=== PATIENT | female | born 1940 | race Caucasian/White ===

== ENCOUNTER 2017-03-23 09:40 | Emergency (ER) | payer MEDICARE ==
[~2017-03-23] VITALS: Ht 149.9 cm; Wt 41.4 kg
[~2017-03-23 09:40] MED LIST: APIX5TAB PO; ASPI81TA81 PO; ATOR20TA15 PO; BACL10TA PO; CALC500T35 PO; OMEP40CA2 PO; PERC10TA27 PO; TRAZ50TA12 PO
[2017-03-23 09:41] VITALS: BP 125/62; PULSE 77; RESP 16; TEMP 98.1; O2SAT 96
[2017-03-23] MEDS ORDERED: IBAN150T3 PO (09:59)
[2017-03-23] MEDS ORDERED: SENN8.8L PO (09:59)
[2017-03-23] MEDS ORDERED: MIRT1TAB PO (09:59)
[2017-03-23] MEDS ORDERED: BACL10TA PO (09:59)
[2017-03-23] MEDS ORDERED: AMLO10TA2 PO (09:59)
[2017-03-23] MEDS ORDERED: PANT40TA3 PO (09:59)
[2017-03-23] MEDS ORDERED: TETANUS/DIPHTHERIA TOXOID ADULT 0.5 ML VIAL IM ONE (10:00)
[2017-03-23] MEDS ORDERED: VANCOMYCIN INJ 600 MG in SODIUM CHLOR 0.9% 250 ML INJ 250 ML IV ONE (10:00)
[2017-03-23] MEDS ORDERED: SODIUM CHLOR 0.9% 1000 ML INJ 1,000 ML IV ONE (10:00)
--- NOTE | 2017-03-23 10:06 | PD ---
HPI Chief Complaint: Skin Problem Time Seen by Provider: 09:50 Travel History International Travel<30 days: No Contact w/Intl Traveler<30days: No Traveled to known affect area: No History of Present Illness HPI Patient is a 76-year-old female who presents to emergency room for evaluation of infection behind the ears. Patient reports that 3 days ago, she noticed increased redness behind her right ear, patient reports that the redness has been progressing and going down her neck. Patient reports that yesterday, she noticed that she had increased redness behind her left ear. Patient reports that symptoms are pruritic as well as painful in nature. Patient reports she has noticed drainage from the sites. Patient denies fever/chills. Denies using any new creams, lotions, detergents, facial products or hair products. Patient reports that her tetanus is not up-to-date. PFSH Past Medical History Hx Anticoagulant Therapy: Yes Arthritis: No Atrial Fibrillation: Yes Heart Rhythm Problems: Yes (afib) Cancer: No Cardiac Catheterization: Yes Cardiovascular Problems: Yes (afib) High Cholesterol: Yes COPD: Yes Cerebrovascular Accident: No Coronary Artery Disease: Yes Diabetes: No Diminished Hearing: Yes ([place]) Endocrine: No Genitourinary: No Hepatitis: No Hiatal Hernia: No Hypertension: Yes Immune Disorder: No Musculoskeletal: Yes (chronic back pain) Neurologic: Yes Psychiatric: No Reproductive: No Respiratory: Yes (copd) Immunizations Current: Yes Migraines: Yes Thyroid Disease: No Tetanus Vaccination: < 5 Years Influenza Vaccination: Yes Menopausal: Yes : 1 Para: 1 Past Surgical History Abdominal Surgery: No Body Medical Devices: screws in spine Cardiac Surgery: No Coronary Stent: Yes Ear Surgery: No Endocrine Surgery: No Eye Surgery: Yes (cateract) Genitourinary Surgery: No Gynecologic Surgery: Yes (hysterectomy prolapse) Hysterectomy: Yes Joint Replacement: No Neurologic Surgery: Yes (Spine) Oral Surgery: No Pacemaker: No Thoracic Surgery: No Other Surgery: Yes (varicose vein) Social History Alcohol Use: No (DENIES) Tobacco Use: Yes (1/2 PPD) Substance Use: No Allergies-Medications (Allergen,Severity, Reaction): Coded Allergies: Adhesives (Verified Allergy, Severe, RASH, 03/23/17) Reported Meds & Prescriptions Reported Meds & Active Scripts Active Probiotic (Lactobacillus Acidophilus) 1 Cap Cap 1 Cap PO TIDAC 10 Days Clindamycin (Clindamycin HCl) 300 Mg Cap 300 Mg PO Q6H 10 Days Reported Ibandronate (Ibandronate Sodium) 150 Mg Tab 150 Mg PO Q28D Baclofen 10 Mg Tab 10 Mg PO TID Amlodipine (Amlodipine Besylate) 10 Mg Tab 10 Mg PO DAILY Senexon Liq (Sennosides) 8.8 Mg/5 Ml Liq 8.8 Mg PO BID Mirtazapine 7.5 Mg Tab 7.5 Mg PO HS Pantoprazole (Pantoprazole Sodium) 40 Mg Tab 40 Mg PO DAILY Aspir-81 (Aspirin) 81 Mg Tabdr 1 Tab PO DAILY Atorvastatin (Atorvastatin Calcium) 20 Mg Tab 20 Mg PO DAILY Baclofen 10 Mg Tab 10 Mg PO TID Eliquis (Apixaban) 5 Mg Tab 5 Mg PO BID Percocet (Oxycodone-Acetaminophen) 10-325 mg Tab 1 Tab PO Q4H PRN Review of Systems General / Constitutional: No: Fever, Chills Skin: Positive Rash, Positive Itching, Positive Dryness Physical Exam Narrative GENERAL: No acute distress, nontoxic SKIN: Focused skin assessment warm/dry. Patient with bilateral ears red, swollen, there is drainage from the back of her right ear, there is redness from her right ear down to her neck, patient does have increased redness and swelling to her left ear, posterior auricle swelling and drainage with pain on palpation b/l HEAD: Atraumatic. Normocephalic. EYES: Pupils equal and round. No scleral icterus. No injection or drainage. ENT: No nasal bleeding or discharge. Mucous membranes pink and moist. NECK: Trachea midline. No JVD. CARDIOVASCULAR: Regular rate and rhythm. No murmur appreciated. RESPIRATORY: No accessory muscle use. Clear to auscultation. Breath sounds equal bilaterally. GASTROINTESTINAL: Abdomen soft, non-tender, nondistended. Hepatic and splenic margins not palpable. MUSCULOSKELETAL: No obvious deformities. No clubbing. No cyanosis. No edema. NEUROLOGICAL: Awake and alert. No obvious cranial nerve deficits. Motor grossly within normal limits. Normal speech. PSYCHIATRIC: Appropriate mood and affect; insight and judgment normal. Data Data Last Documented VS Vital Signs Date Time Temp Pulse Resp B/P Pulse Ox O2 Delivery O2 Flow Rate FiO2 03/23/17 12:19 78 14 122/60 100 Room Air 03/23/17 09:41 98.1 Orders Complete Blood Count With Diff (03/23/17 09:54) Comprehensive Metabolic Panel (03/23/17 09:54) Prothrombin Time / Inr (Pt) (03/23/17 09:54) Act Partial Throm Time (Ptt) (03/23/17 09:54) Vancomycin Inj (Vancomycin Inj) (03/23/17 10:00) Ct Facial Bones W Iv Contrast (03/23/17 ) Sodium Chlor 0.9% 1000 Ml Inj (Ns 1000 M (03/23/17 10:00) Blood Culture (03/23/17 10:07) Diphenhydramine Inj (Benadryl Inj) (03/23/17 10:15) Iohexol 350 Inj (Omnipaque 350 Inj) (03/23/17 11:02) Dexamethasone Inj (Decadron Inj) (03/23/17 11:30) Labs Laboratory Tests Test 03/23/17 10:05 White Blood Count 5.1 TH/MM3 Red Blood Count 4.02 MIL/MM3 Hemoglobin 12.7 GM/DL Hematocrit 38.2 % Mean Corpuscular Volume 95.0 FL Mean Corpuscular Hemoglobin 31.6 PG Mean Corpuscular Hemoglobin 33.3 % Concent Red Cell Distribution Width 13.8 % Platelet Count 174 TH/MM3 Mean Platelet Volume 8.2 FL Neutrophils (%) (Auto) 60.6 % Lymphocytes (%) (Auto) 26.1 % Monocytes (%) (Auto) 7.3 % Eosinophils (%) (Auto) 4.5 % Basophils (%) (Auto) 1.5 % Neutrophils # (Auto) 3.1 TH/MM3 Lymphocytes # (Auto) 1.3 TH/MM3 Monocytes # (Auto) 0.4 TH/MM3 Eosinophils # (Auto) 0.2 TH/MM3 Basophils # (Auto) 0.1 TH/MM3 CBC Comment DIFF FINAL Differential Comment Prothrombin Time 11.4 SEC Prothromb Time International 1.0 RATIO Ratio Activated Partial 29.4 SEC Thromboplast Time Sodium Level 146 MEQ/L Potassium Level 3.6 MEQ/L Chloride Level 109 MEQ/L Carbon Dioxide Level 29.8 MEQ/L Anion Gap 7 MEQ/L Blood Urea Nitrogen 21 MG/DL Creatinine 0.81 MG/DL Estimat Glomerular Filtration 68 ML/MIN Rate Random Glucose 138 MG/DL Calcium Level 9.2 MG/DL Total Bilirubin 0.4 MG/DL Aspartate Amino Transf 19 U/L (AST/SGOT) Alanine Aminotransferase 21 U/L (ALT/SGPT) Alkaline Phosphatase 88 U/L Total Protein 6.6 GM/DL Albumin 3.5 GM/DL [facility] Medical Decision Making Medical Screen Exam Complete: Yes Emergency Medical Condition: Yes Interpretation(s) Vital Signs Date Time Temp Pulse Resp B/P Pulse Ox O2 Delivery O2 Flow Rate FiO2 03/23/17 09:41 98.1 77 16 125/62 96 Differential Diagnosis Bilateral ear redness and drainage could be secondary to cellulitis, mastoiditis , allergic reaction, contact dermatitis Narrative Course Patient is a 76-year-old female who presents to emergency room with complaints of bilateral ear redness and drainage. Patient reports that she noticed drainage behind her right ear and noticed that the redness is going down her neck. Patient with no fevers or chills, reports that her tetanus is not up-to- date. Vital Signs Date Time Temp Pulse Resp B/P Pulse Ox O2 Delivery O2 Flow Rate FiO2 03/23/17 09:41 98.1 77 16 125/62 96 Labs as well as CT of the facial bones with IV contrast ordered to evaluate for mastoiditis. IV antibiotics as well as tetanus ordered. Patient now reports that her tetanus is up to date, tetanus canceled. CBC & BMP Diagram 03/23/17 10:05 All labs reviewed, blood cultures pending. CT of the facial bone with IV contrast shows a normal examination. There is no evidence of mastoiditis. Patient with most likely cellulitis of the face. I reviewed all labs and all studies with patient in detail. Plan to start patient on antibiotics. Patient will follow-up with her primary care doctor. Understands need to follow-up with primary care doctor or return to the emergency room in 48 hours for reevaluation. Patient understands that she must return to the emergency room if symptoms worsen or progress or she develops fevers or chills. Patient will take probiotics or eat plenty of the overdose with the clindamycin. Signs and symptoms of when to return to the emergency room reviewed with patient in detail. Diagnosis Primary Impression: Facial cellulitis Patient Instructions: General Instructions, Narcotic given in the ED Additional Instructions: Please provide patient with a copy of her lab work and studies at discharge Return to emergency room or your primary care doctor in 48 hours for reevaluation of your symptoms, return to emergency room earlier if symptoms progress or worsen or if you develop fevers or chills Please take all antibiotics as prescribed Please take a probiotic or eat plenty yogurt with your antibiotics. Please follow-up with cultures from today Please call your primary care doctor first thing when you leave this emergency room for earliest follow-up within 3 days Med/Other Pt SpecificInfo: Prescription(s) given Scripts Lactobacillus Acidophilus (Probiotic)1 Cap Cap1 Cap PO TIDAC 10 Days Ref 0 Prov:Negrita Norton DO 03/23/17 Clindamycin 300 Mg Evv375 Mg PO Q6H 10 Days Ref 0 Prov:Negrita Norton DO 03/23/17 Disposition: 01 DISCHARGE HOME Condition: Stable Negrita Norton DO March 23, 2017 10:06
[2017-03-23] MEDS ORDERED: diphenhydrAMINE HCL 50 MG/ML VIAL IV PUSH ONE (10:15)
[2017-03-23 10:20] LABS: CHLORIDE 109 MEQ/L (98-107); POTASSIUM 3.6 MEQ/L (3.5-5.1); SODIUM (NA) 146 MEQ/L (136-145)
[2017-03-23 10:23] LABS: AUTOMATED NEUTROPHIL # 3.1 TH/MM3 (1.8-7.7); BASOPHIL # 0.1 TH/MM3 (0-0.2); BASOPHIL % 1.5 % (0.0-2.0); EOSINOPHIL # 0.2 TH/MM3 (0-0.4); EOSINOPHIL % 4.5 % (0.0-4.0); HEMATOCRIT 38.2 % (35.0-46.0); HEMO FLAGS DIFF FINAL; LYMPH % 26.1 % (9.0-44.0); LYMPHOCYTE # 1.3 TH/MM3 (1.0-4.8); MEAN CORPUSCULAR HEMOGLOBIN 31.6 PG (27.0-34.0); MEAN CORPUSCULAR HGB CONC 33.3 % (32.0-36.0); MONO % 7.3 % (0.0-8.0); NEUT % 60.6 % (16.0-70.0); PLATELET COUNT 174 TH/MM3 (150-450); RED BLOOD COUNT 4.02 MIL/MM3 (4.00-5.30); RED CELL DISTRIBUTION WIDTH 13.8 % (11.6-17.2); WHITE BLOOD COUNT 5.1 TH/MM3 (4.0-11.0)
[2017-03-23 10:24] LABS: ANION GAP 7 MEQ/L (5-15); APTT (PATIENT) 29.4 SEC (24.3-30.1); BICARBONATE 29.8 MEQ/L (21.0-32.0); BLOOD UREA NITROGEN 21 MG/DL (7-18); PROTHROMBIN TIME - PATIENT 11.4 SEC (9.8-11.6)
[2017-03-23 10:27] LABS: ALT (GPT) 21 U/L (10-53); AST (GOT) 19 U/L (15-37); GLOMERULAR FILTRATION RATE 68 ML/MIN (>89)
[2017-03-23 10:29] LABS: TOTAL BILIRUBIN ADULT 0.4 MG/DL (0.2-1.0)
[2017-03-23 10:30] LABS: ALKALINE PHOSPHATASE 88 U/L (45-117)
[2017-03-23] MEDS ORDERED: IOHEXOL 350 MG/ML 10 ML VIAL (for RAD DIAG) IV ONE (11:02)
--- NOTE | 2017-03-23 11:17 | RADHPO ---
EXAM DATE/TIME: 03/23/2017 10:47 [facility] COMPARISON: No previous studies available for comparison. INDICATIONS : Right facial pain, swelling and redness. Evaluate for tumor. IV CONTRAST: 60 cc Omnipaque 350 (iohexol) IV RADIATION DOSE: 29.88 CTDIvol (mGy) MEDICAL HISTORY : Chronic obstructive pulmonary disease. Hypertension. Cardiovascular disease SURGICAL HISTORY : Hysterectomy. ENCOUNTER: Initial ACUITY: 4 - 6 days PAIN SCALE: 7/10 LOCATION: Right facial TECHNIQUE: Volumetric scanning of the facial bones was performed. Using automated exposure control and adjustme nt of the mA and/or kV according to patient size, radiation dose was kept as low as reasonably achiev able to obtain optimal diagnostic quality images. FINDINGS: ORBITS: The orbital and infraorbital osseous structures are intact. The retroconal structures have a normal configuration. No radiopaque foreign bodies are seen. NASAL BONE: The nasal bone and maxillary spine are intact ZYGOMATIC ARCHES: Symmetric without evidence of fracture. SINUSES: The maxillary, ethmoid and frontal sinuses are intact. No air-fluid levels seen. NASAL CAVITY: The nasal septum is intact and midline. The lacrimal ducts are intact. SOFT TISSUES: No radiopaque foreign bodies seen. No soft-tissue swelling is seen. INTRACRANIAL: No intracranial air seen. CRIBIFORM PLATE: Grossly intact. CONCLUSION: Normal examination. Virgil Mendoza MD on March 23, 2017 at 11:08 Board Certified Radiologist. This report was verified electronically.
[2017-03-23] MEDS ORDERED: CLIN1CAP6 PO (11:22)
[2017-03-23] MEDS ORDERED: LACTCAP8 PO (11:22)
[2017-03-23] MEDS ORDERED: DEXAMETHASONE SOD PHOS 20 MG/5 ML VIAL IV PUSH ONE (11:30)
[2017-03-23 12:19] VITALS: BP 122/60; PULSE 78; RESP 14; O2SAT 100
== END 2017-03-23 12:53 | disposition home or self-care (01) ==
LOC: PHED 09:40
DX: L03.211 Cellulitis of face (principal); F17.210 Nicotine dependence, cigarettes, uncomplicated; I48.91 Unspecified atrial fibrillation; E78.00 Pure hypercholesterolemia, unspecified; J44.9 Chronic obstructive pulmonary disease, unspecified; I25.10 Atherosclerotic heart disease of native coronary artery without angina pectoris; I10 Essential (primary) hypertension; Z79.01 Long term (current) use of anticoagulants; Z95.5 Presence of coronary angioplasty implant and graft
CPT/HCPCS: 70487; 80053; 85025; 85610; 85730; 87040; 96365; 96366; 96375; 99284; J1100; J1200; J3370; J7030; J7050; Q9967

== ENCOUNTER 2018-08-27 11:53 | Inpatient (IN) ==
--- NOTE | 2018-08-27 12:58 | XR ---
EXAM DATE: 08/27/2018 12:25 PM EDT AGE/SEX: 77 years / Female INDICATIONS: Shortness of breath and swelling in lower legs. CLINICAL DATA: This is the patient's initial encounter. Patient reports that signs and symptoms have been present for 3 days and indicates a pain score of 0/10. MEDICAL/SURGICAL HISTORY: Cardiovascular disease. . Spinal cord stimulator COMPARISON: [facility] [place], CHEST SINGLE AP, 02/18/2016. . FINDINGS: A single AP view of the chest demonstrates some atelectasis involving the medial left lower lung. Oth erwise, the lung de la torre are grossly clear.. The heart size is diffusely enlarged. The bony structure s are grossly intact. No significant changes compared to the prior exam. Spinal leads overlying the m id thoracic spine. CONCLUSION: 1. There is atelectasis involving the medial left lower lung. Otherwise, the rest the lungs are rikki sly clear.. 2. Moderate diffuse cardiomegaly. Electronically signed by: Dino Arora MD 08/27/2018 12:57 PM EDT
[2018-08-27 13:15] LABS: Baso % (Auto) 0.5 % (0.0-2.0); Eos % (Auto) 0.6 % (0.0-4.0); Hematocrit 42.3 % (35.0-46.0); Hemoglobin 13.9 gm/dL (11.6-15.3); Lymph # (Auto) 0.8 th/mm3 (1.0-4.8); Lymph % (Auto) 16.3 % (9.0-44.0); Mean Corpuscular HGB Conc 32.7 % (32.0-36.0); Mean Corpuscular Hemoglobin 31.6 pg (27.0-34.0); Mean Corpuscular Volume 96.5 fL (80.0-100.0); Mean Platelet Volume 8.1 fL (7.0-11.0); Mono # (Auto) 0.4 th/mm3 (0.0-0.9); Mono % (Auto) 7.6 % (0.0-8.0); Neut # (Auto) 3.8 th/mm3 (1.8-7.7); Platelet Count 185 th/mm3 (150-450); Red Blood Count 4.39 mil/mm3 (4.00-5.30); Red Cell Distribution Width 14.9 % (11.6-17.2); White Blood Count 5.1 th/mm3 (4.0-11.0)
[2018-08-27 13:30] LABS: Alanine Aminotransferase 38 U/L (10-53)
[2018-08-27 13:34] LABS: Alkaline Phosphatase 109 U/L (45-117); Total Protein 7.2 g/dL (6.4-8.2); Troponin I 0.05 ng/mL (0.02-0.05)
[2018-08-27 13:37] LABS: Anion Gap 8 meq/L (5-15); Aspartate Aminotransferase 59 U/L (15-37); Blood Urea Nitrogen 23 mg/dL (7-18); Calcium 9.3 mg/dL (8.5-10.1); Carbon Dioxide 25.5 meq/L (21.0-32.0); Chloride 106 meq/L (98-107); Glomerular Filtration Rate 65 mL/min (>89); Glucose,Random 71 mg/dL (74-106); Magnesium 2.1 mg/dL (1.5-2.5); Sodium 139 meq/L (136-145)
[2018-08-27 13:38] LABS: Potassium 5.6 meq/L (3.5-5.1)
--- NOTE | 2018-08-27 14:01 | ED ---
HPI General Chief complaint: Respiratory Symptoms Stated complaint: SOB/Leg,Foot Swelling Time Seen by Provider: 08/27/18 12:21 Source: patient Mode of arrival: ambulatory Limitations: no limitations History of Present Illness HPI narrative: 77-year-old woman who presents to the emergency department complaining of increased shortness of breath and leg swelling ongoing for the past week or so. She is a history of A. fib. She has no stated history of CHF. States her legs have been more swollen, and she is been having worsening trouble breathing and some discomfort worsening through today. No real cough cold symptoms. No indira chest pain. No nausea or vomiting. Symptoms been constant, persistent, worsening, unrelieved with current treatment. Related Data Home Medications Medication Instructions Recorded Confirmed amlodipine 10 mg PO DAILY 08/27/18 08/27/18 apixaban [Eliquis] 5 mg PO BID 08/27/18 08/27/18 atorvastatin 20 mg PO HS 08/27/18 08/27/18 baclofen 10 mg PO TID 08/27/18 08/27/18 ibandronate 150 mg PO QMONTH 08/27/18 08/27/18 mirtazapine 15 mg PO HS 08/27/18 08/27/18 oxycodone-acetaminophen 1 tab PO Q4-6H PRN 08/27/18 08/27/18 pantoprazole 40 mg PO DAILY 08/27/18 08/27/18 polyethylene glycol 3350 17 g PO DAILY 08/27/18 08/27/18 sennosides-docusate sodium 1 tab PO BID PRN 08/27/18 08/27/18 [Senexon-S] trazodone 100 mg PO HS 08/27/18 08/27/18 Allergies Allergy/AdvReac Type Severity Reaction Status Date / Time adhesive Allergy Severe RASH Verified 08/22/18 17:44 Review of Systems ROS: all other systems reviewed are negative [facility] Medical History Medical History Afib (Acute) Tachycardia (Acute) Social History Social History Substance History: No History of Abuse Second Hand Smoke Exposure: Yes Smoking Status: Current every day smoker Tobacco Type: Cigarettes How Often Do You Have a Drink Containing Alcohol: Never Recent Travel in [facility] within the Last 8 Weeks: No Recent Out of Country Travel within the Last 8 Weeks: No Immunization History Tetanus Immunization: <5 Years Exam Narrative Exam Narrative: GENERAL: Well-appearing 77-year-old woman, no acute distress. SKIN: Focused skin assessment warm/dry. HEAD: Atraumatic. Normocephalic. EYES: Pupils equal and round. No scleral icterus. No injection or drainage. ENT: No nasal bleeding or discharge. Mucous membranes pink and moist. NECK: Trachea midline. No JVD. CARDIOVASCULAR: Heart rates irregular, good perfusion. RESPIRATORY: No accessory muscle use. Clear to auscultation. Breath sounds equal bilaterally. GASTROINTESTINAL: Abdomen soft, non-tender, nondistended. Hepatic and splenic margins not palpable. MUSCULOSKELETAL: No obvious deformities. Pitting edema bilateral lower extremities. NEUROLOGICAL: Awake and alert. No obvious cranial nerve deficits. Motor grossly within normal limits. Normal speech. PSYCHIATRIC: Appropriate mood and affect; insight and judgment normal. Course Initial Documented Vital Signs Temperature 96.9 F L 08/27/18 11:56 Pulse Rate 110 H 08/27/18 11:56 Respiratory Rate 22 08/27/18 11:56 Blood Pressure 118/64 08/27/18 11:56 Pulse Oximetry 94 L 08/27/18 11:56 Last Documented Vital Signs Temperature 96.9 F L 08/27/18 11:56 Pulse Rate 110 H 08/27/18 11:56 Respiratory Rate 22 08/27/18 11:56 Blood Pressure 118/64 08/27/18 11:56 Pulse Oximetry 94 L 08/27/18 11:56 Medical Decision Making MDM Narrative Medical decision making narrative: 77-year-old woman, history of A. fib, worsening lower extremity edema, shortness of breath, suggestive of volume overload or CHF. She also looks a little bit pale. Patient is on blood thinners. Denies dark stools or GI bleed. Will check labs, chest x-ray, reassess. Medical Screen Exam Complete: Yes Emergency Medical Condition: Yes Lab Data Result diagrams: 08/27/18 12:40 08/27/18 12:40 Lab Results 08/27/18 08/27/18 08/27/18 Range/Units 12:40 12:40 12:40 WBC 5.1 (4.0-11.0) th/mm3 RBC 4.39 (4.00-5.30) mil/mm3 Hgb 13.9 (11.6-15.3) gm/dL Hct 42.3 (35.0-46.0) % MCV 96.5 (80.0-100.0) fL MCH 31.6 (27.0-34.0) pg MCHC 32.7 (32.0-36.0) % RDW 14.9 (11.6-17.2) % Plt Count 185 (150-450) th/mm3 MPV 8.1 (7.0-11.0) fL Neut % (Auto) 75.0 H (16.0-70.0) % Lymph % (Auto) 16.3 (9.0-44.0) % Mchenry % (Auto) 7.6 (0.0-8.0) % Eos % (Auto) 0.6 (0.0-4.0) % Baso % (Auto) 0.5 (0.0-2.0) % Neut # (Auto) 3.8 (1.8-7.7) th/mm3 Lymph # (Auto) 0.8 L (1.0-4.8) th/mm3 [place] # (Auto) 0.4 (0.0-0.9) th/mm3 Eos # (Auto) 0.0 (0.0-0.4) th/mm3 Baso # (Auto) 0.0 (0.0-0.2) th/mm3 WBC Differential . Differential Comment Auto diff final PT (9.8-11.6) sec INR Ratio APTT (24.3-30.1) sec Sodium 139 (136-145) meq/L Potassium 5.6 H (3.5-5.1) meq/L Chloride 106 (98-107) meq/L Carbon Dioxide 25.5 (21.0-32.0) meq/L Anion Gap 8 (5-15) meq/L BUN 23 H (7-18) mg/dL Creatinine 0.84 (0.50-1.00) mg/dL Estimated GFR 65 L (>89) mL/min Random Glucose 71 L (74-106) mg/dL Calcium 9.3 (8.5-10.1) mg/dL Magnesium 2.1 (1.5-2.5) mg/dL Total Bilirubin 1.0 (0.2-1.0) mg/dL AST 59 H (15-37) U/L ALT 38 (10-53) U/L Alkaline Phosphatase 109 (45-117) U/L Troponin I 0.05 (0.02-0.05) ng/mL B-Natriuretic Peptide 444 H (0-100) pg/mL Total Protein 7.2 (6.4-8.2) g/dL Albumin 3.0 L (3.4-5.0) g/dL 08/27/18 Range/Units 14:13 WBC (4.0-11.0) th/mm3 RBC (4.00-5.30) mil/mm3 Hgb (11.6-15.3) gm/dL Hct (35.0-46.0) % MCV (80.0-100.0) fL MCH (27.0-34.0) pg MCHC (32.0-36.0) % RDW (11.6-17.2) % Plt Count (150-450) th/mm3 MPV (7.0-11.0) fL Neut % (Auto) (16.0-70.0) % Lymph % (Auto) (9.0-44.0) % Mchenry % (Auto) (0.0-8.0) % Eos % (Auto) (0.0-4.0) % Baso % (Auto) (0.0-2.0) % Neut # (Auto) (1.8-7.7) th/mm3 Lymph # (Auto) (1.0-4.8) th/mm3 [place]henry # (Auto) (0.0-0.9) th/mm3 Eos # (Auto) (0.0-0.4) th/mm3 Baso # (Auto) (0.0-0.2) th/mm3 WBC Differential Differential Comment PT 12.4 H (9.8-11.6) sec INR 1.2 Ratio APTT 29.0 (24.3-30.1) sec Sodium (136-145) meq/L Potassium (3.5-5.1) meq/L Chloride (98-107) meq/L Carbon Dioxide (21.0-32.0) meq/L Anion Gap (5-15) meq/L BUN (7-18) mg/dL Creatinine (0.50-1.00) mg/dL Estimated GFR (>89) mL/min Random Glucose (74-106) mg/dL Calcium (8.5-10.1) mg/dL Magnesium (1.5-2.5) mg/dL Total Bilirubin (0.2-1.0) mg/dL AST (15-37) U/L ALT (10-53) U/L Alkaline Phosphatase (45-117) U/L Troponin I (0.02-0.05) ng/mL B-Natriuretic Peptide (0-100) pg/mL Total Protein (6.4-8.2) g/dL Albumin (3.4-5.0) g/dL Imaging Data Radiologist's impression: Chest X-Ray 08/27/18 12:25 CONCLUSION: 1. There is atelectasis involving the medial left lower lung. Otherwise, the rest the lungs are grossly clear.. 2. Moderate diffuse cardiomegaly. ECG Data Attestation: I personally reviewed and interpreted this ECG as follows: Interpretation: My review of EKG: A. fib, rate of 92, some nonspecific lateral ST depression, no definite acute ischemia. Discharge Plan Discharge Disposition Patient Disposition: 30 Still Patient Physicians Team ED Provider: Praful Chapman Primary Care Provider: Javi Morales Rxs /Orders / Referrals /Forms Prescriptions: No Action atorvastatin 20 mg Tablet 20 mg PO HS RF: 0 polyethylene glycol 3350 17 gram Powder In Packet 17 g PO DAILY RF: 0 sennosides-docusate sodium [Senexon-S] 8.6-50 mg Tablet 1 tab PO BID PRN (Reason: Constipation) RF: 0 trazodone 100 mg Tablet 100 mg PO HS RF: 0 baclofen 10 mg Tablet 10 mg PO TID RF: 0 amlodipine 10 mg Tablet 10 mg PO DAILY RF: 0 pantoprazole 40 mg Tablet,Delayed Release (Dr/Ec) 40 mg PO DAILY RF: 0 mirtazapine 15 mg Tablet 15 mg PO HS RF: 0 oxycodone-acetaminophen 7.5-325 mg Tablet 1 tab PO Q4-6H PRN (Reason: Pain) RF: 0 ibandronate 150 mg Tablet 150 mg PO QMONTH RF: 0 apixaban [Eliquis] 5 mg Tablet 5 mg PO BID RF: 0 Discharge Interventions Interventions: Vital Signs Last Done: 08/27/18 11:56 Status ED Status: Ready for Discharge
[2018-08-27 14:33] LABS: INR 1.2 Ratio; Prothrombin Time 12.4 sec (9.8-11.6)
[2018-08-27] MEDS ORDERED: Senna/Docusate Sodium 8.6/50 MG Tablet PO PRN (14:50)
[2018-08-27] MEDS ORDERED: Baclofen 10 MG Tablet PO PRN (14:51)
[2018-08-27] MEDS ORDERED: Acetaminophen 325 MG Tablet PO PRN (14:54)
[2018-08-27] MEDS: Metoprolol Tartrate 25 MG Tablet PO SCH ×2 (15:20→20:03)
--- NOTE | 2018-08-27 16:19 | P.HPIM ---
History of Present Illness Primary Care Physician: Javi Morales MD Chief Complaint: Shortness of breath History of Present Illness: The patient is a 77-year-old female with past medical history of atrial fibrillation who is presenting to the hospital with shortness of breath and leg swelling. The patient states that over the past 2 days she has noticed leg swelling. She says her left leg is more swollen than her right leg. She says she experiences pain in both of her lower extremities, a little more pain in her left leg than her right. She states that she has noticed more shortness of breath over the past 2 days. She says she never is short of breath. She does endorse left-sided chest wall tenderness. She rates the pain as an 8 out of 10 in severity. She says the pain is worse when walking and when coughing. The patient had a fall last where she has a fracture in her left wrist. She is currently in a splint and was supposed to have surgical repair this morning but was referred to the hospital in the orthopedic office because of her respiratory status and leg swelling. The patient states that she follows with a integration architect regularly. She says she is able to lie flat on her back without getting short of breath. She does not wake up in the middle of the night gasping for air. The patient is a chronic everyday smoker. Review of Systems All other systems reviewed negative except as stated in HPI PMFSH - History History Provided By: Patient, Family Member - Medical History Medical History: Medical History (Last Updated 08/27/18 @ 16:17 by Kaveh Rollins DO) Chronic pain History of hysterectomy Hypertension Afib Tachycardia - Surgical History Surgical History: Surgical History (Last Updated 08/27/18 @ 16:17 by Kaveh Rollins DO) Previous back surgery - Family History Family History: Family History (Last Updated 08/27/18 @ 16:18 by Kaveh Rollins DO) Other Alcohol abuse Tuberculosis - Social History I have reviewed the patient's Social History: Yes - Tobacco History Second Hand Smoke Exposure: Yes Tobacco Use In Past 30 Days: Yes Smoking Status: Current every day smoker Tobacco Type: Cigarettes - Alcohol History How Often Do You Have a Drink Containing Alcohol: Never - Substance Use History Substance History: No History of Abuse - Travel History Recent Travel in the [facility] Within the Last 8 Weeks: No Recent Travel Out of the Country Within the Last 8 Weeks: No - Immunization History Tetanus Immunization: <5 Years Medications and Allergies Active Medications: Active Medications Acetaminophen (Tylenol) 650 mg PO Q4H PRN PRN Reason: Temp > 100.4, pain 1-2 Amlodipine Besylate (Norvasc) 10 mg PO DAILY [facility] Apixaban (Eliquis) 5 mg PO BID [facility] Atorvastatin Calcium (Lipitor) 20 mg PO HS [facility] Baclofen (Lioresal) 10 mg PO TID PRN PRN Reason: MUSCLE SPASM Furosemide (Lasix Inj) 20 mg IV.PUSH BID@0900,1800 [facility] Metoprolol Tartrate (Lopressor) 25 mg PO BID [facility] Last Admin: 08/27/18 15:20 Dose: 25 mg Metoprolol Tartrate (Lopressor Inj) 5 mg IV.PUSH ONCE ONE Stop: 08/27/18 16:10 Mirtazapine (Remeron) 15 mg PO HS [facility] Oxycodone/Acetaminophen (Percocet 7.5/325 Mg) 1 tab PO Q4H PRN PRN Reason: pain 3-10 Pantoprazole Sodium (Protonix) 40 mg PO DAILY [facility] Polyethylene Glycol (Miralax) 17 gm PO DAILY [facility] Senna/Docusate Sodium (Tammy-Colace) 1 tab PO BID PRN PRN Reason: Constipation Trazodone HCl (Desyrel) 100 mg PO HS [facility] Allergies Allergy/AdvReac Type Severity Reaction Status Date / Time adhesive Allergy Severe RASH Verified 08/22/18 17:44 Home Medications Medication Instructions Recorded Confirmed Type amlodipine 10 mg PO DAILY 08/27/18 08/27/18 History apixaban [Eliquis] 5 mg PO BID 08/27/18 08/27/18 History atorvastatin 20 mg PO HS 08/27/18 08/27/18 History baclofen 10 mg PO TID 08/27/18 08/27/18 History ibandronate 150 mg PO QMONTH 08/27/18 08/27/18 History mirtazapine 15 mg PO HS 08/27/18 08/27/18 History oxycodone-acetaminophen 1 tab PO Q4-6H PRN 08/27/18 08/27/18 History pantoprazole 40 mg PO DAILY 08/27/18 08/27/18 History polyethylene glycol 3350 17 g PO DAILY 08/27/18 08/27/18 History sennosides-docusate sodium 1 tab PO BID PRN 08/27/18 08/27/18 History [Senexon-S] trazodone 100 mg PO HS 08/27/18 08/27/18 History Exam Vital signs: Vital Signs 08/27/18 11:56 08/27/18 12:25 08/27/18 15:19 Temperature 96.9 F L Pulse Rate 110 H 121 H Respiratory Rate 22 28 H Blood Pressure 118/64 155/106 H Pulse Oximetry 94 L 95 98 Intake & Output 08/26/18 08/27/18 08/27/18 18:59 06:59 18:59 Weight 45.813 kg Narrative: GENERAL: No acute distress. SKIN: Focused skin assessment warm/dry. HEAD: Atraumatic. Normocephalic. EYES: Pupils equal and round. No scleral icterus. No injection or drainage. ENT: No nasal bleeding or discharge. Mucous membranes pink and moist. NECK: Trachea midline. No JVD. CARDIOVASCULAR: Tachycardic, irregularly irregular. RESPIRATORY: Mild expiratory wheezing, mild crackles at the bases. GASTROINTESTINAL: Abdomen soft, non-tender, nondistended. Hepatic and splenic margins not palpable. MUSCULOSKELETAL: No obvious deformities. 1-2+ pitting edema in the lower extremities. NEUROLOGICAL: Awake and alert. Antalgic gait noted. No obvious cranial nerve deficits. Motor grossly within normal limits. Normal speech. PSYCHIATRIC: Appropriate mood and affect; insight and judgment normal. Results - Labs CBC & Chem 7: 08/27/18 12:40 08/27/18 12:40 Labs: Short CBC 08/27/18 Range/Units 12:40 WBC 5.1 (4.0-11.0) th/mm3 Hgb 13.9 (11.6-15.3) gm/dL Hct 42.3 (35.0-46.0) % Plt Count 185 (150-450) th/mm3 BMP 08/27/18 12:40 Sodium 139 Potassium 5.6 H Chloride 106 Carbon Dioxide 25.5 BUN 23 H Creatinine 0.84 Calcium 9.3 Cardiac Enzymes 08/27/18 Range/Units 12:40 Troponin I 0.05 (0.02-0.05) ng/mL Liver Function 08/27/18 Range/Units 12:40 Total Bilirubin 1.0 (0.2-1.0) mg/dL AST 59 H (15-37) U/L ALT 38 (10-53) U/L Alkaline Phosphatase 109 (45-117) U/L Albumin 3.0 L (3.4-5.0) g/dL - Imaging Impressions Chest X-Ray 08/27/18 12:25 CONCLUSION: 1. There is atelectasis involving the medial left lower lung. Otherwise, the rest the lungs are grossly clear.. 2. Moderate diffuse cardiomegaly. Caprini VTE Risk Assessment Caprini VTE Risk Assessment: Moderate/High Risk (score >= 2) Caprini Risk Assessment Model: Point Value = 1 Point Value = 2 Point Value = 3 Point Value = 5 Age 41-60 Minor surgery BMI > 25 kg/m2 Swollen legs Varicose veins or History of unexplained or recurrent spontaneous Oral contraceptives or hormone replacement Sepsis (< 1 month) Serious lung disease, including pneumonia (< 1 month) Abnormal pulmonary function Acute myocardial infarction Congestive heart failure (< 1 month) History of inflammatory bowel disease Medical patient at bed rest Age 61-74 Arthroscopic surgery Major open surgery (> 45 min) Laparoscopic surgery (> 45 min) Malignancy Confined to bed (> 72 hours) Immobilizing plaster cast Central venous access Age >= 75 History of VTE Family history of VTE Factor V Leiden Prothrombin [id number] Lupus anticoagulant Anticardiolipin antibodies Elevated serum homocysteine Heparin-induced thrombocytopenia Other congenital or acquired thrombophilia Stroke (< 1 month) Elective arthroplasty Hip, pelvis, or leg fracture Acute spinal cord injury (< 1 month) Prophylaxis Regimen: Total Risk Factor Score Risk Level Prophylaxis Regimen 0-1 Low Early ambulation 2 Moderate Order ONE of the following: *Sequential Compression Device (SCD) *Heparin 5000 units SQ BID 3-4 Higher Order ONE of the following medications: *Heparin 5000 units SQ TID *Enoxaparin/Lovenox 40 mg SQ daily (WT < 150 kg, CrCl > 30 mL/min) *Enoxaparin/Lovenox 30 mg SQ daily (WT < 150 kg, CrCl > 10-29 mL/min) *Enoxaparin/Lovenox 30 mg SQ BID (WT < 150 kg, CrCl > 30 mL/min) AND/OR *Sequential Compression Device (SCD) 5 or more Highest Order ONE of the following medications: *Heparin 5000 units SQ TID (Preferred with Epidurals) *Enoxaparin/Lovenox 40 mg SQ daily (WT < 150 kg, CrCl > 30 mL/min) *Enoxaparin/Lovenox 30 mg SQ daily (WT < 150 kg, CrCl > 10-29 mL/min) *Enoxaparin/Lovenox 30 mg SQ BID (WT < 150 kg, CrCl > 30 mL/min) AND *Sequential Compression Device (SCD) Assessment and Plan - Plan Shortness of breath/ Leg swelling/ Chest pain CXR with cardiomegaly. BNP elevated over 400. Lower extremity edema new in onset. Concern for acute CHF exacerbation in the setting of uncontrolled A fib. The pt says she has recently had a stress test. -continue Lasix 20 mg IV BID. -follow Is and Os, daily weights. -consult pt's integration architect. -echo ordered. -continue cardiac regimen. Add Lopressor. -telemetry. -trend trops. -smoking cessation instruction. -oxygen and nebs as needed. -pain control. A fib wit RVR Pt is not on rate control meds. She is on Eliquis. -continue Eliquis. -telemetry. -Lopressor 25 mg PO BID started. Lopressor 5 mg IV x 1. Cardizem gtt if no improvement. -cardiology consult. HTN Likely exacerbated by pain. -pain control with a bowel regimen. -continue amlodipine. Lopressor added. -Vasotec as needed. Left wrist fracture The pt was supposed to have operative repair today. -pain control. -PT/ OT. -outpt follow-up with ortho. Chronic pain The pt has had multiple spinal surgeries. -continue Percocet. -PT. Hyperkalemia Hemolysis noted on lab draw, likely false value. -follow BMP. PPx: Eliquis Code Status: Full
[2018-08-27] MEDS ORDERED: Metoprolol Inj 5 MG/5 ML Vial IV.PUSH ONE (17:15)
[2018-08-27] MEDS: traZODone 100 MG Tablet PO SCH (20:02)
[2018-08-27] MEDS: Mirtazapine 15 MG Tablet PO SCH (20:03)
[2018-08-28 05:54] LABS: Baso % (Auto) 0.3 % (0.0-2.0); Eos # (Auto) 0.1 th/mm3 (0.0-0.4); Eos % (Auto) 1.4 % (0.0-4.0); Hematocrit 37.2 % (35.0-46.0); Hemoglobin 12.4 gm/dL (11.6-15.3); Lymph # (Auto) 1.1 th/mm3 (1.0-4.8); Lymph % (Auto) 25.4 % (9.0-44.0); Mean Corpuscular HGB Conc 33.3 % (32.0-36.0); Mean Corpuscular Hemoglobin 31.5 pg (27.0-34.0); Mean Corpuscular Volume 94.5 fL (80.0-100.0); Mean Platelet Volume 8.2 fL (7.0-11.0); Mono # (Auto) 0.3 th/mm3 (0.0-0.9); Neut # (Auto) 2.7 th/mm3 (1.8-7.7); Neut % (Auto) 64.9 % (16.0-70.0); Platelet Count 177 th/mm3 (150-450); Red Blood Count 3.93 mil/mm3 (4.00-5.30); Red Cell Distribution Width 15.2 % (11.6-17.2); White Blood Count 4.2 th/mm3 (4.0-11.0)
[2018-08-28 06:25] LABS: Alanine Aminotransferase 28 U/L (10-53); Albumin 2.5 g/dL (3.4-5.0); Alkaline Phosphatase 95 U/L (45-117); Anion Gap 9 meq/L (5-15); Aspartate Aminotransferase 24 U/L (15-37); Blood Urea Nitrogen 19 mg/dL (7-18); Calcium 8.1 mg/dL (8.5-10.1); Carbon Dioxide 30.7 meq/L (21.0-32.0); Chloride 105 meq/L (98-107); Glomerular Filtration Rate 73 mL/min (>89); Glucose,Random 76 mg/dL (74-106); Potassium 3.2 meq/L (3.5-5.1); Sodium 145 meq/L (136-145); Total Protein 5.8 g/dL (6.4-8.2)
[2018-08-28] MEDS: Metoprolol Tartrate 25 MG Tablet PO SCH ×2 (09:23→20:04)
[2018-08-28] MEDS: Polyethylene Glycol 3350 17 GM Packet PO SCH (09:24)
[2018-08-28] MEDS: dilTIAZem 30 MG Tablet PO SCH ×4 (09:26→20:05)
--- NOTE | 2018-08-28 09:34 | MB ---
cc: Gilberto Stafford MD DATE: 08/28/2018 REASON FOR CONSULTATION: CHF exacerbation, atrial fibrillation with rapid ventricular response. HISTORY OF PRESENT ILLNESS: This is a 77-year-old female who is well known to me. She has a past medical history of chronic atrial fibrillation and coronary artery disease, status post stenting, history of moderate to severe mitral regurgitation, severe tricuspid regurgitation. The patient presented to [facility] emergency room after she tried to get up and fell and sustained injury to her left arm. Subsequently, the patient started having pain in her chest. She reported lower extremity edema and increasing shortness of breath with exertion over the past couple of days prior to her presentation to the emergency room. The initial workup included a 12-lead EKG which showed atrial fibrillation with rapid ventricular response. BNP was elevated at 444. Cardiac enzymes were within normal limits. The patient is currently chest pain free. She denies presyncope and syncope. She also denies unprovoked or exertional chest pains. She admits to increasing shortness of breath and lower extremity edema as mentioned above. SOCIAL HISTORY: The patient smoked for a long time and she continues to do so. FAMILY HISTORY: Noncontributory. REVIEW OF SYSTEMS: HEENT: No headaches, lightheadedness, or dizziness. CARDIOVASCULAR: History of coronary artery disease, status post stenting, mitral regurgitation and atrial fibrillation. PULMONARY: No history of asthma or COPD, shortness of GERD. GENITOURINARY: No history of renal failure. The remainder of her review of system is within normal limits. PHYSICAL EXAMINATION: VITAL SIGNS: Showed blood pressure of 130/70 with a heart rate of 120, respiratory rate of 12. The patient is afebrile. NECK: Supple with no jugular vein distention. CHEST: No crackles. HEART: S1 normal intensity, S2 single. Irregularly irregular. No S3 appreciated. ABDOMEN: Benign. EXTREMITIES: +1 edema. IMPRESSION: 1. Chronic atrial fibrillation with rapid ventricular response. Would continue Eliquis and start the patient on oral Cardizem for rate control. 2. Acute on chronic congestive heart failure exacerbation secondary to diastolic dysfunction. The patient is placed on gentle diuresis. A 2-D echocardiogram has been ordered. 3. Hypertension. 4. Chronic tobacco abuse. 5. History of coronary artery disease, status post stenting. RECOMMENDATIONS: As mentioned above, we will continue on loading treatment and obtain 2-dimensional echocardiogram for review. The patient has been started on Cardizem orally for rate control. Eliquis will be continued. I will continue to follow and provide further recommendations accordingly. MD NATHANIEL Marquez/jen , 08:25 AM , 08:35 AM
[2018-08-28] MEDS: amLODIPine 10 MG Tablet PO SCH (10:04)
--- NOTE | 2018-08-28 15:04 | P.PNIM ---
Subjective Interval history: Patient reports her shortness of breath is improved today. No chest pain. Continues to have lower extremity edema. Physical Exam Vital signs: Vital Signs 08/27/18 15:19 08/27/18 18:00 08/27/18 19:00 Temperature 97.2 F L 97.6 F 97.9 F Pulse Rate 121 H 60 90 Respiratory Rate 28 H 17 16 Blood Pressure 155/106 H 124/88 114/75 Pulse Oximetry 98 97 97 08/27/18 20:00 08/27/18 21:00 08/27/18 22:00 Temperature Pulse Rate 91 H 85 74 Respiratory Rate Blood Pressure Pulse Oximetry 97 08/27/18 23:00 08/28/18 00:00 08/28/18 01:00 Temperature 97.9 F Pulse Rate 59 L 77 68 Respiratory Rate 16 Blood Pressure 96/64 L Pulse Oximetry 94 L 08/28/18 02:00 08/28/18 03:00 08/28/18 04:00 Temperature 97.8 F Pulse Rate 86 77 77 Respiratory Rate 20 Blood Pressure 113/85 Pulse Oximetry 95 08/28/18 05:00 08/28/18 06:00 08/28/18 07:00 Temperature 97.6 F Pulse Rate 82 88 94 H Respiratory Rate 18 Blood Pressure 118/81 Pulse Oximetry 97 08/28/18 08:00 08/28/18 09:00 08/28/18 10:00 Temperature Pulse Rate 130 H 103 H 98 H Respiratory Rate Blood Pressure Pulse Oximetry 97 08/28/18 11:00 08/28/18 12:00 08/28/18 13:00 Temperature 98.1 F Pulse Rate 84 98 H 102 H Respiratory Rate 24 Blood Pressure 118/80 Pulse Oximetry 95 08/28/18 14:00 Temperature Pulse Rate 96 H Respiratory Rate Blood Pressure Pulse Oximetry Intake & Output 08/27/18 08/28/18 08/28/18 18:59 06:59 18:59 Intake Total 580 / 580 Balance 580 / 580 Weight 45.813 kg 47.8 kg Intake: Oral 580 / 580 Other: # Incontinent Voids 1 Date of Last Bowel Movement 08/27/18 Narrative: GENERAL: This is a well-nourished, well-developed patient, in no apparent distress. CARDIOVASCULAR: Normal rate but irregular rhythm without murmurs, gallops, or rubs. RESPIRATORY: Good respiratory efforts. Breath sounds equal and clear to auscultation bilaterally. GASTROINTESTINAL: Abdomen soft, non-tender, non-distended. Normal active bowel sounds MUSCULOSKELETAL: Extremities without cyanosis, or edema. NEURO: Alert & Oriented x4 to person, place, time, situation. Moves all ext x4 PSYCH: Appropriate mood and affect. Results - Labs CBC & Chem 7: 08/28/18 04:47 08/28/18 04:47 Laboratory Results - last 24 hr 08/27/18 08/27/18 08/28/18 16:10 21:15 04:47 WBC 4.2 RBC 3.93 L Hgb 12.4 Hct 37.2 MCV 94.5 MCH 31.5 MCHC 33.3 RDW 15.2 Plt Count 177 MPV 8.2 Neut % (Auto) 64.9 Lymph % (Auto) 25.4 Bailey % (Auto) 8.0 Eos % (Auto) 1.4 Baso % (Auto) 0.3 Neut # (Auto) 2.7 Lymph # (Auto) 1.1 Bailey # (Auto) 0.3 Eos # (Auto) 0.1 Baso # (Auto) 0.0 WBC Differential . Differential Comment Auto diff final Sodium Potassium Chloride Carbon Dioxide Anion Gap BUN Creatinine Estimated GFR Random Glucose Calcium Total Bilirubin AST ALT Alkaline Phosphatase Troponin I 0.05 0.06 H Total Protein Albumin 08/28/18 04:47 WBC RBC Hgb Hct MCV MCH MCHC RDW Plt Count MPV Neut % (Auto) Lymph % (Auto) Bailey % (Auto) Eos % (Auto) Baso % (Auto) Neut # (Auto) Lymph # (Auto) Bailey # (Auto) Eos # (Auto) Baso # (Auto) WBC Differential Differential Comment Sodium 145 Potassium 3.2 L D Chloride 105 Carbon Dioxide 30.7 Anion Gap 9 BUN 19 H Creatinine 0.76 Estimated GFR 73 L Random Glucose 76 Calcium 8.1 L D Total Bilirubin 0.6 AST 24 ALT 28 Alkaline Phosphatase 95 Troponin I Total Protein 5.8 L D Albumin 2.5 L Assessment and Plan - Plan 77-year-old female admitted with acute respiratory failure secondary to A. fib with RVR and diastolic dysfunction Acute respiratory failure secondary to A. fib with RVR and diastolic dysfunction : - Appreciate cardiology following. - Patient started on Cardizem in addition to Lopressor - A 2D echo has been ordered. - Continue Lasix 20 mg IV twice daily - Follow I's/O - Smoking cessation instructions given. A fib wit RVR -continue Eliquis. -telemetry. -Lopressor 25 mg PO BID started. Oral Cardizem. -Appreciate project development engineer input HTN Likely exacerbated by pain. -pain control with a bowel regimen. -continue amlodipine. Lopressor added. -Vasotec as needed. Left wrist fracture The pt was supposed to have operative repair on the day of admission -pain control. -PT/ OT. -outpt follow-up with ortho. Chronic pain The pt has had multiple spinal surgeries. -continue Percocet. -PT. Hypokalemia: - Secondary to Lasix. Replace and monitor. PPx: Eliquis Discharge Planning: Anticipate 1-2 more days in the hospital. Physical therapy to evaluate. May need home health.
--- NOTE | 2018-08-28 18:45 | ECG ---
Date Performed: 08/27/2018 Time Performed: 12:35:18 PTAGE: 77 years EKG: ELECTRONIC ATRIAL PACEMAKER POSSIBLE RIGHT VENTRICULAR CONDUCTION DELAY NONSPECIFIC ST & T- WAVE ABNORMALITY ABNORMAL ECG INTERPRETATION BASED ON A DEFAULT AGE OF 40 YEARS PREVIOUS TRACING : 11/18/2016 11.35 DOCTOR: Praful Brown Interpretating Date/Time 08/28/2018 18:44:14
--- NOTE | 2018-08-28 18:56 | ECHRPT ---
Indication: HEART FAILURE CONCLUSIONS The left ventricular systolic function is normal with an estimated ejection fraction in the range of 55-60%. There is a round mass within the right atrium at the connection with the intra-atrial septum, clinic al correlation necessary. [place]u-di-hogy mitral valve regurgitation. There is moderate tricuspid regurgitation. There is estimated moderate pulmonary hypertension present (50 mmHg). There is a moderate pericardial effusion present. No associated right atrial or right ventricular chamber collapse was noted. There was normal respirophasic change in transvalvular flow velocities observed. BP: / HR: Rhythm: MEASUREMENTS (Male / Female) Normal Values Technical Quality: 2D ECHO LV Diastolic Diameter PLAX 4.2 cm 4.2 - 5.9 / 3.9 - 5.3 cm IVS Diastolic Thickness 1.0 cm 0.6 - 1.0 / 0.6 - 0.9 cm LVPW Diastolic Thickness 0.8 cm 0.6 - 1.0 / 0.6 - 0.9 cm LV Relative Wall Thickness 0.4 RV Internal Dim ED PLAX 2.9 cm DOPPLER Mitral E Point Velocity 169.0 cm/s Mitral A Point Velocity 95.2 cm/s Mitral E to A Ratio 1.8 TR Peak Velocity 313.0 cm/s TR Peak Gradient 39.2 mmHg Right Atrial Pressure 10.0 mmHg Pulmonary Artery Systolic Pressu 49.2 mmHg Right Ventricular Systolic Press 49.2 mmHg FINDINGS LEFT VENTRICLE Normal left ventricular size. Wall thickness is normal. The left ventricular systolic function is normal with an estimated ejection fraction in the range of 55-60%. No regional wall motion abnormalities are present. RIGHT VENTRICLE Normal right ventricular size and systolic function. LEFT ATRIUM The left atrial size is normal. RIGHT ATRIUM The right atrial size is normal. ATRIAL SEPTUM Normal atrial septal thickness. There is a round mass within the right atrium at the connection with the intra-atrial septum, clinic al correlation necessary. AORTA The aortic root and proximal ascending aorta are normal in size on limited imaging. MITRAL VALVE Mitral annular calcification is present. [id number] mitral valve regurgitation. No mitral valve stenosis. AORTIC VALVE Trileaflet aortic valve. No aortic valve stenosis or regurgitation. TRICUSPID VALVE Structurally normal tricuspid valve. There is moderate tricuspid regurgitation. There is estimated moderate pulmonary hypertension present (50 mmHg). PULMONARY VALVE Trivial pulmonary valve regurgitation. VESSELS The inferior vena cava is normal in size. PERICARDIUM There is a moderate pericardial effusion present. No associated right atrial or right ventricular chamber collapse was noted. There was normal respirophasic change in transvalvular flow velocities observed. Param Muse DO (Electronically Signed) Final Date:28 August 2018 18:55
[2018-08-28] MEDS: Mirtazapine 15 MG Tablet PO SCH (20:05)
[2018-08-28] MEDS: traZODone 100 MG Tablet PO SCH (21:30)
[2018-08-29 05:54] LABS: Hematocrit 38.2 % (35.0-46.0); Hemoglobin 12.6 gm/dL (11.6-15.3); Mean Corpuscular Hemoglobin 31.6 pg (27.0-34.0); Mean Corpuscular Volume 95.7 fL (80.0-100.0); Mean Platelet Volume 7.8 fL (7.0-11.0); Platelet Count 159 th/mm3 (150-450); Red Cell Distribution Width 15.2 % (11.6-17.2); White Blood Count 4.1 th/mm3 (4.0-11.0)
[2018-08-29 06:18] LABS: Calcium 8.2 mg/dL (8.5-10.1); Carbon Dioxide 31.3 meq/L (21.0-32.0); Potassium 3.8 meq/L (3.5-5.1)
[2018-08-29] MEDS: Polyethylene Glycol 3350 17 GM Packet PO SCH (08:52)
[2018-08-29] MEDS: dilTIAZem 30 MG Tablet PO SCH ×4 (08:53→21:38)
[2018-08-29] MEDS: Metoprolol Tartrate 25 MG Tablet PO SCH ×2 (08:53→21:38)
--- NOTE | 2018-08-29 09:48 | P.PNCA ---
Subjective Interval history: pt denies chest pain Medications and Allergies Active Medications: Active Medications Acetaminophen (Tylenol) 650 mg PO Q4H PRN PRN Reason: Temp > 100.4, pain 1-2 Amlodipine Besylate (Norvasc) 10 mg PO DAILY [facility] Last Admin: 08/28/18 10:04 Dose: Not Given Apixaban (Eliquis) 5 mg PO BID [facility] Last Admin: 08/29/18 08:53 Dose: 5 mg Atorvastatin Calcium (Lipitor) 20 mg PO HS [facility] Last Admin: 08/28/18 20:04 Dose: 20 mg Baclofen (Lioresal) 10 mg PO TID PRN PRN Reason: MUSCLE SPASM Last Admin: 08/28/18 21:30 Dose: 10 mg Clonidine HCl (Catapres) 0.1 mg PO Q6H PRN PRN Reason: SBP> OR = 180, DBP> OR = 100 Diltiazem HCl (Cardizem) 30 mg PO QID [facility] Last Admin: 08/29/18 08:53 Dose: 30 mg Furosemide (Lasix Inj) 20 mg IV.PUSH BID@0900,1800 [facility] Last Admin: 08/29/18 08:55 Dose: 20 mg Metoprolol Tartrate (Lopressor) 25 mg PO BID [facility] Last Admin: 08/29/18 08:53 Dose: 25 mg Mirtazapine (Remeron) 15 mg PO HS [facility] Last Admin: 08/28/18 20:05 Dose: 15 mg Oxycodone/Acetaminophen (Percocet 7.5/325 Mg) 1 tab PO Q4H PRN PRN Reason: pain 3-10 Last Admin: 08/29/18 01:58 Dose: 1 tab Pantoprazole Sodium (Protonix) 40 mg PO DAILY [facility] Last Admin: 08/29/18 08:53 Dose: 40 mg Polyethylene Glycol (Miralax) 17 gm PO DAILY [facility] Last Admin: 08/29/18 08:52 Dose: 17 gm Senna/Docusate Sodium (Tammy-Colace) 1 tab PO BID PRN PRN Reason: Constipation Trazodone HCl (Desyrel) 100 mg PO HS [facility] Last Admin: 08/28/18 21:30 Dose: 100 mg Allergies Allergy/AdvReac Type Severity Reaction Status Date / Time adhesive Allergy Severe RASH Verified 08/22/18 17:44 Home Medications Medication Instructions Recorded Confirmed Type amlodipine 10 mg PO DAILY 08/27/18 08/27/18 History apixaban [Eliquis] 5 mg PO BID 08/27/18 08/27/18 History atorvastatin 20 mg PO HS 08/27/18 08/27/18 History baclofen 10 mg PO TID 08/27/18 08/27/18 History ibandronate 150 mg PO QMONTH 08/27/18 08/27/18 History mirtazapine 15 mg PO HS 08/27/18 08/27/18 History oxycodone-acetaminophen 1 tab PO Q4-6H PRN 08/27/18 08/27/18 History pantoprazole 40 mg PO DAILY 08/27/18 08/27/18 History polyethylene glycol 3350 17 g PO DAILY 08/27/18 08/27/18 History sennosides-docusate sodium 1 tab PO BID PRN 08/27/18 08/27/18 History [Senexon-S] trazodone 100 mg PO HS 08/27/18 08/27/18 History Physical Exam Vital signs: Vital Signs 08/28/18 10:00 08/28/18 11:00 08/28/18 12:00 Temperature 98.1 F Pulse Rate 98 H 84 98 H Respiratory Rate 24 Blood Pressure 118/80 Pulse Oximetry 95 08/28/18 13:00 08/28/18 14:00 08/28/18 15:00 Temperature 97.8 F Pulse Rate 102 H 96 H 75 Respiratory Rate 22 Blood Pressure 117/81 Pulse Oximetry 95 08/28/18 15:42 08/28/18 16:00 08/28/18 17:00 Temperature Pulse Rate 109 H 144 H Respiratory Rate Blood Pressure Pulse Oximetry 97 08/28/18 18:00 08/28/18 19:00 08/28/18 20:00 Temperature 98.1 F Pulse Rate 123 H 123 H 90 Respiratory Rate 20 Blood Pressure 115/82 Pulse Oximetry 93 L 93 L 08/28/18 21:00 08/28/18 22:00 08/28/18 23:00 Temperature 98.5 F Pulse Rate 112 H 138 H 71 Respiratory Rate 20 Blood Pressure 104/60 Pulse Oximetry 94 L 08/29/18 00:00 08/29/18 01:00 08/29/18 02:00 Temperature Pulse Rate 68 84 108 H Respiratory Rate Blood Pressure Pulse Oximetry 08/29/18 03:00 08/29/18 04:00 08/29/18 05:00 Temperature 98.2 F Pulse Rate 82 68 94 H Respiratory Rate 20 Blood Pressure 122/76 Pulse Oximetry 95 08/29/18 06:00 08/29/18 07:00 08/29/18 08:37 Temperature 97.7 F Pulse Rate 92 H 61 Respiratory Rate 18 Blood Pressure 138/84 Pulse Oximetry 94 L 93 L Intake & Output 08/28/18 08/29/18 08/29/18 18:59 06:59 18:59 Intake Total 1460 / 1460 1180 / 1180 Output Total 2300 / 2300 1999 Balance -840 / -840 -820 / -820 Weight 47.5 kg Intake: Oral 1460 / 1460 1180 / 1180 Output: Urine 2300 / 2300 1999 Other: Date of Last Bowel Movement 08/27/18 08/29/18 08/28/18 # Bowel Movements 1 - Constitutional no acute distress - Routine HEENT Exam Head: Present: normocephalic, atraumatic Eye: Present: PERRL - Routine Neck Exam Present: supple. Absent: JVD, carotid bruit - Routine Respiratory Exam Present: CTA bilaterally - Routine Cardiovascular Exam Present: S1, S2, irregularly irregular. Absent: RRR, S3 - Routine Abdominal Exam Present: soft, normoactive bowel sounds. Absent: firm, rigid - Routine Extremities Exam Absent: cyanosis, clubbing, edema Results 08/29/18 05:30 08/29/18 05:30 Cardiac Enzymes 08/27/18 08/27/18 08/27/18 Range/Units 12:40 12:40 16:10 AST 59 H (15-37) U/L Troponin I 0.05 0.05 (0.02-0.05) ng/mL B-Natriuretic Peptide 444 H (0-100) pg/mL 08/27/18 08/28/18 Range/Units 21:15 04:47 AST 24 (15-37) U/L Troponin I 0.06 H (0.02-0.05) ng/mL B-Natriuretic Peptide (0-100) pg/mL Coagulation 08/27/18 08/27/18 Range/Units 12:40 14:13 PT 12.4 H (9.8-11.6) sec APTT 29.0 (24.3-30.1) sec B-Natriuretic Peptide 444 H (0-100) pg/mL CBC 08/27/18 08/28/18 08/29/18 Range/Units 12:40 04:47 05:30 WBC 5.1 4.2 4.1 (4.0-11.0) th/mm3 RBC 4.39 3.93 L 4.00 (4.00-5.30) mil/mm3 Hgb 13.9 12.4 12.6 (11.6-15.3) gm/dL Hct 42.3 37.2 38.2 (35.0-46.0) % Plt Count 185 177 159 (150-450) th/mm3 Neut # (Auto) 3.8 2.7 (1.8-7.7) th/mm3 Lymph # (Auto) 0.8 L 1.1 (1.0-4.8) th/mm3 [place] # (Auto) 0.4 0.3 (0.0-0.9) th/mm3 Eos # (Auto) 0.0 0.1 (0.0-0.4) th/mm3 Baso # (Auto) 0.0 0.0 (0.0-0.2) th/mm3 Comprehensive Metabolic Panel 08/27/18 08/28/18 08/29/18 Range/Units 12:40 04:47 05:30 Sodium 139 145 144 (136-145) meq/L Potassium 5.6 H 3.2 L D 3.8 (3.5-5.1) meq/L Chloride 106 105 103 (98-107) meq/L Carbon Dioxide 25.5 30.7 31.3 (21.0-32.0) meq/L BUN 23 H 19 H 19 H (7-18) mg/dL Creatinine 0.84 0.76 0.81 (0.50-1.00) mg/dL Calcium 9.3 8.1 L D 8.2 L (8.5-10.1) mg/dL AST 59 H 24 (15-37) U/L ALT 38 28 (10-53) U/L Alkaline Phosphatase 109 95 (45-117) U/L Total Protein 7.2 5.8 L D (6.4-8.2) g/dL Albumin 3.0 L 2.5 L (3.4-5.0) g/dL Intake and Output 08/28/18 08/29/18 08/29/18 22:59 06:59 14:59 Intake Total 1460 / 1460 1180 / 1180 Output Total 2300 / 2300 1999 Balance -840 / -840 -820 / -820 Intake: Oral 1460 / 1460 1180 / 1180 Output: Urine 2300 / 2300 1999 Other: Date of Last Bowel Movement 08/27/18 08/29/18 08/28/18 # Bowel Movements 1 Weight 47.5 kg - Imaging and Cardiology Imaging: Impressions Chest X-Ray 08/27/18 12:25 CONCLUSION: 1. There is atelectasis involving the medial left lower lung. Otherwise, the rest the lungs are grossly clear.. 2. Moderate diffuse cardiomegaly. Assessment and Plan - Plan pt is stable cardiacwise. HR is improving. continue Eliquis, Echo is normal except for Moderate PHTN. Conservative management. I will follow
[2018-08-29] MEDS: amLODIPine 10 MG Tablet PO SCH (11:58)
--- NOTE | 2018-08-29 14:30 | P.PNIM ---
Subjective Interval history: Patient reports she is feeling slightly better. Heart rate goes up with minimal activities. Physical Exam Vital signs: Vital Signs 08/28/18 15:00 08/28/18 15:42 08/28/18 16:00 Temperature 97.8 F Pulse Rate 75 109 H Respiratory Rate 22 Blood Pressure 117/81 Pulse Oximetry 95 97 08/28/18 17:00 08/28/18 18:00 08/28/18 19:00 Temperature 98.1 F Pulse Rate 144 H 123 H 123 H Respiratory Rate 20 Blood Pressure 115/82 Pulse Oximetry 93 L 08/28/18 20:00 08/28/18 21:00 08/28/18 22:00 Temperature Pulse Rate 90 112 H 138 H Respiratory Rate Blood Pressure Pulse Oximetry 93 L 08/28/18 23:00 08/29/18 00:00 08/29/18 01:00 Temperature 98.5 F Pulse Rate 71 68 84 Respiratory Rate 20 Blood Pressure 104/60 Pulse Oximetry 94 L 08/29/18 02:00 08/29/18 03:00 08/29/18 04:00 Temperature 98.2 F Pulse Rate 108 H 82 68 Respiratory Rate 20 Blood Pressure 122/76 Pulse Oximetry 95 08/29/18 05:00 08/29/18 06:00 08/29/18 07:00 Temperature 97.7 F Pulse Rate 94 H 92 H 71 Respiratory Rate 18 Blood Pressure 138/84 Pulse Oximetry 94 L 08/29/18 08:00 08/29/18 08:37 08/29/18 09:00 Temperature Pulse Rate 80 110 H Respiratory Rate Blood Pressure Pulse Oximetry 93 L 08/29/18 10:00 08/29/18 11:00 08/29/18 12:00 Temperature 97.9 F Pulse Rate 148 H 103 H 130 H Respiratory Rate 22 Blood Pressure 103/75 Pulse Oximetry 97 08/29/18 13:00 Temperature Pulse Rate 106 H Respiratory Rate Blood Pressure Pulse Oximetry Intake & Output 08/28/18 08/29/18 08/29/18 18:59 06:59 18:59 Intake Total 1460 / 1460 1180 / 1180 Output Total 2300 / 2300 1999 Balance -840 / -840 -820 / -820 Weight 47.5 kg Intake: Oral 1460 / 1460 1180 / 1180 Output: Urine 2300 / 2300 1999 Other: Date of Last Bowel Movement 08/27/18 08/29/18 08/28/18 # Bowel Movements 1 Narrative: GENERAL: This is a well-nourished, well-developed patient, in no apparent distress. CARDIOVASCULAR: Normal rate but irregular rhythm without murmurs, gallops, or rubs. RESPIRATORY: Good respiratory efforts. Breath sounds equal and clear to auscultation bilaterally. GASTROINTESTINAL: Abdomen soft, non-tender, non-distended. Normal active bowel sounds MUSCULOSKELETAL: Extremities without cyanosis, or edema. NEURO: Alert & Oriented x4 to person, place, time, situation. Generalized weakness. PSYCH: Appropriate mood and affect. Results - Labs CBC & Chem 7: 08/29/18 05:30 08/29/18 05:30 Laboratory Results - last 24 hr 08/29/18 08/29/18 05:30 05:30 WBC 4.1 RBC 4.00 Hgb 12.6 Hct 38.2 MCV 95.7 MCH 31.6 MCHC 33.0 RDW 15.2 Plt Count 159 MPV 7.8 Sodium 144 Potassium 3.8 Chloride 103 Carbon Dioxide 31.3 Anion Gap 10 BUN 19 H Creatinine 0.81 Estimated GFR 68 L Random Glucose 85 Calcium 8.2 L Assessment and Plan - Plan 77-year-old female admitted with acute respiratory failure secondary to A. fib with RVR and diastolic dysfunction Acute respiratory failure secondary to A. fib with RVR and diastolic dysfunction : - Appreciate cardiology following. - Patient started on Cardizem in addition to Lopressor - A 2D echo has been done and reports some tricuspid and mitral valve regurgitation, moderate pulmonary hypertension. There is also mention of a mass within the right atrium. Will discuss with cardiology. - Continue Lasix 20 mg IV twice daily for 1 more day with plan to transition to oral Lasix - Follow I's/O - Smoking cessation instructions given. The left ventricular systolic function is normal with an estimated ejection fraction in the range of 55-60%. A fib wit RVR -continue Eliquis. -telemetry. -Lopressor 25 mg PO BID started. Oral Cardizem. 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 -continue amlodipine. Lopressor added. -Vasotec as needed. Left wrist fracture The pt was supposed to have operative repair on the day of admission -pain control. -PT/ OT. -outpt follow-up with ortho. Chronic pain The pt has had multiple spinal surgeries. -continue Percocet. -PT. Hypokalemia: - Secondary to Lasix. Replace and monitor. PPx: Josh Discharge Planning: Anticipate discharge to SNF tomorrow.
[2018-08-29] MEDS: traZODone 100 MG Tablet PO SCH (21:38)
[2018-08-29] MEDS: Mirtazapine 15 MG Tablet PO SCH (21:41)
[2018-08-30 05:59] LABS: Calcium 8.5 mg/dL (8.5-10.1); Carbon Dioxide 34.9 meq/L (21.0-32.0); Potassium 4.1 meq/L (3.5-5.1)
[2018-08-30] MEDS: amLODIPine 10 MG Tablet PO SCH (08:41)
[2018-08-30] MEDS: Metoprolol Tartrate 25 MG Tablet PO SCH ×2 (08:42→20:25)
[2018-08-30] MEDS: dilTIAZem 30 MG Tablet PO SCH ×2 (08:42→13:05)
[2018-08-30] MEDS: Polyethylene Glycol 3350 17 GM Packet PO SCH (08:43)
--- NOTE | 2018-08-30 11:20 | P.PNCA ---
Subjective Interval history: pt denies chest pain and SOB Medications and Allergies Active Medications: Active Medications Acetaminophen (Tylenol) 650 mg PO Q4H PRN PRN Reason: Temp > 100.4, pain 1-2 Amlodipine Besylate (Norvasc) 10 mg PO DAILY [facility] Last Admin: 08/30/18 08:41 Dose: 10 mg Apixaban (Eliquis) 5 mg PO BID [facility] Last Admin: 08/30/18 08:42 Dose: 5 mg Atorvastatin Calcium (Lipitor) 20 mg PO HS [facility] Last Admin: 08/29/18 21:38 Dose: 20 mg Clonidine HCl (Catapres) 0.1 mg PO Q6H PRN PRN Reason: SBP> OR = 180, DBP> OR = 100 Diltiazem HCl (Cardizem) 30 mg PO QID [facility] Last Admin: 08/30/18 08:42 Dose: 30 mg Furosemide (Lasix Inj) 20 mg IV.PUSH BID@0900,1800 [facility] Last Admin: 08/30/18 08:45 Dose: 20 mg Metoprolol Tartrate (Lopressor) 25 mg PO BID [facility] Last Admin: 08/30/18 08:42 Dose: 25 mg Mirtazapine (Remeron) 15 mg PO HS [facility] Last Admin: 08/29/18 21:41 Dose: 15 mg Oxycodone/Acetaminophen (Percocet 7.5/325 Mg) 1 tab PO Q4H PRN PRN Reason: pain 3-10 Last Admin: 08/30/18 08:42 Dose: 1 tab Pantoprazole Sodium (Protonix) 40 mg PO DAILY [facility] Last Admin: 08/30/18 08:42 Dose: 40 mg Polyethylene Glycol (Miralax) 17 gm PO DAILY [facility] Last Admin: 08/30/18 08:43 Dose: Not Given Senna/Docusate Sodium (Tammy-Colace) 1 tab PO BID PRN PRN Reason: Constipation Trazodone HCl (Desyrel) 100 mg PO HS [facility] Last Admin: 08/29/18 21:38 Dose: 100 mg Allergies Allergy/AdvReac Type Severity Reaction Status Date / Time adhesive Allergy Severe RASH Verified 08/22/18 17:44 Home Medications Medication Instructions Recorded Confirmed Type amlodipine 10 mg PO DAILY 08/27/18 08/27/18 History apixaban [Eliquis] 5 mg PO BID 08/27/18 08/27/18 History atorvastatin 20 mg PO HS 08/27/18 08/27/18 History baclofen 10 mg PO TID 08/27/18 08/27/18 History ibandronate 150 mg PO QMONTH 08/27/18 08/27/18 History mirtazapine 15 mg PO HS 08/27/18 08/27/18 History oxycodone-acetaminophen 1 tab PO Q4-6H PRN 08/27/18 08/27/18 History pantoprazole 40 mg PO DAILY 08/27/18 08/27/18 History polyethylene glycol 3350 17 g PO DAILY 08/27/18 08/27/18 History sennosides-docusate sodium 1 tab PO BID PRN 08/27/18 08/27/18 History [Senexon-S] trazodone 100 mg PO HS 08/27/18 08/27/18 History Physical Exam Vital signs: Vital Signs 08/29/18 12:00 08/29/18 13:00 08/29/18 14:00 Temperature Pulse Rate 130 H 106 H 108 H Respiratory Rate Blood Pressure Pulse Oximetry 08/29/18 15:00 08/29/18 16:00 08/29/18 17:00 Temperature 98.1 F Pulse Rate 90 82 102 H Respiratory Rate 22 Blood Pressure 105/66 Pulse Oximetry 94 L 08/29/18 18:00 08/29/18 19:00 08/29/18 20:00 Temperature 98 F Pulse Rate 86 63 63 Respiratory Rate 22 Blood Pressure 102/65 Pulse Oximetry 97 08/29/18 20:21 08/29/18 21:00 08/29/18 22:00 Temperature Pulse Rate 99 H 72 Respiratory Rate Blood Pressure Pulse Oximetry 96 08/29/18 23:00 08/30/18 00:00 08/30/18 01:00 Temperature 97.4 F L Pulse Rate 73 91 H 91 H Respiratory Rate 20 Blood Pressure 106/72 Pulse Oximetry 96 08/30/18 02:00 08/30/18 03:00 08/30/18 04:00 Temperature 98 F Pulse Rate 91 H 81 80 Respiratory Rate 20 Blood Pressure 136/83 Pulse Oximetry 96 08/30/18 05:00 08/30/18 05:28 08/30/18 07:00 Temperature 98.2 F Pulse Rate 77 88 101 H Respiratory Rate 20 Blood Pressure 120/91 H Pulse Oximetry 97 08/30/18 08:00 Temperature Pulse Rate Respiratory Rate Blood Pressure Pulse Oximetry 97 Intake & Output 08/29/18 08/30/18 08/30/18 18:59 06:59 18:59 Intake Total 1200 / 1200 400 / 400 Output Total 1300 / 1300 1900 / 1900 Balance -100 / -100 -1500 / -1500 Weight 46.4 kg Intake: Oral 1200 / 1200 400 / 400 Output: Urine 1300 / 1300 1900 / 1900 Other: # Urine Diapers 1 Date of Last Bowel Movement 08/28/18 08/28/18 08/28/18 - Constitutional no acute distress - Routine HEENT Exam Head: Present: normocephalic, atraumatic - Routine Neck Exam Present: supple. Absent: JVD, carotid bruit - Routine Respiratory Exam Present: CTA bilaterally - Routine Cardiovascular Exam Present: RRR, S1, S2. Absent: murmur, S3 - Routine Abdominal Exam Present: soft. Absent: tenderness, distended, firm, rigid - Routine Extremities Exam Absent: cyanosis, clubbing, edema - Routine Skin Exam Present: warm - Routine Neurological Exam Present: alert, oriented X3 Results 08/29/18 05:30 08/30/18 05:13 CBC 08/29/18 Range/Units 05:30 WBC 4.1 (4.0-11.0) th/mm3 RBC 4.00 (4.00-5.30) mil/mm3 Hgb 12.6 (11.6-15.3) gm/dL Hct 38.2 (35.0-46.0) % Plt Count 159 (150-450) th/mm3 Comprehensive Metabolic Panel 08/29/18 08/30/18 Range/Units 05:30 05:13 Sodium 144 141 (136-145) meq/L Potassium 3.8 4.1 (3.5-5.1) meq/L Chloride 103 101 (98-107) meq/L Carbon Dioxide 31.3 34.9 H (21.0-32.0) meq/L BUN 19 H 25 H (7-18) mg/dL Creatinine 0.81 0.88 (0.50-1.00) mg/dL Calcium 8.2 L 8.5 (8.5-10.1) mg/dL Intake and Output 08/29/18 08/30/18 08/30/18 22:59 06:59 14:59 Intake Total 1200 / 1200 400 / 400 Output Total 1300 / 1300 1900 / 1900 Balance -100 / -100 -1500 / -1500 Intake: Oral 1200 / 1200 400 / 400 Output: Urine 1300 / 1300 1900 / 1900 Other: # Urine Diapers 1 Date of Last Bowel Movement 08/28/18 08/28/18 08/28/18 Weight 46.4 kg Assessment and Plan - Plan pt is stable cardiacwise. Geovani in SR. continue Eliquis, Echo reviewed, NO mass in the right atrium seen, pt has small PCE without hemodynamic compromise. I will follow as outpt. Thank you
--- NOTE | 2018-08-30 13:56 | P.DS ---
Date of admission: 08/27/18 16:29 Primary care physician: Javi Morales MD Brief History from admission: The patient is a 77-year-old female with past medical history of atrial fibrillation who is presenting to the hospital with shortness of breath and leg swelling. The patient states that over the past 2 days she has noticed leg swelling. She says her left leg is more swollen than her right leg. She says she experiences pain in both of her lower extremities, a little more pain in her left leg than her right. She states that she has noticed more shortness of breath over the past 2 days. She says she never is short of breath. She does endorse left-sided chest wall tenderness. She rates the pain as an 8 out of 10 in severity. She says the pain is worse when walking and when coughing. The patient had a fall last where she has a fracture in her left wrist. She is currently in a splint and was supposed to have surgical repair this morning but was referred to the hospital in the orthopedic office because of her respiratory status and leg swelling. 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 She says she is able to lie flat on her back without getting short of breath. She does not wake up in the middle of the night gasping for air. The patient is a chronic everyday smoker. DS: Medications - Discharge Medications Prescriptions: diltiazem HCl [Cardizem CD] 120 mg PO DAILY #30 cap furosemide [Lasix] 20 mg PO DAILY #30 tab metoprolol tartrate 25 mg PO BID #60 tab oxycodone-acetaminophen 1 tab PO Q4-6H PRN #12 tab PRN Reason: Pain DS: Summary - Time Spent with Patient Total time spent providing and/or coordinating discharge services: Exam Vital signs: Vital Signs 08/29/18 14:00 08/29/18 15:00 08/29/18 16:00 Temperature 98.1 F Pulse Rate 108 H 90 82 Respiratory Rate 22 Blood Pressure 105/66 Pulse Oximetry 94 L 08/29/18 17:00 08/29/18 18:00 08/29/18 19:00 Temperature 98 F Pulse Rate 102 H 86 63 Respiratory Rate 22 Blood Pressure 102/65 Pulse Oximetry 97 08/29/18 20:00 08/29/18 20:21 08/29/18 21:00 Temperature Pulse Rate 63 99 H Respiratory Rate Blood Pressure Pulse Oximetry 96 08/29/18 22:00 08/29/18 23:00 08/30/18 00:00 Temperature 97.4 F L Pulse Rate 72 73 91 H Respiratory Rate 20 Blood Pressure 106/72 Pulse Oximetry 96 08/30/18 01:00 08/30/18 02:00 08/30/18 03:00 Temperature 98 F Pulse Rate 91 H 91 H 81 Respiratory Rate 20 Blood Pressure 136/83 Pulse Oximetry 96 08/30/18 04:00 08/30/18 05:00 08/30/18 05:28 Temperature Pulse Rate 80 77 88 Respiratory Rate Blood Pressure Pulse Oximetry 08/30/18 07:00 08/30/18 08:00 08/30/18 09:15 Temperature 98.2 F Pulse Rate 101 H Respiratory Rate 20 18 Blood Pressure 120/91 H Pulse Oximetry 97 97 08/30/18 11:00 Temperature 98.1 F Pulse Rate 92 H Respiratory Rate 18 Blood Pressure 100/69 Pulse Oximetry 94 L Intake & Output 08/29/18 08/30/18 08/30/18 18:59 06:59 18:59 Intake Total 1200 / 1200 400 / 400 Output Total 1300 / 1300 1900 / 1900 Balance -100 / -100 -1500 / -1500 Weight 46.4 kg Intake: Oral 1200 / 1200 400 / 400 Output: Urine 1300 / 1300 1900 / 1900 Other: # Urine Diapers 1 Date of Last Bowel Movement 08/28/18 08/28/18 08/28/18 Results Labs on day of discharge: Labs from last 24 hours 08/30/18 05:13 Sodium 141 Potassium 4.1 Chloride 101 Carbon Dioxide 34.9 H Anion Gap 5 BUN 25 H Creatinine 0.88 Estimated GFR 62 L Random Glucose 84 Calcium 8.5 - Impressions ITS Impressions Chest X-Ray 08/27/18 12:25 CONCLUSION: 1. There is atelectasis involving the medial left lower lung. Otherwise, the rest the lungs are grossly clear.. 2. Moderate diffuse cardiomegaly. Discharge Plan - Discharge Disposition Patient Disposition: 03 Discharge to SNF - Discharge Condition Condition: Good - Discharge Order Discharge Orders: Discharge Order (Routine); Ordered 08/30/18 Ordered By: Mike Yost - Discharge Details Discharge Comment: FOllow up outpatient with Orthopedics and Cardiology Dr. Stafford. - Physicians Team Primary Care Provider: Javi Morales Attending Provider: Mike Yost Other Providers: [employer]Insurance ; Gilberto Stafford MD ; [facility],[place]
--- NOTE | 2018-08-30 16:15 | P.PNIM ---
Subjective Interval history: Patient was set for discharge to SNF today after she was seen earlier today without any problems. However her heart rate increased and sustained in the 120s. Physical Exam Vital signs: Vital Signs 08/29/18 17:00 08/29/18 18:00 08/29/18 19:00 Temperature 98 F Pulse Rate 102 H 86 63 Respiratory Rate 22 Blood Pressure 102/65 Pulse Oximetry 97 08/29/18 20:00 08/29/18 20:21 08/29/18 21:00 Temperature Pulse Rate 63 99 H Respiratory Rate Blood Pressure Pulse Oximetry 96 08/29/18 22:00 08/29/18 23:00 08/30/18 00:00 Temperature 97.4 F L Pulse Rate 72 73 91 H Respiratory Rate 20 Blood Pressure 106/72 Pulse Oximetry 96 08/30/18 01:00 08/30/18 02:00 08/30/18 03:00 Temperature 98 F Pulse Rate 91 H 91 H 81 Respiratory Rate 20 Blood Pressure 136/83 Pulse Oximetry 96 08/30/18 04:00 08/30/18 05:00 08/30/18 05:28 Temperature Pulse Rate 80 77 88 Respiratory Rate Blood Pressure Pulse Oximetry 08/30/18 07:00 08/30/18 08:00 08/30/18 09:00 Temperature 98.2 F Pulse Rate 124 H 84 110 H Respiratory Rate 20 Blood Pressure 120/91 H Pulse Oximetry 97 97 08/30/18 09:15 08/30/18 10:00 08/30/18 11:00 Temperature 98.1 F Pulse Rate 108 H 73 Respiratory Rate 18 18 Blood Pressure 100/69 Pulse Oximetry 94 L 08/30/18 12:00 08/30/18 13:00 08/30/18 13:40 Temperature Pulse Rate 92 H 94 H Respiratory Rate 18 Blood Pressure Pulse Oximetry 08/30/18 14:00 08/30/18 15:00 Temperature Pulse Rate 99 H Respiratory Rate 18 Blood Pressure Pulse Oximetry Intake & Output 08/29/18 08/30/18 08/30/18 18:59 06:59 18:59 Intake Total 1200 / 1200 400 / 400 Output Total 1300 / 1300 1900 / 1900 Balance -100 / -100 -1500 / -1500 Weight 46.4 kg Intake: Oral 1200 / 1200 400 / 400 Output: Urine 1300 / 1300 1900 / 1900 Other: # Urine Diapers 1 Date of Last Bowel Movement 08/28/18 08/28/18 08/28/18 Narrative: GENERAL: This is a well-nourished, well-developed patient, in no apparent distress. CARDIOVASCULAR: Per earlier exam, normal rate but irregular rhythm without murmurs, gallops, or rubs. RESPIRATORY: Good respiratory efforts. Breath sounds equal and clear to auscultation bilaterally. GASTROINTESTINAL: Abdomen soft, non-tender, non-distended. Normal active bowel sounds MUSCULOSKELETAL: Extremities without cyanosis, or edema. NEURO: Alert & Oriented x4 to person, place, time, situation. Generalized weakness. PSYCH: Appropriate mood and affect. Results - Labs CBC & Chem 7: 08/29/18 05:30 08/30/18 05:13 Laboratory Results - last 24 hr 08/30/18 05:13 Sodium 141 Potassium 4.1 Chloride 101 Carbon Dioxide 34.9 H Anion Gap 5 BUN 25 H Creatinine 0.88 Estimated GFR 62 L Random Glucose 84 Calcium 8.5 Assessment and Plan - Plan 77-year-old female admitted with acute respiratory failure secondary to A. fib with RVR and diastolic dysfunction Acute respiratory failure secondary to A. fib with RVR and diastolic dysfunction : - Appreciate cardiology following. - Patient started on Cardizem in addition to Lopressor - A 2D echo has been done and reports some tricuspid and mitral valve regurgitation, moderate pulmonary hypertension. There is also mention of a mass within the right atrium. I discussed this with daycare manager Dr. Stafford who reviewed the echocardiogram. He did not identify a mass and recommend outpatient follow-up with him for repeat echocardiogram. -Transition to oral Lasix. - Follow I's/O - Smoking cessation instructions given. The left ventricular systolic function is normal with an estimated ejection fraction in the range of 55-60%. A fib wit RVR -continue Eliquis. -telemetry. -Lopressor 25 mg PO BID started. Oral Cardizem. -Appreciate daycare manager input HTN -pain control with a bowel regimen. -continue amlodipine. Lopressor added. -Vasotec as needed. Left wrist fracture The pt was supposed to have operative repair on the day of admission -pain control. -PT/ OT. -outpt follow-up with ortho. Chronic pain The pt has had multiple spinal surgeries. -continue Percocet. -PT. Hypokalemia: - Secondary to Lasix. Replace and monitor. PPx: Eliquis
[2018-08-30] MEDS: dilTIAZem 60 MG Tablet PO SCH ×2 (17:16→20:25)
[2018-08-30] MEDS: traZODone 100 MG Tablet PO SCH (20:25)
[2018-08-30] MEDS: Mirtazapine 15 MG Tablet PO SCH (20:26)
[2018-08-31] MEDS: Polyethylene Glycol 3350 17 GM Packet PO SCH (08:23)
[2018-08-31] MEDS: dilTIAZem 60 MG Tablet PO SCH (08:24)
[2018-08-31] MEDS: amLODIPine 10 MG Tablet PO SCH (08:24)
[2018-08-31] MEDS: Metoprolol Tartrate 25 MG Tablet PO SCH (08:24)
--- NOTE | 2018-08-31 09:36 | P.DS ---
Date of admission: 08/27/18 16:29 Primary care physician: Javi Morales MD Brief History from admission: HPI from the admitting physician: The patient is a 77-year-old female with past medical history of atrial fibrillation who is presenting to the hospital with shortness of breath and leg swelling. The patient states that over the past 2 days she has noticed leg swelling. She says her left leg is more swollen than her right leg. She says she experiences pain in both of her lower extremities, a little more pain in her left leg than her right. She states that she has noticed more shortness of breath over the past 2 days. She says she never is short of breath. She does endorse left-sided chest wall tenderness. She rates the pain as an 8 out of 10 in severity. She says the pain is worse when walking and when coughing. The patient had a fall last where she has a fracture in her left wrist. She is currently in a splint and was supposed to have surgical repair this morning but was referred to the hospital in the orthopedic office because of her respiratory status and leg swelling. The patient states that she follows with a parts finisher regularly. She says she is able to lie flat on her back without getting short of breath. She does not wake up in the middle of the night gasping for air. The patient is a chronic everyday smoker. Patient update on day of discharge: Patient reports she is feeling better today. Heart rate better controlled today. She is eager to transition to rehab. DS: Medications - Discharge Medications Prescriptions: diltiazem HCl [Cardizem CD] 240 mg PO DAILY #30 cap furosemide [Lasix] 20 mg PO DAILY #30 tab metoprolol tartrate 25 mg PO BID #60 tab oxycodone-acetaminophen 1 tab PO Q4-6H PRN #12 tab PRN Reason: Pain DS: Summary Hospital Course: 77-year-old female admitted with acute respiratory failure secondary to A. fib with RVR and diastolic dysfunction. Evaluation and treatment course detailed below: Acute respiratory failure secondary to A. fib with RVR and diastolic dysfunction : - Appreciate cardiology following. - Patient started on Cardizem in addition to Lopressor - A 2D echo has been done and reports some tricuspid and mitral valve regurgitation, moderate pulmonary hypertension. There is also mention of a mass within the right atrium. I discussed this with parts finisher Dr. Stafford who reviewed the echocardiogram. He did not identify a mass and recommend outpatient follow-up with him for repeat echocardiogram. -Patient was transitioned to oral Lasix - Smoking cessation instructions given. The left ventricular systolic function is normal with an estimated ejection fraction in the range of 55-60%. A fib wit RVR -continue Eliquis. -Lopressor 25 mg PO BID started. Oral Cardizem dose titrated up. HTN -continue amlodipine. Lopressor added. Left wrist nondisplaced fracture -pain control. -PT/ OT. -outpt follow-up with orthopedics. Chronic pain The pt has had multiple spinal surgeries. -continue Percocet. -PT. Hypokalemia: - Secondary to Lasix. Resolved - Time Spent with Patient Total time spent providing and/or coordinating discharge services: Greater than 30 minutes Exam Vital signs: Vital Signs 08/30/18 10:00 08/30/18 11:00 08/30/18 12:00 Temperature 98.1 F Pulse Rate 108 H 73 92 H Respiratory Rate 18 Blood Pressure 100/69 Pulse Oximetry 94 L 08/30/18 13:00 08/30/18 13:40 08/30/18 14:00 Temperature Pulse Rate 94 H 99 H Respiratory Rate 18 Blood Pressure Pulse Oximetry 08/30/18 15:00 08/30/18 16:00 08/30/18 17:00 Temperature 98.0 F Pulse Rate 87 130 H 114 H Respiratory Rate 18 Blood Pressure 111/65 Pulse Oximetry 93 L 08/30/18 18:00 08/30/18 19:00 08/30/18 20:00 Temperature 98.0 F Pulse Rate 116 H 93 H 102 H Respiratory Rate 18 Blood Pressure 105/65 Pulse Oximetry 97 97 08/30/18 21:00 08/30/18 22:00 08/30/18 23:00 Temperature 97.5 F L Pulse Rate 82 73 72 Respiratory Rate 18 Blood Pressure 105/80 Pulse Oximetry 91 L 08/31/18 00:00 08/31/18 01:00 08/31/18 02:00 Temperature Pulse Rate 67 87 64 Respiratory Rate Blood Pressure Pulse Oximetry 08/31/18 03:00 08/31/18 04:00 08/31/18 05:00 Temperature 97.5 F L Pulse Rate 97 H 64 96 H Respiratory Rate 18 Blood Pressure 116/18 L Pulse Oximetry 97 08/31/18 06:00 08/31/18 06:11 Temperature Pulse Rate 69 Respiratory Rate 20 Blood Pressure Pulse Oximetry Intake & Output 08/30/18 08/31/18 08/31/18 18:59 06:59 18:59 Intake Total 1200 / 1200 480 / 480 Output Total 1200 / 1200 700 / 700 Balance 0 / 0 -220 / -220 Weight 46.4 kg Intake: Oral 1200 / 1200 480 / 480 Output: Urine 1200 / 1200 700 / 700 Other: Date of Last Bowel Movement 08/30/18 # Bowel Movements 1 Narrative: GENERAL: This is a well-nourished, well-developed patient, in no apparent distress. CARDIOVASCULAR: normal rate but irregular rhythm without murmurs, gallops, or rubs. RESPIRATORY: Good respiratory efforts. Breath sounds equal and clear to auscultation bilaterally. GASTROINTESTINAL: Abdomen soft, non-tender, non-distended. Normal active bowel sounds MUSCULOSKELETAL: Extremities without cyanosis, or edema. NEURO: Alert & Oriented x4 to person, place, time, situation. Generalized weakness. PSYCH: Appropriate mood and affect. Results Procedures completed during hospitalization: None - Impressions ITS Impressions Chest X-Ray 08/27/18 12:25 CONCLUSION: 1. There is atelectasis involving the medial left lower lung. Otherwise, the rest the lungs are grossly clear.. 2. Moderate diffuse cardiomegaly. Discharge Plan - Discharge Disposition Patient Disposition: Discharge to SNF - Discharge Condition Condition: Good - Discharge Order Discharge Orders: Discharge Order (Routine); Ordered 08/31/18 Ordered By: Mike Yost - Discharge Details Discharge Comment: FOllow up outpatient with Orthopedics and Cardiology Dr. Stafford. - Physicians Team Primary Care Provider: Javi Morales Attending Provider: Mike Yost Other Providers: [employer],Insurance ; Gilberto Stafford MD ; [facility] ; [facility],[place]
[2018-08-31] MEDS ORDERED: dilTIAZem CD 240 MG Capsule PO ONE (11:30)
[2018-08-31 11:59] VITALS: RESP 18
[2018-08-31 12:02] VITALS: BP 94/58; TEMP 98; O2SAT 93
[2018-08-31 12:10] VITALS: PULSE 69
== END 2018-08-31 11:42 ==
LOC: NEPE 11:53 → NEDA 11:53 → HCIS 17:24
PROVIDERS: ADMIT Family Medicine; ATTEND Family Medicine

== ENCOUNTER 2018-10-25 10:34 | Inpatient (IN) ==
--- NOTE | 2018-10-25 12:19 | ED ---
HPI General Chief complaint: Altered Mental Status Stated complaint: Medical Time Seen by Provider: 10/25/18 12:08 Source: patient, RN notes reviewed and old records reviewed Mode of arrival: EMS Limitations: no limitations History of Present Illness HPI narrative: 78-year-old female presents to the emergency department via EMS for evaluation of altered mental status, fall today. History is done through nursing and EMS. The patient is a poor historian. Apparently, she has been more confused over the past 4 months, but for the past 4 days she has been much more confused than normal. She has been having a productive cough. Apparently , she fell today. This was an unwitnessed fall. The patient is complaining of bilateral ankle pain according to nursing staff. Patient has past medical history of atrial fibrillation, on Eliquis, hypertension, chronic back pain with spinal stimulator. Apparently, the patient not take any of her medications in 4 days, but did take them today. Unsure if there was any head injury for this fall. Patient is alert to person and place, but not time. Moderate severity. Onset (ago): day(s) (4) Radiation: non-radiation Severity: moderate Pain Consistency: constant Relieving factors: none Exacerbating factors: none Related Data Home Medications Medication Instructions Recorded Confirmed apixaban [Eliquis] 5 mg PO BID 08/27/18 10/25/18 atorvastatin 20 mg PO HS 08/27/18 10/25/18 ibandronate 150 mg PO QMONTH 08/27/18 10/25/18 pantoprazole 40 mg PO DAILY 08/27/18 10/25/18 polyethylene glycol 3350 17 g PO DAILY 08/27/18 10/25/18 sennosides-docusate sodium 1 tab PO BID PRN 08/27/18 10/25/18 [Senexon-S] aspirin [Aspir-Low] 81 mg PO DAILY 09/19/18 10/25/18 baclofen 10 mg PO TID PRN 09/19/18 10/25/18 furosemide [Lasix] 80 mg PO DAILY 09/19/18 10/25/18 metoprolol tartrate 25 mg PO BID 10/25/18 10/25/18 Previous Rx's Medication Instructions Recorded diltiazem HCl [Cardizem CD] 240 mg PO DAILY #30 cap 08/31/18 oxycodone-acetaminophen 1 tab PO Q6H PRN #12 tab 09/01/18 Allergies Allergy/AdvReac Type Severity Reaction Status Date / Time adhesive Allergy Severe RASH Verified 09/19/18 12:28 Review of Systems ROS: all other systems reviewed are negative PMFSH Social History Social History Substance History: No History of Abuse Second Hand Smoke Exposure: No Smoking Status: Former smoker Tobacco Type: Cigarettes How Often Do You Have a Drink Containing Alcohol: Unable to Obtain Recent Travel in [facility] within the Last 8 Weeks: No Recent Out of Country Travel within the Last 8 Weeks: No Immunization History Tetanus Immunization: Unsure Exam Narrative Exam Narrative: GENERAL: Well-nourished, well-developed elderly female patient, afebrile SKIN: Focused skin assessment warm/dry. HEAD: Normocephalic. Atraumatic ENT: Mucosa pink and moist. No erythema or exudates. No uvular edema. No uvular , palatal, or tonsillar deviation. Airway patent. Nasal turbinates appear normal without nasal blood, purulent drainage or septal hematoma. Bilateral tympanic membranes clear without erythema or perforation. EYES: No scleral icterus. No injection or drainage. NECK: Supple, trachea midline. No JVD or lymphadenopathy. CARDIOVASCULAR: Regular rate and rhythm without murmurs, gallops, or rubs. Bilateral radial and pedal pulses are 2+ RESPIRATORY: Breath sounds equal bilaterally. No accessory muscle use. Lung sounds slightly diminished in the bases GASTROINTESTINAL: Abdomen soft, non-tender, nondistended. MUSCULOSKELETAL: No cyanosis, or edema. She has mild edema to bilateral ankles , ecchymosis to left medial ankle BACK: No obvious deformity. No CVA tenderness. Course Initial Documented Vital Signs Temperature 98.4 F 10/25/18 10:55 Pulse Rate 63 10/25/18 10:55 Respiratory Rate 18 10/25/18 10:55 Blood Pressure 143/85 H 10/25/18 10:55 Pulse Oximetry 94 L 10/25/18 10:55 Last Documented Vital Signs Temperature 98 F 10/26/18 12:00 Pulse Rate 102 H 10/26/18 12:00 Respiratory Rate 16 10/26/18 12:00 Blood Pressure 109/63 10/26/18 12:00 Pulse Oximetry 95 10/26/18 12:00 Medical Decision Making MIKY Attestation MIKY supervised visit: Yes Attestation: I, Dr. Rios, have reviewed the advance practice practitioner's documentation and am in agreement, met with the patient face to face, made the diagnosis, and the medical decision making was done by me. *My assessment and Findings: Altered mental status. Bilateral ankle fracture. Electrolyte abnormality. Elevated troponin. MDM Narrative Medical decision making narrative: 78-year-old female presents to the emergency department via EMS for altered mental status. Daughter did arrive. She states over the past 4 days she has been hallucinating, acting strangely. She has been refusing to eat and refusing to take her medications. The following day was unwitnessed. She was unable to stand after the fall. EKG, CBC, CMP, ammonia, CK, troponin, magnesium, lactic acid, PTT, PT/INR, UA, chest x-ray, x- ray of the pelvis, x-ray of the right ankle, x-ray left ankle, CT the brain, CT of the cervical spine ordered and pending. CBC shows no acute abnormality. CMP shows hyperkalemia of 5.2, BUN 25, creatinine 1.13. BNP is 434. Ammonia is 59. CK is 198. Troponin is 0.08. Magnesium is 2.2. Lactic acid is 2.2. PTT is 29.8. PT/INR is 13.9/1.4. UA is negative for acute infection. Chest x-ray shows cardiomegaly with mild interstitial edema, left upper rib fractures as described above without pneumothorax. X-ray of the pelvis shows no acute abnormality. X-ray of the right ankle shows nondisplaced fracture through the medial malleolus and posterior tibial fracture which extends into the tibiotalar joint, oblique minimally displaced fracture of the distal fibular metaphysis. X-ray of the left ankle shows nondisplaced fracture lateral malleolus. CT of the brain is negative. CT of the cervical spine [-]. Patient is given 500 mL Ns. Posterior short leg/sugar tong splints applied to bilateral ankles. Patient will be admitted for altered mental status, bilateral ankle fractures, rib fractures, elevated lactic acid, elevated troponin. Medical Screen Exam Complete: Yes Emergency Medical Condition: Yes Lab Data Result diagrams: 10/26/18 06:42 10/26/18 06:42 Lab Results 10/25/18 10/25/18 10/25/18 Range/Units 11:07 12:00 12:00 WBC 5.0 (4.0-11.0) th/mm3 RBC 4.45 (4.00-5.30) mil/mm3 Hgb 13.1 (11.6-15.3) gm/dL Hct 41.2 (35.0-46.0) % MCV 92.6 (80.0-100.0) fL MCH 29.4 (27.0-34.0) pg MCHC 31.7 L (32.0-36.0) % RDW 16.4 (11.6-17.2) % Plt Count 217 (150-450) th/mm3 MPV 9.0 (7.0-11.0) fL Neut % (Auto) 76.8 H (16.0-70.0) % Lymph % (Auto) 13.7 (9.0-44.0) % [place] % (Auto) 8.4 H (0.0-8.0) % Eos % (Auto) 0.6 (0.0-4.0) % Baso % (Auto) 0.5 (0.0-2.0) % Neut # (Auto) 3.8 (1.8-7.7) th/mm3 Lymph # (Auto) 0.7 L (1.0-4.8) th/mm3 [place] # (Auto) 0.4 (0.0-0.9) th/mm3 Eos # (Auto) 0.0 (0.0-0.4) th/mm3 Baso # (Auto) 0.0 (0.0-0.2) th/mm3 WBC Differential . Differential Comment Auto diff final PT 13.9 H (9.8-11.6) sec INR 1.4 Ratio APTT 29.8 (23.4-31.7) sec Sodium (136-145) meq/L Potassium (3.5-5.1) meq/L Chloride (98-107) meq/L Carbon Dioxide (21.0-32.0) meq/L Anion Gap (5-15) meq/L BUN (7-18) mg/dL Creatinine (0.50-1.00) mg/dL Estimated GFR (>89) mL/min POC Glucose 128 H (68-110) mg/dl Random Glucose (74-106) mg/dL Lactic Acid (0.4-2.0) mmol/L Calcium (8.5-10.1) mg/dL Magnesium (1.5-2.5) mg/dL Total Bilirubin (0.2-1.0) mg/dL AST (15-37) U/L ALT (10-53) U/L Alkaline Phosphatase (45-117) U/L Ammonia (11-32) mcmol/L Total Creatine Kinase (26-192) U/L CK-MB (CK-2) (0.5-3.6) ng/mL CK-MB (CK-2) % (0.0-4.0) % Troponin I (0.02-0.05) ng/mL B-Natriuretic Peptide (0-100) pg/mL Total Protein (6.4-8.2) g/dL Albumin (3.4-5.0) g/dL Vitamin D 25-Hydroxy (30-100) ng/mL Urine Color (Yellw/Straw) Urine Clarity (Clear) Urine pH (5.0-8.5) Ur Specific [place] (1.002-1.035) Urine Protein (Neg-Trace) mg/dL Urine Glucose (UA) (Negative) mg/dL Urine Ketones (Negative) mg/dL Urine Occult Blood (Negative) Urine Nitrate (Negative) Urine Bilirubin (Negative) Urine Urobilinogen (Less than 2) mg/dL Ur Leukocyte Esterase (Negative) Urine RBC (0-3) /hpf Urine WBC (0-5) /hpf Ur Squamous Epith Cells (0-5) /hpf Urine Bacteria (None) /hpf Hyaline Casts (0-3) /lpf Urine Mucus (Occasional) /lpf Micro UA Comment Ur Microscopic Review Urine Culture Comments Urine Opiates Screen (Neg) Acetaminophen (10.0-30.0) mcg/mL Ur Barbiturates Screen (Neg) Ur Amphetamines Screen (Neg) U Benzodiazepines Scrn (Neg) Urine Cocaine Screen (Neg) U Cannabinoids Screen (Neg) Serum Alcohol (0-5) mg/dL 10/25/18 10/25/18 10/25/18 Range/Units 12:00 12:00 12:00 WBC (4.0-11.0) th/mm3 RBC (4.00-5.30) mil/mm3 Hgb (11.6-15.3) gm/dL Hct (35.0-46.0) % MCV (80.0-100.0) fL MCH (27.0-34.0) pg MCHC (32.0-36.0) % RDW (11.6-17.2) % Plt Count (150-450) th/mm3 MPV (7.0-11.0) fL Neut % (Auto) (16.0-70.0) % Lymph % (Auto) (9.0-44.0) % [place] % (Auto) (0.0-8.0) % Eos % (Auto) (0.0-4.0) % Baso % (Auto) (0.0-2.0) % Neut # (Auto) (1.8-7.7) th/mm3 Lymph # (Auto) (1.0-4.8) th/mm3 [place] # (Auto) (0.0-0.9) th/mm3 Eos # (Auto) (0.0-0.4) th/mm3 Baso # (Auto) (0.0-0.2) th/mm3 WBC Differential Differential Comment PT (9.8-11.6) sec INR Ratio APTT (23.4-31.7) sec Sodium 138 (136-145) meq/L Potassium 5.2 H (3.5-5.1) meq/L Chloride 103 (98-107) meq/L Carbon Dioxide 29.6 (21.0-32.0) meq/L Anion Gap 5 (5-15) meq/L BUN 25 H (7-18) mg/dL Creatinine 1.13 H (0.50-1.00) mg/dL Estimated GFR 46 L (>89) mL/min POC Glucose (68-110) mg/dl Random Glucose 121 H (74-106) mg/dL Lactic Acid 2.2 H (0.4-2.0) mmol/L Calcium 8.4 L (8.5-10.1) mg/dL Magnesium 2.2 (1.5-2.5) mg/dL Total Bilirubin 0.8 (0.2-1.0) mg/dL AST 65 H (15-37) U/L ALT 23 (10-53) U/L Alkaline Phosphatase 119 H (45-117) U/L Ammonia (11-32) mcmol/L Total Creatine Kinase 198 H (26-192) U/L CK-MB (CK-2) Less than 1.0 (0.5-3.6) ng/mL CK-MB (CK-2) % 0.5 (0.0-4.0) % Troponin I 0.08 H (0.02-0.05) ng/mL B-Natriuretic Peptide (0-100) pg/mL Total Protein 6.5 (6.4-8.2) g/dL Albumin 2.8 L (3.4-5.0) g/dL Vitamin D 25-Hydroxy (30-100) ng/mL Urine Color (Yellw/Straw) Urine Clarity (Clear) Urine pH (5.0-8.5) Ur Specific [place] (1.002-1.035) Urine Protein (Neg-Trace) mg/dL Urine Glucose (UA) (Negative) mg/dL Urine Ketones (Negative) mg/dL Urine Occult Blood (Negative) Urine Nitrate (Negative) Urine Bilirubin (Negative) Urine Urobilinogen (Less than 2) mg/dL Ur Leukocyte Esterase (Negative) Urine RBC (0-3) /hpf Urine WBC (0-5) /hpf Ur Squamous Epith Cells (0-5) /hpf Urine Bacteria (None) /hpf Hyaline Casts (0-3) /lpf Urine Mucus (Occasional) /lpf Micro UA Comment Ur Microscopic Review Urine Culture Comments Urine Opiates Screen (Neg) Acetaminophen (10.0-30.0) mcg/mL Ur Barbiturates Screen (Neg) Ur Amphetamines Screen (Neg) U Benzodiazepines Scrn (Neg) Urine Cocaine Screen (Neg) U Cannabinoids Screen (Neg) Serum Alcohol (0-5) mg/dL 10/25/18 10/25/18 10/25/18 Range/Units 12:00 12:30 12:30 WBC (4.0-11.0) th/mm3 RBC (4.00-5.30) mil/mm3 Hgb (11.6-15.3) gm/dL Hct (35.0-46.0) % MCV (80.0-100.0) fL MCH (27.0-34.0) pg MCHC (32.0-36.0) % RDW (11.6-17.2) % Plt Count (150-450) th/mm3 MPV (7.0-11.0) fL Neut % (Auto) (16.0-70.0) % Lymph % (Auto) (9.0-44.0) % [place] % (Auto) (0.0-8.0) % Eos % (Auto) (0.0-4.0) % Baso % (Auto) (0.0-2.0) % Neut # (Auto) (1.8-7.7) th/mm3 Lymph # (Auto) (1.0-4.8) th/mm3 [place] # (Auto) (0.0-0.9) th/mm3 Eos # (Auto) (0.0-0.4) th/mm3 Baso # (Auto) (0.0-0.2) th/mm3 WBC Differential Differential Comment PT (9.8-11.6) sec INR Ratio APTT (23.4-31.7) sec Sodium (136-145) meq/L Potassium (3.5-5.1) meq/L Chloride (98-107) meq/L Carbon Dioxide (21.0-32.0) meq/L Anion Gap (5-15) meq/L BUN (7-18) mg/dL Creatinine (0.50-1.00) mg/dL Estimated GFR (>89) mL/min POC Glucose (68-110) mg/dl Random Glucose (74-106) mg/dL Lactic Acid (0.4-2.0) mmol/L Calcium (8.5-10.1) mg/dL Magnesium (1.5-2.5) mg/dL Total Bilirubin (0.2-1.0) mg/dL AST (15-37) U/L ALT (10-53) U/L Alkaline Phosphatase (45-117) U/L Ammonia (11-32) mcmol/L Total Creatine Kinase (26-192) U/L CK-MB (CK-2) (0.5-3.6) ng/mL CK-MB (CK-2) % (0.0-4.0) % Troponin I (0.02-0.05) ng/mL B-Natriuretic Peptide 434 H (0-100) pg/mL Total Protein (6.4-8.2) g/dL Albumin (3.4-5.0) g/dL Vitamin D 25-Hydroxy (30-100) ng/mL Urine Color Yellow (Yellw/Straw) Urine Clarity Clear (Clear) Urine pH 7.0 (5.0-8.5) Ur Specific [place] 1.009 (1.002-1.035) Urine Protein Negative (Neg-Trace) mg/dL Urine Glucose (UA) Negative (Negative) mg/dL Urine Ketones Negative (Negative) mg/dL Urine Occult Blood Negative (Negative) Urine Nitrate Negative (Negative) Urine Bilirubin Negative (Negative) Urine Urobilinogen Less than 2 (Less than 2) mg/dL Ur Leukocyte Esterase Negative (Negative) Urine RBC 1 (0-3) /hpf Urine WBC 1 (0-5) /hpf Ur Squamous Epith Cells 3 (0-5) /hpf Urine Bacteria Rare H (None) /hpf Hyaline Casts 1 (0-3) /lpf Urine Mucus Few H (Occasional) /lpf Micro UA Comment Culture not ind Ur Microscopic Review Not Reportable Urine Culture Comments Culture not ind Urine Opiates Screen Neg (Neg) Acetaminophen (10.0-30.0) mcg/mL Ur Barbiturates Screen Neg (Neg) Ur Amphetamines Screen Neg (Neg) U Benzodiazepines Scrn Neg (Neg) Urine Cocaine Screen Neg (Neg) U Cannabinoids Screen Neg (Neg) Serum Alcohol (0-5) mg/dL 10/25/18 10/25/18 10/25/18 Range/Units 12:45 15:30 15:30 WBC (4.0-11.0) th/mm3 RBC (4.00-5.30) mil/mm3 Hgb (11.6-15.3) gm/dL Hct (35.0-46.0) % MCV (80.0-100.0) fL MCH (27.0-34.0) pg MCHC (32.0-36.0) % RDW (11.6-17.2) % Plt Count (150-450) th/mm3 MPV (7.0-11.0) fL Neut % (Auto) (16.0-70.0) % Lymph % (Auto) (9.0-44.0) % [place] % (Auto) (0.0-8.0) % Eos % (Auto) (0.0-4.0) % Baso % (Auto) (0.0-2.0) % Neut # (Auto) (1.8-7.7) th/mm3 Lymph # (Auto) (1.0-4.8) th/mm3 [place] # (Auto) (0.0-0.9) th/mm3 Eos # (Auto) (0.0-0.4) th/mm3 Baso # (Auto) (0.0-0.2) th/mm3 WBC Differential Differential Comment PT (9.8-11.6) sec INR Ratio APTT (23.4-31.7) sec Sodium (136-145) meq/L Potassium (3.5-5.1) meq/L Chloride (98-107) meq/L Carbon Dioxide (21.0-32.0) meq/L Anion Gap (5-15) meq/L BUN (7-18) mg/dL Creatinine (0.50-1.00) mg/dL Estimated GFR (>89) mL/min POC Glucose (68-110) mg/dl Random Glucose (74-106) mg/dL Lactic Acid 1.0 (0.4-2.0) mmol/L Calcium (8.5-10.1) mg/dL Magnesium (1.5-2.5) mg/dL Total Bilirubin (0.2-1.0) mg/dL AST (15-37) U/L ALT (10-53) U/L Alkaline Phosphatase (45-117) U/L Ammonia 59 H (11-32) mcmol/L Total Creatine Kinase (26-192) U/L CK-MB (CK-2) (0.5-3.6) ng/mL CK-MB (CK-2) % (0.0-4.0) % Troponin I 0.07 H (0.02-0.05) ng/mL B-Natriuretic Peptide (0-100) pg/mL Total Protein (6.4-8.2) g/dL Albumin (3.4-5.0) g/dL Vitamin D 25-Hydroxy (30-100) ng/mL Urine Color (Yellw/Straw) Urine Clarity (Clear) Urine pH (5.0-8.5) Ur Specific [place] (1.002-1.035) Urine Protein (Neg-Trace) mg/dL Urine Glucose (UA) (Negative) mg/dL Urine Ketones (Negative) mg/dL Urine Occult Blood (Negative) Urine Nitrate (Negative) Urine Bilirubin (Negative) Urine Urobilinogen (Less than 2) mg/dL Ur Leukocyte Esterase (Negative) Urine RBC (0-3) /hpf Urine WBC (0-5) /hpf Ur Squamous Epith Cells (0-5) /hpf Urine Bacteria (None) /hpf Hyaline Casts (0-3) /lpf Urine Mucus (Occasional) /lpf Micro UA Comment Ur Microscopic Review Urine Culture Comments Urine Opiates Screen (Neg) Acetaminophen (10.0-30.0) mcg/mL Ur Barbiturates Screen (Neg) Ur Amphetamines Screen (Neg) U Benzodiazepines Scrn (Neg) Urine Cocaine Screen (Neg) U Cannabinoids Screen (Neg) Serum Alcohol (0-5) mg/dL 10/25/18 10/25/18 10/26/18 Range/Units 15:30 22:09 06:42 WBC (4.0-11.0) th/mm3 RBC (4.00-5.30) mil/mm3 Hgb (11.6-15.3) gm/dL Hct (35.0-46.0) % MCV (80.0-100.0) fL MCH (27.0-34.0) pg MCHC (32.0-36.0) % RDW (11.6-17.2) % Plt Count (150-450) th/mm3 MPV (7.0-11.0) fL Neut % (Auto) (16.0-70.0) % Lymph % (Auto) (9.0-44.0) % [place] % (Auto) (0.0-8.0) % Eos % (Auto) (0.0-4.0) % Baso % (Auto) (0.0-2.0) % Neut # (Auto) (1.8-7.7) th/mm3 Lymph # (Auto) (1.0-4.8) th/mm3 [place] # (Auto) (0.0-0.9) th/mm3 Eos # (Auto) (0.0-0.4) th/mm3 Baso # (Auto) (0.0-0.2) th/mm3 WBC Differential Differential Comment PT (9.8-11.6) sec INR Ratio APTT (23.4-31.7) sec Sodium (136-145) meq/L Potassium (3.5-5.1) meq/L Chloride (98-107) meq/L Carbon Dioxide (21.0-32.0) meq/L Anion Gap (5-15) meq/L BUN (7-18) mg/dL Creatinine (0.50-1.00) mg/dL Estimated GFR (>89) mL/min POC Glucose (68-110) mg/dl Random Glucose (74-106) mg/dL Lactic Acid (0.4-2.0) mmol/L Calcium (8.5-10.1) mg/dL Magnesium (1.5-2.5) mg/dL Total Bilirubin (0.2-1.0) mg/dL AST (15-37) U/L ALT (10-53) U/L Alkaline Phosphatase (45-117) U/L Ammonia 16 (11-32) mcmol/L Total Creatine Kinase (26-192) U/L CK-MB (CK-2) (0.5-3.6) ng/mL CK-MB (CK-2) % (0.0-4.0) % Troponin I Cancelled 0.08 H (0.02-0.05) ng/mL B-Natriuretic Peptide (0-100) pg/mL Total Protein (6.4-8.2) g/dL Albumin (3.4-5.0) g/dL Vitamin D 25-Hydroxy (30-100) ng/mL Urine Color (Yellw/Straw) Urine Clarity (Clear) Urine pH (5.0-8.5) Ur Specific [place] (1.002-1.035) Urine Protein (Neg-Trace) mg/dL Urine Glucose (UA) (Negative) mg/dL Urine Ketones (Negative) mg/dL Urine Occult Blood (Negative) Urine Nitrate (Negative) Urine Bilirubin (Negative) Urine Urobilinogen (Less than 2) mg/dL Ur Leukocyte Esterase (Negative) Urine RBC (0-3) /hpf Urine WBC (0-5) /hpf Ur Squamous Epith Cells (0-5) /hpf Urine Bacteria (None) /hpf Hyaline Casts (0-3) /lpf Urine Mucus (Occasional) /lpf Micro UA Comment Ur Microscopic Review Urine Culture Comments Urine Opiates Screen (Neg) Acetaminophen Less than 2.0 L (10.0-30.0) mcg/mL Ur Barbiturates Screen (Neg) Ur Amphetamines Screen (Neg) U Benzodiazepines Scrn (Neg) Urine Cocaine Screen (Neg) U Cannabinoids Screen (Neg) Serum Alcohol Less than 3 (0-5) mg/dL 10/26/18 10/26/18 10/26/18 Range/Units 06:42 06:42 06:42 WBC 8.2 D (4.0-11.0) th/mm3 RBC 4.27 (4.00-5.30) mil/mm3 Hgb 12.5 (11.6-15.3) gm/dL Hct 39.4 (35.0-46.0) % MCV 92.1 (80.0-100.0) fL MCH 29.3 (27.0-34.0) pg MCHC 31.8 L (32.0-36.0) % RDW 15.9 (11.6-17.2) % Plt Count 183 (150-450) th/mm3 MPV 8.3 (7.0-11.0) fL Neut % (Auto) 80.1 H (16.0-70.0) % Lymph % (Auto) 10.2 (9.0-44.0) % [place] % (Auto) 9.5 H (0.0-8.0) % Eos % (Auto) 0.0 (0.0-4.0) % Baso % (Auto) 0.2 (0.0-2.0) % Neut # (Auto) 6.6 (1.8-7.7) th/mm3 Lymph # (Auto) 0.8 L (1.0-4.8) th/mm3 [place] # (Auto) 0.8 (0.0-0.9) th/mm3 Eos # (Auto) 0.0 (0.0-0.4) th/mm3 Baso # (Auto) 0.0 (0.0-0.2) th/mm3 WBC Differential . Differential Comment Auto diff final PT (9.8-11.6) sec INR Ratio APTT (23.4-31.7) sec Sodium 144 (136-145) meq/L Potassium 3.2 L D (3.5-5.1) meq/L Chloride 108 H (98-107) meq/L Carbon Dioxide 27.4 (21.0-32.0) meq/L Anion Gap 9 (5-15) meq/L BUN 22 H (7-18) mg/dL Creatinine 0.86 (0.50-1.00) mg/dL Estimated GFR 63 L (>89) mL/min POC Glucose (68-110) mg/dl Random Glucose 124 H (74-106) mg/dL Lactic Acid (0.4-2.0) mmol/L Calcium 8.5 (8.5-10.1) mg/dL Magnesium (1.5-2.5) mg/dL Total Bilirubin 1.1 H (0.2-1.0) mg/dL AST 20 (15-37) U/L ALT 17 (10-53) U/L Alkaline Phosphatase 111 (45-117) U/L Ammonia (11-32) mcmol/L Total Creatine Kinase (26-192) U/L CK-MB (CK-2) (0.5-3.6) ng/mL CK-MB (CK-2) % (0.0-4.0) % Troponin I (0.02-0.05) ng/mL B-Natriuretic Peptide (0-100) pg/mL Total Protein 6.0 L (6.4-8.2) g/dL Albumin 2.8 L (3.4-5.0) g/dL Vitamin D 25-Hydroxy 35.7 Cancelled (30-100) ng/mL Urine Color (Yellw/Straw) Urine Clarity (Clear) Urine pH (5.0-8.5) Ur Specific [place] (1.002-1.035) Urine Protein (Neg-Trace) mg/dL Urine Glucose (UA) (Negative) mg/dL Urine Ketones (Negative) mg/dL Urine Occult Blood (Negative) Urine Nitrate (Negative) Urine Bilirubin (Negative) Urine Urobilinogen (Less than 2) mg/dL Ur Leukocyte Esterase (Negative) Urine RBC (0-3) /hpf Urine WBC (0-5) /hpf Ur Squamous Epith Cells (0-5) /hpf Urine Bacteria (None) /hpf Hyaline Casts (0-3) /lpf Urine Mucus (Occasional) /lpf Micro UA Comment Ur Microscopic Review Urine Culture Comments Urine Opiates Screen (Neg) Acetaminophen (10.0-30.0) mcg/mL Ur Barbiturates Screen (Neg) Ur Amphetamines Screen (Neg) U Benzodiazepines Scrn (Neg) Urine Cocaine Screen (Neg) U Cannabinoids Screen (Neg) Serum Alcohol (0-5) mg/dL Imaging Data Radiologist's impression: Cervical Spine CT 10/25/18 12:15 CONCLUSION: 1. No acute cervical spine abnormality is identified. 2. Multilevel degenerative disc disease similar to the prior examination. Chest X-Ray 10/25/18 12:15 CONCLUSION: Cardiomegaly with mild interstitial edema Left upper rib fractures as described above without pneumothorax. Head CT 10/25/18 12:15 CONCLUSION: 1. Negative for an acute process 2. No significant atrophy . Ankle X-Ray 10/25/18 12:17 CONCLUSION: Nondisplaced fracture lateral malleolus. Ankle X-Ray 10/25/18 12:17 CONCLUSION: 1. Nondisplaced fracture through the medial malleolus and posterior tibial fracture which extends into the tibiotalar joint. 2. Oblique minimally displaced fracture of the distal fibular metaphysis. Pelvis X-Ray 10/25/18 12:17 CONCLUSION: Under mineralized bones. No acute abnormality is identified. Discharge Plan Discharge Disposition Patient Disposition: ED Admit(ED Internal Use Only) Discharge Order Discharge Orders: ED Use Only Admit Order (Routine); Ordered 10/25/18 Ordered By: Radha Gonzáles Discharge Details Diagnosis: Altered mental status, Elevated troponin, Elevated lactic acid level, Bilateral ankle fractures, Multiple rib fractures Physicians Team ED Provider: Obi Rios ED Midlevel Provider: Radha Gonzáles Primary Care Provider: Javi Morales Attending Provider: Josie Brower Other Providers: Darrius Marquis ; Dalton Meza Status ED Status: Left Department Discharge Information Discharge Date/Time: 10/25/18 15:43
[2018-10-25 12:42] LABS: Baso % (Auto) 0.5 % (0.0-2.0); Eos % (Auto) 0.6 % (0.0-4.0); Hematocrit 41.2 % (35.0-46.0); Hemoglobin 13.1 gm/dL (11.6-15.3); Lymph # (Auto) 0.7 th/mm3 (1.0-4.8); Lymph % (Auto) 13.7 % (9.0-44.0); Mean Corpuscular HGB Conc 31.7 % (32.0-36.0); Mean Corpuscular Hemoglobin 29.4 pg (27.0-34.0); Mean Corpuscular Volume 92.6 fL (80.0-100.0); Mono # (Auto) 0.4 th/mm3 (0.0-0.9); Mono % (Auto) 8.4 % (0.0-8.0); Neut # (Auto) 3.8 th/mm3 (1.8-7.7); Neut % (Auto) 76.8 % (16.0-70.0); Platelet Count 217 th/mm3 (150-450); Red Blood Count 4.45 mil/mm3 (4.00-5.30); Red Cell Distribution Width 16.4 % (11.6-17.2)
--- NOTE | 2018-10-25 12:47 | XR ---
EXAM DATE: 10/25/2018 12:37 PM EST AGE/SEX: 78 years / Female INDICATIONS: Chest pain after fall. CLINICAL DATA: This is the patient's initial encounter. Patient reports that signs and symptoms have been present for 1 day and indicates a pain score of Nonresponsive. MEDICAL/SURGICAL HISTORY: Congestive heart failure. . Spinal stimulator. COMPARISON: [facility], CHEST 1V SINGLE AP, 09/19/2018. . FINDINGS: The heart is enlarged. Mild interstitial edema is present. Spinal stimulator is noted. There is no pn eumothorax. There are fractures of the fourth fifth and sixth ribs anteriorly on the left. Osteopenia makes detection of nondisplaced rib fractures difficult. CONCLUSION: Cardiomegaly with mild interstitial edema Left upper rib fractures as described above without pneumothorax. Electronically signed by: Gopal Mcintyre MD 10/25/2018 12:45 PM EST
--- NOTE | 2018-10-25 12:48 | XR ---
EXAM DATE: 10/25/2018 12:42 PM EST AGE/SEX: 78 years / Female INDICATIONS: Pelvic pain after fall. CLINICAL DATA: This is the patient's initial encounter. Patient reports that signs and symptoms have been present for 1 day and indicates a pain score of Nonresponsive. MEDICAL/SURGICAL HISTORY: Congestive heart failure. . Spinal stimulator. Lumbar fusion. COMPARISON: [facility], CT ABDOMEN AND PELVIS W/O CONTRAST, 02/05/2017. . FINDINGS: Slightly rotated AP view of the pelvis demonstrates no acute fracture or dislocation. The bones are u nder mineralized. There is mild osteoarthritis of the hip joints bilaterally. Sacroiliac joints and p ubic symphysis demonstrate no significant abnormality. There is a lumbosacral hardware present and ne urostimulator device overlies the left iliac bone. No soft tissue abnormality or concerning radiopaqu e foreign body is identified. CONCLUSION: Under mineralized bones. No acute abnormality is identified. Electronically signed by: Virgil Taveras MD 10/25/2018 12:46 PM EST
--- NOTE | 2018-10-25 12:51 | XR ---
EXAM DATE: 10/25/2018 12:44 PM EST AGE/SEX: 78 years / Female INDICATIONS: Right ankle pain after fall. CLINICAL DATA: This is the patient's initial encounter. Patient reports that signs and symptoms have been present for 1 day and indicates a pain score of Nonresponsive. MEDICAL/SURGICAL HISTORY: Congestive heart failure. . Spinal stimulator. Lumbar fusion. COMPARISON: No prior exams available for comparison. FINDINGS: 3 views of the right foot demonstrate an oblique fracture of the distal fibular metaphysis with 2 mm of lateral displacement of the distal fragment. Ankle mortise is intact. There is a lucency through t he medial malleolus and posterior tibia extending into the tibiotalar joint. There is medial and late ral ankle soft tissue swelling. No radiopaque foreign body is identified. CONCLUSION: 1. Nondisplaced fracture through the medial malleolus and posterior tibial fracture which extends in to the tibiotalar joint. 2. Oblique minimally displaced fracture of the distal fibular metaphysis. Electronically signed by: Virgil Taveras MD 10/25/2018 12:49 PM EST
--- NOTE | 2018-10-25 12:51 | CT ---
EXAM DATE: 10/25/2018 12:46 PM EST AGE/SEX: 78 years / Female INDICATIONS: Fall. Increased confusion. CLINICAL DATA: This is the patient's initial encounter. Patient reports that signs and symptoms have been present for 1 day and indicates a pain score of 0/10. MEDICAL/SURGICAL HISTORY: Hypertension. Cardiovascular disease. Hysterectomy. RADIATION DOSE: 56.35 CTDI (mGy) COMPARISON: [facility], CT HEAD W/O CONTRAST, 09/19/2018. . TECHNIQUE: CT of the head without contrast. Using automated exposure control and adjustment of the mA and/or kV according to patient size, radiation dose was kept as low as reasonably achievable to ob tain optimal diagnostic quality images. DICOM format image data is available electronically for revi ew and comparison. FINDINGS: Cerebrum: The ventricles are normal for age. No evidence of midline shift, mass lesion, hemorrhage or acute infarction. No extraaxial fluid collections are seen. Posterior Fossa: The cerebellum and brainstem are intact. The 4th ventricle is midline. The cerebe llopontine angle is unremarkable. Extracranial: The visualized portion of the orbits is intact. Skull: The calvaria is intact. No evidence of skull fracture. CONCLUSION: 1. Negative for an acute process 2. No significant atrophy . Electronically signed by: Gopal Mcintyre MD 10/25/2018 12:50 PM EST
[2018-10-25 12:52] LABS: Activated Partial Thrombo Time 29.8 sec (23.4-31.7); INR 1.4 Ratio; Prothrombin Time 13.9 sec (9.8-11.6)
--- NOTE | 2018-10-25 12:52 | XR ---
EXAM DATE: 10/25/2018 12:46 PM EST AGE/SEX: 78 years / Female INDICATIONS: Left ankle pain after fall. CLINICAL DATA: This is the patient's initial encounter. Patient reports that signs and symptoms have been present for 1 day and indicates a pain score of Nonresponsive. MEDICAL/SURGICAL HISTORY: Congestive heart failure. . Spinal stimulator. Lumbar fusion. COMPARISON: . FINDINGS: Nondisplaced fracture of the lateral malleolus extending just above the tibial plafond with associate d soft tissue swelling. Talus and calcaneus are intact. Medial malleolus intact. CONCLUSION: Nondisplaced fracture lateral malleolus. Electronically signed by: Gopal Mcintyre MD 10/25/2018 12:50 PM EST
[2018-10-25 13:01] LABS: Alanine Aminotransferase 23 U/L (10-53)
[2018-10-25 13:02] LABS: Bacteria,Urine Rare /hpf; Bilirubin,Urine Negative (Negative); Clarity,Urine Clear (Clear); Color,Urine Yellow (Yellw/Straw); Glucose,Urine (UA) Negative (Negative); Hyaline Casts,Urine 1 /lpf (0-3); Leukocyte Esterase,Urine Negative (Negative); Mucus,Urine Few /lpf (Occasional); Nitrite,Urine Negative (Negative); Specific Gravity,Urine 1.009 (1.002-1.035); Squamous Epithelial Cell,Urine 3 /hpf (0-5)
[2018-10-25 13:04] LABS: Albumin 2.8 g/dL (3.4-5.0); Alkaline Phosphatase 119 U/L (45-117); Anion Gap 5 meq/L (5-15); Aspartate Aminotransferase 65 U/L (15-37); Blood Urea Nitrogen 25 mg/dL (7-18); Calcium 8.4 mg/dL (8.5-10.1); Carbon Dioxide 29.6 meq/L (21.0-32.0); Chloride 103 meq/L (98-107); Creatine Kinase 198 U/L (26-192); Glomerular Filtration Rate 46 mL/min (>89); Glucose,Random 121 mg/dL (74-106); Magnesium 2.2 mg/dL (1.5-2.5); Sodium 138 meq/L (136-145); Total Protein 6.5 g/dL (6.4-8.2); Troponin I 0.08 ng/mL (0.02-0.05)
[2018-10-25 13:05] LABS: Potassium 5.2 meq/L (3.5-5.1)
[2018-10-25 13:19] LABS: CKMB Percent 0.5 % (0.0-4.0)
[2018-10-25] MEDS ORDERED: Sodium Chlor 0.9% Inj 500 ML IV.SIG ONE (13:24)
--- NOTE | 2018-10-25 13:30 | CT ---
EXAM DATE: 10/25/2018 12:55 PM EST AGE/SEX: 78 years / Female INDICATIONS: Fall. CLINICAL DATA: This is the patient's initial encounter. Patient reports that signs and symptoms have been present for 1 day and indicates a pain score of 2/10. MEDICAL/SURGICAL HISTORY: Cardiovascular disease. Hypertension. Hysterectomy. RADIATION DOSE: 26.25 CTDI (mGy) COMPARISON: [facility], CT CERVICAL SPINE W/O CONTRAST, 05/29/2015. . TECHNIQUE: Contiguous axial images were obtained using helical multirow detector technique. The vol umetric data was post-processed with multiplanar reconstruction in oblique axial, sagittal, and coron al planes. Using automated exposure control and adjustment of the mA and/or kV according to patient s ize, radiation dose was kept as low as reasonably achievable to obtain optimal diagnostic quality tala ges. DICOM format image data is available electronically for review and comparison. FINDINGS: There is no fracture or dislocation. The bones appear undermineralized. No anterolisthesis or retroli sthesis is present. The atlantoaxial relationship is within normal limits and there is no prevertebra l soft tissue swelling. Degenerative disc disease is present at C3-C4 and extending through C6-C7. No large disc herniation is visualized in the upper cervical spine. The visualized surrounding structur es demonstrate no acute abnormality. CONCLUSION: 1. No acute cervical spine abnormality is identified. 2. Multilevel degenerative disc disease similar to the prior examination. Electronically signed by: Virgil Taveras MD 10/25/2018 1:29 PM EST
[2018-10-25] MEDS ORDERED: Morphine Inj 4 MG/ML Vial IV.PUSH ONE (13:49)
[2018-10-25] MEDS ORDERED: Sod Chloride 0.9% Inj 1,000 ML IV.CONT SCH (14:00)
--- NOTE | 2018-10-25 14:02 | P.HPFP ---
History of Present Illness Primary Care Physician: Javi Morales MD <Josie Brower R - 10/26/18 11:00> Javi Morales MD <Joselito Best B - 10/25/18 14:02> History of Present Illness: 78 yo F with PMH Afib, HTN, chronic back pain w/ spinal stimulator of presented for AMS, fall on day of admission. History taken from patient's daughter Fractured her wrist/deconditioning/CHF lead to a SNF for rehab in August, however family withdrew her later that month due to concern for poor care. Was at her normal self when she left rehab. Baseline - uses walker/wheelchair due to spinal surgery, needs help clothing/bathing herself. 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 Has continued to be constipated Fever of 101 night prior to admission, resolved with Tylenol. Productive cough ( yellowish/brown sputum), no urinary symptoms that family has noticed. Apparently tried to get out of bed by herself this morning and the family heard her fall. Was found on the floor. Patient endorsed hearing a "pop" to her family. PMH: Afib, HTN, CHF, Osteoporosis, HLD, constipation Surgical hx: hysterectomy, spinal disc removed, spinal stimulator, appendectomy Family: Breast cancer Social: Lives at home with daughter, son. Formerly worked at [employer] in [place], former smoker, no substance abuse Allergies: NKDA, is allergic to adhesive tape <Joselito Best - 10/25/18 19:52> - Diagnosis (1) Altered mental status (2) Fall (3) Bilateral ankle fractures (4) Multiple rib fractures (5) Afib (6) Congestive heart failure (7) Hypertension (8) Nutrition, metabolism, and development symptoms <Josie Brower R - 10/26/18 11:00> (1) Altered mental status (2) Fall (3) Bilateral ankle fractures (4) Multiple rib fractures (5) Afib (6) Congestive heart failure (7) Hypertension (8) Nutrition, metabolism, and development symptoms <Joselito Best 10/25/18 19:28> Inpatient Certification: I certify that the inpatient services were ordered in accordance with Medicare regulations governing the order. This includes certification that hospital inpatient services are reasonable and necessary and in the case of services not specified as inpatient-only under 42 CFR 419.22(n), that they are appropriately provided as inpatient services in accordance to with the 2-midnight benchmark under 43 CFR 412.3(e) <Josie Brower 10/26/18 11:00> I certify that the inpatient services were ordered in accordance with Medicare regulations governing the order. This includes certification that hospital inpatient services are reasonable and necessary and in the case of services not specified as inpatient-only under 42 CFR 419.22(n), that they are appropriately provided as inpatient services in accordance to with the 2-midnight benchmark under 43 CFR 412.3(e) <Joselito Best 10/25/18 14:02> Estimated Total Length of Stay (Days): 3 <Joselito Best 10/25/18 14:02> Plans for Post Hospital Care: Not yet determined <Joselito Best 10/25/18 14:02> Review of Systems All other systems reviewed negative except as stated in HPI <Joselito Best 10/25/18 18:50> PMFSH - History History Provided By: Family Member <Joselito Best 10/25/18 18:50> - Medical History Medical History: Medical History (Last Reviewed 10/25/18 @ 18:49 by Joselito Best MD, R2) Atrial fibrillation Congestive heart failure Coronary artery disease Osteoporosis Chronic pain History of hysterectomy Hypertension Spinal cord stimulator status <Josie Brower 10/26/18 11:00> Medical History (Last Reviewed 10/25/18 @ 18:49 by Joselito Best MD, R2) Atrial fibrillation Congestive heart failure Coronary artery disease Osteoporosis Chronic pain History of hysterectomy Hypertension Spinal cord stimulator status <Joselito Best 10/25/18 18:50> - Surgical History Surgical History: Surgical History (Last Reviewed 10/25/18 @ 18:49 by Joselito Best MD, R2) H/O heart artery stent Previous back surgery <Josie Brower 10/26/18 11:00> Surgical History (Last Reviewed 10/25/18 @ 18:49 by Joselito Best MD, R2) H/O heart artery stent Previous back surgery <Joselito Best 10/25/18 18:50> - Family History Family History: Family History (Last Updated 10/25/18 @ 16:23 by Silvino Ocampo) Other Alcohol abuse Family history of breast cancer Tuberculosis <Josie Brower 10/26/18 11:00> Family History (Last Updated 10/25/18 @ 16:23 by Silvino Ocampo) Other Alcohol abuse Family history of breast cancer Tuberculosis <Joselito Best 10/25/18 18:45> - Tobacco History Second Hand Smoke Exposure: No <Joselito Best 10/25/18 14:02> Tobacco Use In Past 30 Days: No <Joselito Best 10/25/18 14:02> Smoking Status: Former smoker <Joselito Best 10/25/18 14:02> Tobacco Type: Cigarettes <Joselito Best 10/25/18 14:02> - Alcohol History How Often Do You Have a Drink Containing Alcohol: Unable to Obtain <Joselito Best 10/25/18 14:02> - Substance Use History Substance History: No History of Abuse <Joselito Best 10/25/18 14:02> - Travel History Recent Travel in the [facility] Within the Last 8 Weeks: No <Joselito Best 10/25 14:02> Recent Travel Out of the Country Within the Last 8 Weeks: No <Joselito Best 10/25/18 14:02> - Immunization History Tetanus Immunization: Unsure <Joselito Best 10/25/18 14:02> Medications and Allergies Allergies Allergy/AdvReac Type Severity Reaction Status Date / Time adhesive Allergy Severe RASH Verified 09/19/18 12:28 <Josie Brower 10/26/18 11:00> Home Medications Medication Instructions Recorded Confirmed Type apixaban [Eliquis] 5 mg PO BID 08/27/18 10/25/18 History atorvastatin 20 mg PO HS 08/27/18 10/25/18 History ibandronate 150 mg PO QMONTH 08/27/18 10/25/18 History pantoprazole 40 mg PO DAILY 08/27/18 10/25/18 History polyethylene glycol 3350 17 g PO DAILY 08/27/18 10/25/18 History sennosides-docusate sodium 1 tab PO BID PRN 08/27/18 10/25/18 History [Senexon-S] aspirin [Aspir-Low] 81 mg PO DAILY 09/19/18 10/25/18 History baclofen 10 mg PO TID PRN 09/19/18 10/25/18 History furosemide [Lasix] 80 mg PO DAILY 09/19/18 10/25/18 History metoprolol tartrate 25 mg PO BID 10/25/18 10/25/18 History <LeonardaJosie R - 10/26/18 11:00> Active Medications: Active Medications Acetaminophen (Tylenol) 650 mg PO Q6HR PRN PRN Reason: PAIN SCALE 1 TO 2 Hydrocodone Bitart/Acetaminophen ([place] 10/325) 1 tab PO Q4H PRN PRN Reason: PAIN SCALE 6 TO 10 Hydrocodone Bitart/Acetaminophen ([place] 5/325) 1 tab PO Q4H PRN PRN Reason: PAIN SCALE 3 TO 5 Al Hydroxide/Mg Hydroxide (Milk Of Magnesia Liq) 30 ml PO Q12H PRN PRN Reason: Mild Constipation Apixaban (Eliquis) 5 mg PO BID [facility] Last Admin: 10/26/18 08:55 Dose: 5 mg Aspirin (Ecotrin) 81 mg PO DAILY [facility] Last Admin: 10/26/18 08:54 Dose: 81 mg Atorvastatin Calcium (Lipitor) 20 mg PO HS [facility] Last Admin: 10/25/18 20:49 Dose: 20 mg Baclofen (Lioresal) 10 mg PO TID PRN PRN Reason: Muscle Pain Bisacodyl (Dulcolax Supp) 10 mg RECTAL DAILY PRN PRN Reason: SEVERE CONSITIPATION Diltiazem HCl (Cardizem Cd 24hr) 240 mg PO DAILY [facility] Last Admin: 10/26/18 08:54 Dose: 240 mg Furosemide (Lasix) 80 mg PO DAILY [facility] Last Admin: 10/26/18 08:54 Dose: 80 mg Acetaminophen (Ofirmev Inj) 1,000 mg in 100 mls @ 400 mls/hr IV.SIG Q6H [facility] Stop: 10/26/18 14:14 Last Infusion: 10/26/18 09:21 Dose: Infused Lactulose (Lactulose Liq) 30 ml PO DAILY PRN PRN Reason: SEVERE CONSITIPATION Metoprolol Tartrate (Lopressor) 25 mg PO BID [facility] Last Admin: 10/26/18 08:54 Dose: 25 mg Morphine Sulfate (Morphine Inj) 1 mg IV.PUSH Q3H PRN PRN Reason: BREAKTHROUGH PAIN Naloxone HCl (Narcan Inj) 0.4 mg IV.PUSH UNSCH PRN PRN Reason: SEE LABEL COMMENTS Ondansetron HCl (Zofran Inj) 4 mg IV.PUSH Q6H PRN PRN Reason: NAUSEA OR VOMITING Pantoprazole Sodium (Protonix) 40 mg PO DAILY [facility] Last Admin: 10/26/18 08:56 Dose: Not Given Senna/Docusate Sodium (Tammy-Colace) 1 tab PO BID [facility] Last Admin: 10/26/18 08:54 Dose: 1 tab Sennosides (Senokot) 17.2 mg PO Q12H PRN PRN Reason: Moderate Constipation Sodium Chloride (Ns Flush) 2 ml IV.FLUSH UNSCH PRN PRN Reason: FLUSH AFTER USING IV ACCESS Sodium Chloride (Ns Flush) 2 ml IV.FLUSH BID [facility] Last Admin: 10/26/18 08:56 Dose: 2 ml <Josie Brower R - 10/26/18 11:00> Active Medications Sodium Chloride (Ns Inj) 1,000 mls @ 75 mls/hr IV.CONT .[id number] [facility] Sodium Chloride (Ns Flush) 2 ml IV.FLUSH PRN PRN PRN Reason: FLUSH AFTER USING IV ACCESS Last Admin: 10/25/18 13:56 Dose: 2 ml Sodium Chloride (Ns Flush) 2 ml IV.FLUSH PRN PRN PRN Reason: FLUSH AFTER USING IV ACCESS <Joselito Best B - 10/25/18 14:02> Exam Vital signs: Vital Signs 10/25/18 12:50 10/25/18 14:42 10/25/18 16:30 Temperature 98.1 F Pulse Rate 65 80 77 Respiratory Rate 19 18 Blood Pressure 108/67 150/70 H Pulse Oximetry 95 95 94 L 10/25/18 20:00 10/26/18 00:00 10/26/18 00:48 Temperature 99.1 F 97.2 F L Pulse Rate 147 H 78 Respiratory Rate 17 16 Blood Pressure 132/58 L 111/74 Pulse Oximetry 91 L 94 L 93 L 10/26/18 04:00 10/26/18 08:00 Temperature 97.6 F 98.1 F Pulse Rate 84 136 H Respiratory Rate 16 16 Blood Pressure 138/69 94/67 L Pulse Oximetry 92 L 98 Intake & Output 10/25/18 10/26/18 10/26/18 18:59 06:59 18:59 Intake Total 500 / 500 1200 / 1200 110 / 110 Output Total 150 / 150 Balance 500 / 500 1050 / 1050 110 / 110 Weight 40.823 kg 44 kg Intake: IV 500 / 500 1200 / 1200 110 / 110 NS Inj 1,000 ML @ 75 mls/hr IV. 1000 / 1000 CONT .[id number] [facility] Rx#:[id number] Ofirmev Inj 1,000 mg In 100 ml 200 / 200 110 / 110 @ 400 mls/hr IV.SIG Q6H [facility] Rx# :[id number] NS Inj 500 ML @ Wide Open IV. 500 / 500 SIG BOLUS ONE Rx#:[id number] Oral 0 / 0 Output: Urine 150 / 150 Other: # Bowel Movements 0 <Josie Brower R - 10/26/18 11:00> Vital Signs 10/25/18 10:55 10/25/18 10:58 10/25/18 12:50 Temperature 98.4 F Pulse Rate 63 82 65 Respiratory Rate 18 Blood Pressure 143/85 H Pulse Oximetry 94 L 95 95 Intake & Output 10/24/18 10/25/18 10/25/18 18:59 06:59 18:59 Weight 40.823 kg <Joselito Best - 10/25/18 14:02> Narrative: GENERAL: Elderly white female lying in bed in mild to moderate distress secondary to pain. Answers questions appropriately with short answers. SKIN: Warm and dry. No bruising on the torso, no sacral ulcers/wounds HEAD: Atraumatic. Normocephalic. EYES: Pupils equal and round. No scleral icterus. No injection or drainage. ENT: No nasal bleeding or discharge. Mucous membranes pink and moist. NECK: Trachea midline. No JVD. CARDIOVASCULAR: Regular rate and rhythm. No murmurs appreciated RESPIRATORY: No accessory muscle use. Clear to auscultation. Breath sounds equal bilaterally. GASTROINTESTINAL: Abdomen soft, non-tender, nondistended. Hepatic and splenic margins not palpable. MUSCULOSKELETAL: Extremities without clubbing, cyanosis, or edema. Hard splints of the bilateral lower extremities from the mid tibia down. Adequate capillary refill in the toes, sensation intact NEUROLOGICAL: Drowsy but does awake when prompted and answers questions appropriately. Normal speech. PSYCHIATRIC: Appropriate mood and affect <Joselito Best B - 10/25/18 19:52> Results - Labs Result diagrams: 10/26/18 06:42 10/26/18 06:42 <Josie Brower - 10/26/18 11:00> Abnormal lab results 10/25/18 10/25/18 10/25/18 Range/Units 11:07 12:00 12:00 MCHC 31.7 L (32.0-36.0) % Neut % (Auto) 76.8 H (16.0-70.0) % Garza % (Auto) 8.4 H (0.0-8.0) % Lymph # (Auto) 0.7 L (1.0-4.8) th/mm3 PT 13.9 H (9.8-11.6) sec Potassium (3.5-5.1) meq/L Chloride (98-107) meq/L BUN (7-18) mg/dL Creatinine (0.50-1.00) mg/dL Estimated GFR (>89) mL/min POC Glucose 128 H (68-110) mg/dl Random Glucose (74-106) mg/dL Lactic Acid (0.4-2.0) mmol/L Calcium (8.5-10.1) mg/dL Total Bilirubin (0.2-1.0) mg/dL AST (15-37) U/L Alkaline Phosphatase (45-117) U/L Ammonia (11-32) mcmol/L Total Creatine Kinase (26-192) U/L Troponin I (0.02-0.05) ng/mL B-Natriuretic Peptide (0-100) pg/mL Total Protein (6.4-8.2) g/dL Albumin (3.4-5.0) g/dL Urine Bacteria (None) /hpf Urine Mucus (Occasional) /lpf Acetaminophen (10.0-30.0) mcg/mL 10/25/18 10/25/18 10/25/18 Range/Units 12:00 12:00 12:00 MCHC (32.0-36.0) % Neut % (Auto) (16.0-70.0) % Garza % (Auto) (0.0-8.0) % Lymph # (Auto) (1.0-4.8) th/mm3 PT (9.8-11.6) sec Potassium 5.2 H (3.5-5.1) meq/L Chloride (98-107) meq/L BUN 25 H (7-18) mg/dL Creatinine 1.13 H (0.50-1.00) mg/dL Estimated GFR 46 L (>89) mL/min POC Glucose (68-110) mg/dl Random Glucose 121 H (74-106) mg/dL Lactic Acid 2.2 H (0.4-2.0) mmol/L Calcium 8.4 L (8.5-10.1) mg/dL Total Bilirubin (0.2-1.0) mg/dL AST 65 H (15-37) U/L Alkaline Phosphatase 119 H (45-117) U/L Ammonia (11-32) mcmol/L Total Creatine Kinase 198 H (26-192) U/L Troponin I 0.08 H (0.02-0.05) ng/mL B-Natriuretic Peptide (0-100) pg/mL Total Protein (6.4-8.2) g/dL Albumin 2.8 L (3.4-5.0) g/dL Urine Bacteria (None) /hpf Urine Mucus (Occasional) /lpf Acetaminophen (10.0-30.0) mcg/mL 10/25/18 10/25/18 10/25/18 Range/Units 12:00 12:30 12:45 MCHC (32.0-36.0) % Neut % (Auto) (16.0-70.0) % Garza % (Auto) (0.0-8.0) % Lymph # (Auto) (1.0-4.8) th/mm3 PT (9.8-11.6) sec Potassium (3.5-5.1) meq/L Chloride (98-107) meq/L BUN (7-18) mg/dL Creatinine (0.50-1.00) mg/dL Estimated GFR (>89) mL/min POC Glucose (68-110) mg/dl Random Glucose (74-106) mg/dL Lactic Acid (0.4-2.0) mmol/L Calcium (8.5-10.1) mg/dL Total Bilirubin (0.2-1.0) mg/dL AST (15-37) U/L Alkaline Phosphatase (45-117) U/L Ammonia 59 H (11-32) mcmol/L Total Creatine Kinase (26-192) U/L Troponin I (0.02-0.05) ng/mL B-Natriuretic Peptide 434 H (0-100) pg/mL Total Protein (6.4-8.2) g/dL Albumin (3.4-5.0) g/dL Urine Bacteria Rare H (None) /hpf Urine Mucus Few H (Occasional) /lpf Acetaminophen (10.0-30.0) mcg/mL 10/25/18 10/25/18 10/25/18 Range/Units 15:30 15:30 22:09 MCHC (32.0-36.0) % Neut % (Auto) (16.0-70.0) % Garza % (Auto) (0.0-8.0) % Lymph # (Auto) (1.0-4.8) th/mm3 PT (9.8-11.6) sec Potassium (3.5-5.1) meq/L Chloride (98-107) meq/L BUN (7-18) mg/dL Creatinine (0.50-1.00) mg/dL Estimated GFR (>89) mL/min POC Glucose (68-110) mg/dl Random Glucose (74-106) mg/dL Lactic Acid (0.4-2.0) mmol/L Calcium (8.5-10.1) mg/dL Total Bilirubin (0.2-1.0) mg/dL AST (15-37) U/L Alkaline Phosphatase (45-117) U/L Ammonia (11-32) mcmol/L Total Creatine Kinase (26-192) U/L Troponin I 0.07 H 0.08 H (0.02-0.05) ng/mL B-Natriuretic Peptide (0-100) pg/mL Total Protein (6.4-8.2) g/dL Albumin (3.4-5.0) g/dL Urine Bacteria (None) /hpf Urine Mucus (Occasional) /lpf Acetaminophen Less than 2.0 L (10.0-30.0) mcg/mL 10/26/18 10/26/18 Range/Units 06:42 06:42 MCHC 31.8 L (32.0-36.0) % Neut % (Auto) 80.1 H (16.0-70.0) % Garza % (Auto) 9.5 H (0.0-8.0) % Lymph # (Auto) 0.8 L (1.0-4.8) th/mm3 PT (9.8-11.6) sec Potassium 3.2 L D (3.5-5.1) meq/L Chloride 108 H (98-107) meq/L BUN 22 H (7-18) mg/dL Creatinine (0.50-1.00) mg/dL Estimated GFR 63 L (>89) mL/min POC Glucose (68-110) mg/dl Random Glucose 124 H (74-106) mg/dL Lactic Acid (0.4-2.0) mmol/L Calcium (8.5-10.1) mg/dL Total Bilirubin 1.1 H (0.2-1.0) mg/dL AST (15-37) U/L Alkaline Phosphatase (45-117) U/L Ammonia (11-32) mcmol/L Total Creatine Kinase (26-192) U/L Troponin I (0.02-0.05) ng/mL B-Natriuretic Peptide (0-100) pg/mL Total Protein 6.0 L (6.4-8.2) g/dL Albumin 2.8 L (3.4-5.0) g/dL Urine Bacteria (None) /hpf Urine Mucus (Occasional) /lpf Acetaminophen (10.0-30.0) mcg/mL Short CBC 10/25/18 10/26/18 Range/Units 12:00 06:42 WBC 5.0 8.2 D (4.0-11.0) th/mm3 Hgb 13.1 12.5 (11.6-15.3) gm/dL Hct 41.2 39.4 (35.0-46.0) % Plt Count 217 183 (150-450) th/mm3 BMP 10/25/18 10/26/18 12:00 06:42 Sodium 138 144 Potassium 5.2 H 3.2 L D Chloride 103 108 H Carbon Dioxide 29.6 27.4 BUN 25 H 22 H Creatinine 1.13 H 0.86 Calcium 8.4 L 8.5 Cardiac Enzymes 10/25/18 10/25/18 10/25/18 Range/Units 12:00 12:00 15:30 Total Creatine Kinase 198 H (26-192) U/L CK-MB (CK-2) Less than 1.0 (0.5-3.6) ng/mL Troponin I 0.08 H 0.07 H (0.02-0.05) ng/mL 10/25/18 10/25/18 Range/Units 15:30 22:09 Total Creatine Kinase (26-192) U/L CK-MB (CK-2) (0.5-3.6) ng/mL Troponin I Cancelled 0.08 H (0.02-0.05) ng/mL Liver Function 10/25/18 10/26/18 Range/Units 12:00 06:42 Total Bilirubin 0.8 1.1 H (0.2-1.0) mg/dL AST 65 H 20 (15-37) U/L ALT 23 17 (10-53) U/L Alkaline Phosphatase 119 H 111 (45-117) U/L Albumin 2.8 L 2.8 L (3.4-5.0) g/dL Urine 10/25/18 Range/Units 12:30 Urine Color Yellow (Yellw/Straw) Urine Clarity Clear (Clear) Urine pH 7.0 (5.0-8.5) Ur Specific [place] 1.009 (1.002-1.035) Urine Protein Negative (Neg-Trace) mg/dL Urine Glucose (UA) Negative (Negative) mg/dL <Josie Brower - 10/26/18 11:00> Abnormal lab results 10/25/18 10/25/18 10/25/18 Range/Units 11:07 12:00 12:00 MCHC 31.7 L (32.0-36.0) % Neut % (Auto) 76.8 H (16.0-70.0) % Garza % (Auto) 8.4 H (0.0-8.0) % Lymph # (Auto) 0.7 L (1.0-4.8) th/mm3 PT 13.9 H (9.8-11.6) sec Potassium (3.5-5.1) meq/L BUN (7-18) mg/dL Creatinine (0.50-1.00) mg/dL Estimated GFR (>89) mL/min POC Glucose 128 H (68-110) mg/dl Random Glucose (74-106) mg/dL Lactic Acid (0.4-2.0) mmol/L Calcium (8.5-10.1) mg/dL AST (15-37) U/L Alkaline Phosphatase (45-117) U/L Ammonia (11-32) mcmol/L Total Creatine Kinase (26-192) U/L Troponin I (0.02-0.05) ng/mL B-Natriuretic Peptide (0-100) pg/mL Albumin (3.4-5.0) g/dL Urine Bacteria (None) /hpf Urine Mucus (Occasional) /lpf 10/25/18 10/25/18 10/25/18 Range/Units 12:00 12:00 12:00 MCHC (32.0-36.0) % Neut % (Auto) (16.0-70.0) % Garza % (Auto) (0.0-8.0) % Lymph # (Auto) (1.0-4.8) th/mm3 PT (9.8-11.6) sec Potassium 5.2 H (3.5-5.1) meq/L BUN 25 H (7-18) mg/dL Creatinine 1.13 H (0.50-1.00) mg/dL Estimated GFR 46 L (>89) mL/min POC Glucose (68-110) mg/dl Random Glucose 121 H (74-106) mg/dL Lactic Acid 2.2 H (0.4-2.0) mmol/L Calcium 8.4 L (8.5-10.1) mg/dL AST 65 H (15-37) U/L Alkaline Phosphatase 119 H (45-117) U/L Ammonia (11-32) mcmol/L Total Creatine Kinase 198 H (26-192) U/L Troponin I 0.08 H (0.02-0.05) ng/mL B-Natriuretic Peptide (0-100) pg/mL Albumin 2.8 L (3.4-5.0) g/dL Urine Bacteria (None) /hpf Urine Mucus (Occasional) /lpf 10/25/18 10/25/18 10/25/18 Range/Units 12:00 12:30 12:45 MCHC (32.0-36.0) % Neut % (Auto) (16.0-70.0) % Garza % (Auto) (0.0-8.0) % Lymph # (Auto) (1.0-4.8) th/mm3 PT (9.8-11.6) sec Potassium (3.5-5.1) meq/L BUN (7-18) mg/dL Creatinine (0.50-1.00) mg/dL Estimated GFR (>89) mL/min POC Glucose (68-110) mg/dl Random Glucose (74-106) mg/dL Lactic Acid (0.4-2.0) mmol/L Calcium (8.5-10.1) mg/dL AST (15-37) U/L Alkaline Phosphatase (45-117) U/L Ammonia 59 H (11-32) mcmol/L Total Creatine Kinase (26-192) U/L Troponin I (0.02-0.05) ng/mL B-Natriuretic Peptide 434 H (0-100) pg/mL Albumin (3.4-5.0) g/dL Urine Bacteria Rare H (None) /hpf Urine Mucus Few H (Occasional) /lpf Short CBC 10/25/18 Range/Units 12:00 WBC 5.0 (4.0-11.0) th/mm3 Hgb 13.1 (11.6-15.3) gm/dL Hct 41.2 (35.0-46.0) % Plt Count 217 (150-450) th/mm3 BMP 10/25/18 12:00 Sodium 138 Potassium 5.2 H Chloride 103 Carbon Dioxide 29.6 BUN 25 H Creatinine 1.13 H Calcium 8.4 L Cardiac Enzymes 10/25/18 10/25/18 Range/Units 12:00 12:00 Total Creatine Kinase 198 H (26-192) U/L CK-MB (CK-2) Less than 1.0 (0.5-3.6) ng/mL Troponin I 0.08 H (0.02-0.05) ng/mL Liver Function 10/25/18 Range/Units 12:00 Total Bilirubin 0.8 (0.2-1.0) mg/dL AST 65 H (15-37) U/L ALT 23 (10-53) U/L Alkaline Phosphatase 119 H (45-117) U/L Albumin 2.8 L (3.4-5.0) g/dL Urine 10/25/18 Range/Units 12:30 Urine Color Yellow (Yellw/Straw) Urine Clarity Clear (Clear) Urine pH 7.0 (5.0-8.5) Ur Specific [place] 1.009 (1.002-1.035) Urine Protein Negative (Neg-Trace) mg/dL Urine Glucose (UA) Negative (Negative) mg/dL <Joselito Best - 10/25/18 14:02> - Imaging Impressions Cervical Spine CT 10/25/18 12:15 CONCLUSION: 1. No acute cervical spine abnormality is identified. 2. Multilevel degenerative disc disease similar to the prior examination. Chest X-Ray 10/25/18 12:15 CONCLUSION: Cardiomegaly with mild interstitial edema Left upper rib fractures as described above without pneumothorax. Head CT 10/25/18 12:15 CONCLUSION: 1. Negative for an acute process 2. No significant atrophy . Ankle X-Ray 10/25/18 12:17 CONCLUSION: Nondisplaced fracture lateral malleolus. Ankle X-Ray 10/25/18 12:17 CONCLUSION: 1. Nondisplaced fracture through the medial malleolus and posterior tibial fracture which extends into the tibiotalar joint. 2. Oblique minimally displaced fracture of the distal fibular metaphysis. Pelvis X-Ray 10/25/18 12:17 CONCLUSION: Under mineralized bones. No acute abnormality is identified. <Josie Brower - 10/26/18 11:00> Impressions Cervical Spine CT 10/25/18 12:15 CONCLUSION: 1. No acute cervical spine abnormality is identified. 2. Multilevel degenerative disc disease similar to the prior examination. Chest X-Ray 10/25/18 12:15 CONCLUSION: Cardiomegaly with mild interstitial edema Left upper rib fractures as described above without pneumothorax. Head CT 10/25/18 12:15 CONCLUSION: 1. Negative for an acute process 2. No significant atrophy . Ankle X-Ray 10/25/18 12:17 CONCLUSION: Nondisplaced fracture lateral malleolus. Ankle X-Ray 10/25/18 12:17 CONCLUSION: 1. Nondisplaced fracture through the medial malleolus and posterior tibial fracture which extends into the tibiotalar joint. 2. Oblique minimally displaced fracture of the distal fibular metaphysis. Pelvis X-Ray 10/25/18 12:17 CONCLUSION: Under mineralized bones. No acute abnormality is identified. <Joselito Best - 10/25/18 14:02> Caprini VTE Risk Assessment Caprini VTE Risk Assessment: Moderate/High Risk (score >= 2) <Joselito Best - 10/25/18 19:52> Caprini Risk Assessment Model: Point Value = 1 Point Value = 2 Point Value = 3 Point Value = 5 Age 41-60 Minor surgery BMI > 25 kg/m2 Swollen legs Varicose veins or History of unexplained or recurrent spontaneous Oral contraceptives or hormone replacement Sepsis (< 1 month) Serious lung disease, including pneumonia (< 1 month) Abnormal pulmonary function Acute myocardial infarction Congestive heart failure (< 1 month) History of inflammatory bowel disease Medical patient at bed rest Age 61-74 Arthroscopic surgery Major open surgery (> 45 min) Laparoscopic surgery (> 45 min) Malignancy Confined to bed (> 72 hours) Immobilizing plaster cast Central venous access Age >= 75 History of VTE Family history of VTE Factor V Leiden Prothrombin 28599L Lupus anticoagulant Anticardiolipin antibodies Elevated serum homocysteine Heparin-induced thrombocytopenia Other congenital or acquired thrombophilia Stroke (< 1 month) Elective arthroplasty Hip, pelvis, or leg fracture Acute spinal cord injury (< 1 month) <Josie Brower - 10/26/18 11:00> Point Value = 1 Point Value = 2 Point Value = 3 Point Value = 5 Age 41-60 Minor surgery BMI > 25 kg/m2 Swollen legs Varicose veins or History of unexplained or recurrent spontaneous Oral contraceptives or hormone replacement Sepsis (< 1 month) Serious lung disease, including pneumonia (< 1 month) Abnormal pulmonary function Acute myocardial infarction Congestive heart failure (< 1 month) History of inflammatory bowel disease Medical patient at bed rest Age 61-74 Arthroscopic surgery Major open surgery (> 45 min) Laparoscopic surgery (> 45 min) Malignancy Confined to bed (> 72 hours) Immobilizing plaster cast Central venous access Age >= 75 History of VTE Family history of VTE Factor V Leiden Prothrombin [id number] Lupus anticoagulant Anticardiolipin antibodies Elevated serum homocysteine Heparin-induced thrombocytopenia Other congenital or acquired thrombophilia Stroke (< 1 month) Elective arthroplasty Hip, pelvis, or leg fracture Acute spinal cord injury (< 1 month) <Joselito Best B - 10/25/18 14:02> Prophylaxis Regimen: Total Risk Factor Score Risk Level Prophylaxis Regimen 0-1 Low Early ambulation 2 Moderate Order ONE of the following: *Sequential Compression Device (SCD) *Heparin 5000 units SQ BID 3-4 Higher Order ONE of the following medications: *Heparin 5000 units SQ TID *Enoxaparin/Lovenox 40 mg SQ daily (WT < 150 kg, CrCl > 30 mL/min) *Enoxaparin/Lovenox 30 mg SQ daily (WT < 150 kg, CrCl > 10-29 mL/min) *Enoxaparin/Lovenox 30 mg SQ BID (WT < 150 kg, CrCl > 30 mL/min) AND/OR *Sequential Compression Device (SCD) 5 or more Highest Order ONE of the following medications: *Heparin 5000 units SQ TID (Preferred with Epidurals) *Enoxaparin/Lovenox 40 mg SQ daily (WT < 150 kg, CrCl > 30 mL/min) *Enoxaparin/Lovenox 30 mg SQ daily (WT < 150 kg, CrCl > 10-29 mL/min) *Enoxaparin/Lovenox 30 mg SQ BID (WT < 150 kg, CrCl > 30 mL/min) AND *Sequential Compression Device (SCD) <Josie Brower - 10/26/18 11:00> Total Risk Factor Score Risk Level Prophylaxis Regimen 0-1 Low Early ambulation 2 Moderate Order ONE of the following: *Sequential Compression Device (SCD) *Heparin 5000 units SQ BID 3-4 Higher Order ONE of the following medications: *Heparin 5000 units SQ TID *Enoxaparin/Lovenox 40 mg SQ daily (WT < 150 kg, CrCl > 30 mL/min) *Enoxaparin/Lovenox 30 mg SQ daily (WT < 150 kg, CrCl > 10-29 mL/min) *Enoxaparin/Lovenox 30 mg SQ BID (WT < 150 kg, CrCl > 30 mL/min) AND/OR *Sequential Compression Device (SCD) 5 or more Highest Order ONE of the following medications: *Heparin 5000 units SQ TID (Preferred with Epidurals) *Enoxaparin/Lovenox 40 mg SQ daily (WT < 150 kg, CrCl > 30 mL/min) *Enoxaparin/Lovenox 30 mg SQ daily (WT < 150 kg, CrCl > 10-29 mL/min) *Enoxaparin/Lovenox 30 mg SQ BID (WT < 150 kg, CrCl > 30 mL/min) AND *Sequential Compression Device (SCD) <Joselito Best - 10/25/18 14:02> Assessment and Plan - Assessment (1) Altered mental status Code(s): R41.82 - Altered mental status, unspecified Status: Acute (2) Fall Code(s): W19.XXXA - Unspecified fall, initial encounter Status: Acute (3) Bilateral ankle fractures Code(s): S82.891A - Other fracture of right lower leg, initial encounter for closed fracture; S82.892A - Other fracture of left lower leg, initial encounter for closed fracture Status: Acute (4) Multiple rib fractures Code(s): S22.49XA - Multiple fractures of ribs, unspecified side, initial encounter for closed fracture Status: Acute (5) Afib Code(s): I48.91 - Unspecified atrial fibrillation Status: Acute (6) Congestive heart failure Code(s): I50.9 - Heart failure, unspecified Status: Acute (7) Hypertension Code(s): I10 - Essential (primary) hypertension Status: Acute (8) Nutrition, metabolism, and development symptoms Code(s): R63.8 - Other symptoms and signs concerning food and fluid intake Status: Acute <Josie Brower - 10/26/18 11:00> (1) Altered mental status Code(s): R41.82 - Altered mental status, unspecified Status: Acute Plan: Family reports a several week history of steady decline in patient's mental status Vital signs normal on exam, O2 sat of 95 on room air CBC was unremarkable, CMP with no significant electrolyte abnormalities Elevated ammonia at 59 on admission, will repeat in the morning UA on admission was unremarkable, no ulcers or skin lesions appreciated on physical exam, chest x-ray negative, no obvious signs of infection Patient was answering questions appropriately, however did appear drowsy after her initial dose of morphine Head CT unremarkable Initial EKG, troponins were unremarkable. Will trend Ordering UDS, acetaminophen, alcohol level Consider ABG if patient clinically worsens Consulting palliative care and admission as patient has had steady decline. To discuss goals of care with patient and family (2) Fall Code(s): W19.XXXA - Unspecified fall, initial encounter Status: Acute Plan: Head CT, cervical spine CT, pelvis x-ray unremarkable See plan below for ankle x-ray, chest x-ray findings (3) Bilateral ankle fractures Code(s): S82.891A - Other fracture of right lower leg, initial encounter for closed fracture; S82.892A - Other fracture of left lower leg, initial encounter for closed fracture Status: Acute Plan: Family and patient report a fall while trying to get out of bed this morning Known history of osteoporosis and takes ibandronate monthly Right ankle x-ray showed nondisplaced fracture to the medial malleolus and posterior tibial fracture which extends into the tibiotalar joint, oblique minimally displaced fracture of the distal fibular metaphysis Left ankle x-ray shows nondisplaced fracture of the lateral malleolus Consulted orthopedic surgery on admission Received IV morphine in the ED Ordering scheduled IV Tylenol, [place] pain scale with 1 mg morphine IV for breakthrough (4) Multiple rib fractures Code(s): S22.49XA - Multiple fractures of ribs, unspecified side, initial encounter for closed fracture Status: Acute Plan: Patient's daughter reported that patient hit her chest during her fall this morning Patient's family reports that she endorsed this No overlying bruises/skin changes on physical exam Chest x-ray on admission showed fractures of the fourth, fifth, sixth ribs anteriorly on the left Pain control as above (5) Afib Code(s): I48.91 - Unspecified atrial fibrillation Status: Acute Plan: Known history of A. debbie Takes metoprolol, Cardizem Sinus rhythm on admission Continuing Eliquis (6) Congestive heart failure Code(s): I50.9 - Heart failure, unspecified Status: Acute Plan: Known history of CHF Takes metoprolol, 80 mg Lasix, Cardizem BNP of 434 on admission Will hold IV fluids after she received a 500 mL bolus in the ED Continue with his home medications, no sign of fluid overload on physical exam or chest x-ray (7) Hypertension Code(s): I10 - Essential (primary) hypertension Status: Acute Plan: Reported history of hypertension Takes metoprolol, Cardizem, Lasix Normotensive on admission, will monitor (8) Nutrition, metabolism, and development symptoms Code(s): R63.8 - Other symptoms and signs concerning food and fluid intake Status: Acute Plan: Received 500 mL bolus in the ED, holding further fluids as patient has a known history of CHF and had a BNP elevated on admission Regular diet No significant or joint abnormalities on admission Continuing home Eliquis for DVT prophylaxis <Joselito Best - 10/25/18 19:28> - Assessment and Plan 78-year-old female with a history of CHF, A. fib, hypertension, osteoporosis presented to the emergency room after week history of progressive altered mental status with a fall on the day of presentation. Patient was found to have multiple rib fractures, bilateral ankle fractures. Orthopedic surgery consult on admission. Other imaging including a head CT, cervical spine CT, pelvis x-ray were negative. Consulting palliative care on admission. <Joselito Best - 10/25/18 19:52> - Attending Attestation Patient discussed with resident team - agree with admission, assessment and plan <Josie Brower - 10/26/18 11:00> <Joselito Best - Last Filed: 10/25/18 19:28> (1) Altered mental status Qualifiers: Altered mental status type: unspecified Qualified Code(s): R41.82 - Altered mental status, unspecified (3) Bilateral ankle fractures Qualifiers: Encounter type: initial encounter Fracture type: closed Qualified Code(s): S82.891A - Other fracture of right lower leg, initial encounter for closed fracture; S82.892A - Other fracture of left lower leg, initial encounter for closed fracture (4) Multiple rib fractures Qualifiers: Encounter type: initial encounter Fracture type: closed Laterality: bilateral Qualified Code(s): S22.43XA - Multiple fractures of ribs, bilateral, initial encounter for closed fracture <Josie Brower R - Last Filed: 10/26/18 11:00> (1) Altered mental status Qualifiers: Altered mental status type: unspecified Qualified Code(s): R41.82 - Altered mental status, unspecified (3) Bilateral ankle fractures Qualifiers: Encounter type: initial encounter Fracture type: closed Qualified Code(s): S82.891A - Other fracture of right lower leg, initial encounter for closed fracture; S82.892A - Other fracture of left lower leg, initial encounter for closed fracture (4) Multiple rib fractures Qualifiers: Encounter type: initial encounter Fracture type: closed Laterality: bilateral Qualified Code(s): S22.43XA - Multiple fractures of ribs, bilateral, initial encounter for closed fracture <Joselito Best B - Last Filed: 10/25/18 19:28> (1) Altered mental status Qualifiers: Altered mental status type: unspecified Qualified Code(s): R41.82 - Altered mental status, unspecified (3) Bilateral ankle fractures Qualifiers: Encounter type: initial encounter Fracture type: closed Qualified Code(s): S82.891A - Other fracture of right lower leg, initial encounter for closed fracture; S82.892A - Other fracture of left lower leg, initial encounter for closed fracture (4) Multiple rib fractures Qualifiers: Encounter type: initial encounter Fracture type: closed Laterality: bilateral Qualified Code(s): S22.43XA - Multiple fractures of ribs, bilateral, initial encounter for closed fracture <Josie Brower - Last Filed: 10/26/18 11:00> (1) Altered mental status Qualifiers: Altered mental status type: unspecified Qualified Code(s): R41.82 - Altered mental status, unspecified (3) Bilateral ankle fractures Qualifiers: Encounter type: initial encounter Fracture type: closed Qualified Code(s): S82.891A - Other fracture of right lower leg, initial encounter for closed fracture; S82.892A - Other fracture of left lower leg, initial encounter for closed fracture (4) Multiple rib fractures Qualifiers: Encounter type: initial encounter Fracture type: closed Laterality: bilateral Qualified Code(s): S22.43XA - Multiple fractures of ribs, bilateral, initial encounter for closed fracture
[2018-10-25] MEDS ORDERED: Bisacodyl 10 MG Supp RECTAL PRN (14:46)
[2018-10-25] MEDS ORDERED: Naloxone Inj 0.4 MG/ML Vial IV.PUSH PRN (14:46)
[2018-10-25] MEDS ORDERED: Morphine Inj 4 MG/ML Vial IV.PUSH PRN ×2 (14:46)
[2018-10-25] MEDS ORDERED: Morphine Sulfate Inj 2 MG/ML Vial IV.PUSH PRN ×2 (14:46→19:26)
[2018-10-25] MEDS ORDERED: Ibuprofen 400 MG Tablet PO PRN (14:46)
[2018-10-25] MEDS ORDERED: Baclofen 10 MG Tablet PO PRN (14:53)
[2018-10-25] MEDS ORDERED: Acetaminophen 325 MG Tablet PO PRN (15:22)
--- NOTE | 2018-10-25 16:30 | P.CONPAL ---
Consult Service: Palliative Care Requesting Physician: Joselito Best Reason for Consult: a. To assist with evaluation and management of symptoms including: Pain, altered mental status, debility b. To assist medical decision maker(s) with: better understanding of current medical conditions; weighing benefits/burdens of medical treatment options; making medical treatment decisions. Primary Care Provider: Javi Morales MD History of Present Illness History of Present Illness: Mrs. Jacobson is an 16-year-old female with a past medical history significant for atrial fibrillation on Eliquis, congestive heart failure, coronary artery disease status post stenting, hypertension, hyperlipidemia, history of tobacco use, osteoporosis, and chronic back pain with a spinal stimulator. Patient was brought to the emergency room on 10/25/18 by EMS for evaluation of altered mental status and patient had a fall today. Patient has been confused over the past 4 months in the past 4 days she has been worse than her baseline. She has been agitated and has been refusing to eat or take her medications in the past 4 days. Family reported in the emergency room that patient had an unwitnessed fall trying to get out of bed today at home. Per ER report, patient has not taken any of her medications in the past 4 days but did not take them today. ER course: * Vital signs: Temperature 98.4F, pulse 63, respirations 18, BP 143/85, O2 saturation 94% * Laboratory workup revealing WBC 5.0, hemoglobin 13.1, hematocrit 41.2, platelet count 217, PT 1 3.9, INR 1.4, APTT 29.8, sodium 138, potassium 5.2, BUN /creatinine 25/1.13, random glucose 121, calcium 8.4, AST 65, ALT 23, ammonia 59 , troponin 0.08, BNP 434, total protein 6.5, albumin 2.8 * Chest x-ray revealing cardiomegaly with mild interstitial edema and left upper rib fractures. No pneumothorax. * Cervical spine CT revealing no acute cervical spine abnormality. Multilevel degenerative disc disease. * Head CT revealing no acute process and no significant atrophy. * Left ankle x-ray revealing nondisplaced fracture lateral malleolus extending just above the tibial plafond with associated soft tissue swelling. * Right ankle x-ray revealing nondisplaced fracture through the medial malleolus and posterior tibial fracture which extends into the tibiotalar joint. Oblique minimally displaced fracture of the distal fibular metaphysis. * Pelvis fracture revealing and demineralized bones with no acute abnormality. * Urinalysis negative for leukocyte esterase and nitrates. Orthopedics consulted on 10/25/18 for evaluation and management of patient with bilateral ankle fractures and rib fractures. Palliative care consulted to assist with symptom management and establishment of goals of medical treatment. Patient seen and examined in the room. Patient is hard of hearing. Lethargic and oriented to self, confused to place and situation. Patient does not appear to have insight regarding a medical condition and is not able to weigh burdens and benefits of treatments. Medical decision making at this time will be deferred to patient's daughter Marilee Chou who is patient's healthcare surrogate. Patient is able to follow simple commands with all extremities, with noticeable decreased strength to bilateral lower extremities and left upper extremity. Patient has splints to bilateral lower extremities and a brace to his left wrist. She currently denies pain and is not showing any acute signs of pain or discomfort. Per bedside RN, patient`s daughter Effie Hunt (healthcare surrogate ) has just left the hospital. Telephone call placed to patient's daughter Marilee with no response. Voice message left with palliative care contact information. Palliative care will continue to follow with patient as well as have discussions regarding goals of medical treatment. Function/Cognitive Trajectory: Prior to this hospitalization patient lived at home with her daughter and son. In August, patient was admitted for CHF exacerbation, atrial fibrillation with rapid ventricular response. She was discharged to a SNF ([facility]) for rehabilitation. A fractured her wrist at that time. Family took patient out of the custodial facility due to concern for poor care. Patient was recently in the emergency room on 09/19/18 for shortness of breath and dyspnea and at that time it was reported that patient has been falling at home. Prior to this hospitalization, patient used a walker and wheelchair due to spinal surgery, needed assistance with ADLs. 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 Review of Systems Constitutional: Reports fever(s) Eyes: Denies bulging eyes Ears, Nose, Mouth, and Throat: Reports abnormal hearing (Hard of hearing) Cardiovascular: Reports shortness of breath Respiratory: Reports cough Gastrointestinal: Reports constipation, Denies nausea, Denies vomiting Genitourinary: Denies blood in urine, Denies urinary incontinence Musculoskeletal: Reports back pain, Reports decreased muscle mass Skin/Breast: Reports unusual bruising, Denies skin ulcer Neurologic: Reports abnormal walking (Chronic back pain), Reports confusion, Reports frequent falls, Denies abnormal speech Psychiatric: Reports change in appetite (Decreased appetite), Reports confusion , Reports other (Easily agitated) Endocrine: Denies increased urination Hematologic/Lymphatic: Reports easy bruising Review of systems obtained from partly patient, electronic medical record and clinical observation. . [facility] - History History Provided By: Medical Record - Medical History Medical History: Medical History (Last Updated 10/25/18 @ 17:31 by Silvino Ocampo) Atrial fibrillation Congestive heart failure Coronary artery disease Osteoporosis Chronic pain History of hysterectomy Hypertension Spinal cord stimulator status - Surgical History Surgical History: Surgical History (Last Updated 10/25/18 @ 17:31 by Silvino Ocampo) H/O heart artery stent Previous back surgery - Family History Family History: Family History (Last Updated 10/25/18 @ 16:23 by Silvino Ocampo) Other Alcohol abuse Family history of breast cancer Tuberculosis - Social History I have reviewed the patient's Social History: Yes - Tobacco History Second Hand Smoke Exposure: No Tobacco Use In Past 30 Days: No Smoking Status: Former smoker Tobacco Type: Cigarettes - Alcohol History How Often Do You Have a Drink Containing Alcohol: Unable to Obtain - Substance Use History Substance History: No History of Abuse - Travel History Recent Travel in the [place] Within the Last 8 Weeks: No Recent Travel Out of the Country Within the Last 8 Weeks: No - Immunization History Tetanus Immunization: Unsure Medications and Allergies Active Medications: Active Medications Acetaminophen (Tylenol) 650 mg PO Q6HR PRN PRN Reason: PAIN SCALE 1 TO 2 Al Hydroxide/Mg Hydroxide (Milk Of Valerio Lijason) 30 ml PO Q12H PRN PRN Reason: Mild Constipation Apixaban (Eliquis) 5 mg PO BID [facility] Aspirin (Ecotrin) 81 mg PO DAILY [facility] Atorvastatin Calcium (Lipitor) 20 mg PO HS [facility] Baclofen (Lioresal) 10 mg PO TID PRN PRN Reason: Muscle Pain Bisacodyl (Dulcolax Supp) 10 mg RECTAL DAILY PRN PRN Reason: SEVERE CONSITIPATION Diltiazem HCl (Cardizem Cd 24hr) 240 mg PO DAILY [facility] Furosemide (Lasix) 80 mg PO DAILY [facility] Sodium Chloride (Ns Inj) 1,000 mls @ 75 mls/hr IV.CONT .[id number] [facility] Last Admin: 10/25/18 14:42 Dose: 75 mls/hr Lactulose (Lactulose Liq) 30 ml PO DAILY PRN PRN Reason: SEVERE CONSITIPATION Metoprolol Tartrate (Lopressor) 25 mg PO BID [facility] Morphine Sulfate (Morphine Inj) 0.5 mg IV.PUSH Q3H PRN PRN Reason: PAIN 3-5; IF UABLE TO TAKE PO Morphine Sulfate (Morphine Inj) 1 mg IV.PUSH Q3H PRN PRN Reason: PAIN 6-10;IF UNABLE TO TAKE PO Morphine Sulfate (Morphine Inj) 2 mg IV.PUSH Q3H PRN PRN Reason: BREAKTHROUGH PAIN Naloxone HCl (Narcan Inj) 0.4 mg IV.PUSH UNSCH PRN PRN Reason: SEE LABEL COMMENTS Ondansetron HCl (Zofran Inj) 4 mg IV.PUSH Q6H PRN PRN Reason: NAUSEA OR VOMITING Pantoprazole Sodium (Protonix) 40 mg PO DAILY [facility] Senna/Docusate Sodium (Tammy-Colace) 1 tab PO BID [facility] Sennosides (Senokot) 17.2 mg PO Q12H PRN PRN Reason: Moderate Constipation Sodium Chloride (Ns Flush) 2 ml IV.FLUSH UNSCH PRN PRN Reason: FLUSH AFTER USING IV ACCESS Sodium Chloride (Ns Flush) 2 ml IV.FLUSH BID [facility] Allergies Allergy/AdvReac Type Severity Reaction Status Date / Time adhesive Allergy Severe RASH Verified 09/19/18 12:28 Home Medications Medication Instructions Recorded Confirmed Type apixaban [Eliquis] 5 mg PO BID 08/27/18 10/25/18 History atorvastatin 20 mg PO HS 08/27/18 10/25/18 History ibandronate 150 mg PO QMONTH 08/27/18 10/25/18 History pantoprazole 40 mg PO DAILY 08/27/18 10/25/18 History polyethylene glycol 3350 17 g PO DAILY 08/27/18 10/25/18 History sennosides-docusate sodium 1 tab PO BID PRN 08/27/18 10/25/18 History [Senexon-S] aspirin [Aspir-Low] 81 mg PO DAILY 09/19/18 10/25/18 History baclofen 10 mg PO TID PRN 09/19/18 10/25/18 History furosemide [Lasix] 80 mg PO DAILY 09/19/18 10/25/18 History metoprolol tartrate 25 mg PO BID 10/25/18 10/25/18 History Advance Directives Advance Directives Date on File: 01/25/15 Living Will: Yes Healthcare Surrogate: Yes Health Care Surrogate Name and Number: Marilee Chou [phone] home/ work/[phone] on living Power of Gaming Associate: No Documented care wishes: Patient has a living will which states that if patient is in persistent vegetative state and "if my attending or treating physician and another consulting physician have determined that there is no reasonable medical probability of my recovery from such condition I direct that life-prolonging procedures be withheld or withdrawn when the application of such procedures would serve only to prolong artificially the process of dying, and that I be permitted to naturally with only the administration of medication or the performance of any medical procedure deemed necessary to provide me with comfort or to alleviate pain." . Family/friends goals: No family at bedside during time of visit. No response to telephone call. . Ethical and Legal Issues: None identified at this time. . Physical Exam Vital Signs: Vital Signs - 24 hr 10/25/18 10:55 10/25/18 10:58 10/25/18 12:50 Temperature 98.4 F Pulse Rate 63 82 65 Respiratory Rate 18 Blood Pressure 143/85 H Pulse Oximetry 94 L 95 95 10/25/18 14:42 Temperature Pulse Rate 80 Respiratory Rate 19 Blood Pressure 108/67 Pulse Oximetry 95 I&O: Intake & Output 10/23/18 10/24/18 10/25/18 10/26/18 06:59 06:59 06:59 06:59 Intake Total 500 / 500 Balance 500 / 500 Weight 40.823 kg Physical Exam: CONSTITUTIONAL/GENERAL: This is a an elderly, cachectic ill-looking patient in no acute distress TUBES/LINES/DRAINS: PIV, SKIN: No jaundice, rashes, or lesions. Ecchymoses on upper extremities. No wounds seen anteriorly. Skin temperature appropriate. Not diaphoretic. HEAD: Atraumatic. Normocephalic. EYES: Pupils equal and round and reactive. Extraocular motions intact. No scleral icterus. No injection or drainage. Fundi not examined. ENT: Hearing grossly normal. Nose without bleeding or purulent drainage. Dry lips NECK: Trachea midline. Supple, nontender. CARDIOVASCULAR: Regular rate and rhythm without murmurs, gallops, or rubs. No JVD. Peripheral pulses symmetric. RESPIRATORY/CHEST: Symmetric, unlabored respirations. Diminished breath sounds. No wheezes, rales, or rhonchi. GASTROINTESTINAL: Abdomen soft, non-tender, nondistended. No guarding. Bowel sounds present. GENITOURINARY: Without palpable bladder distension. Grant catheter in place. MUSCULOSKELETAL: Extremities without clubbing, cyanosis. No mottling or clubbing. Splints to bilateral lower extremities and brace to left wrist LYMPHATICS: Did not assess. NEUROLOGICAL: Awake, lethargic and oriented to self only. Confused to time place and situation. Follows commands with all 4 extremities, decreased strength to bilateral lower extremities and left upper extremity. PSYCHIATRIC: No obvious anxiety/depression. no apparent hallucinations or other psychotic thought process. Diagnostic Tests Laboratory: Laboratory Results - last 72 hr 10/25/18 10/25/18 10/25/18 11:07 12:00 12:00 WBC 5.0 RBC 4.45 Hgb 13.1 Hct 41.2 MCV 92.6 MCH 29.4 MCHC 31.7 L RDW 16.4 Plt Count 217 MPV 9.0 Neut % (Auto) 76.8 H Lymph % (Auto) 13.7 [place] % (Auto) 8.4 H Eos % (Auto) 0.6 Baso % (Auto) 0.5 Neut # (Auto) 3.8 Lymph # (Auto) 0.7 L [place] # (Auto) 0.4 Eos # (Auto) 0.0 Baso # (Auto) 0.0 WBC Differential . Differential Comment Auto diff final PT 13.9 H INR 1.4 APTT 29.8 Sodium Potassium Chloride Carbon Dioxide Anion Gap BUN Creatinine Estimated GFR POC Glucose 128 H Random Glucose Lactic Acid Calcium Magnesium Total Bilirubin AST ALT Alkaline Phosphatase Ammonia Total Creatine Kinase CK-MB (CK-2) CK-MB (CK-2) % Troponin I B-Natriuretic Peptide Total Protein Albumin Urine Color Urine Clarity Urine pH Ur Specific [place] Urine Protein Urine Glucose (UA) Urine Ketones Urine Occult Blood Urine Nitrate Urine Bilirubin Urine Urobilinogen Ur Leukocyte Esterase Urine RBC Urine WBC Ur Squamous Epith Cells Urine Bacteria Hyaline Casts Urine Mucus Micro UA Comment Ur Microscopic Review Urine Culture Comments 10/25/18 10/25/18 10/25/18 12:00 12:00 12:00 WBC RBC Hgb Hct MCV MCH MCHC RDW Plt Count MPV Neut % (Auto) Lymph % (Auto) [place] % (Auto) Eos % (Auto) Baso % (Auto) Neut # (Auto) Lymph # (Auto) [place] # (Auto) Eos # (Auto) Baso # (Auto) WBC Differential Differential Comment PT INR APTT Sodium 138 Potassium 5.2 H Chloride 103 Carbon Dioxide 29.6 Anion Gap 5 BUN 25 H Creatinine 1.13 H Estimated GFR 46 L POC Glucose Random Glucose 121 H Lactic Acid 2.2 H Calcium 8.4 L Magnesium 2.2 Total Bilirubin 0.8 AST 65 H ALT 23 Alkaline Phosphatase 119 H Ammonia Total Creatine Kinase 198 H CK-MB (CK-2) Less than 1.0 CK-MB (CK-2) % 0.5 Troponin I 0.08 H B-Natriuretic Peptide Total Protein 6.5 Albumin 2.8 L Urine Color Urine Clarity Urine pH Ur Specific [place] Urine Protein Urine Glucose (UA) Urine Ketones Urine Occult Blood Urine Nitrate Urine Bilirubin Urine Urobilinogen Ur Leukocyte Esterase Urine RBC Urine WBC Ur Squamous Epith Cells Urine Bacteria Hyaline Casts Urine Mucus Micro UA Comment Ur Microscopic Review Urine Culture Comments 10/25/18 10/25/18 10/25/18 12:00 12:30 12:45 WBC RBC Hgb Hct MCV MCH MCHC RDW Plt Count MPV Neut % (Auto) Lymph % (Auto) [place] % (Auto) Eos % (Auto) Baso % (Auto) Neut # (Auto) Lymph # (Auto) [place] # (Auto) Eos # (Auto) Baso # (Auto) WBC Differential Differential Comment PT INR APTT Sodium Potassium Chloride Carbon Dioxide Anion Gap BUN Creatinine Estimated GFR POC Glucose Random Glucose Lactic Acid Calcium Magnesium Total Bilirubin AST ALT Alkaline Phosphatase Ammonia 59 H Total Creatine Kinase CK-MB (CK-2) CK-MB (CK-2) % Troponin I B-Natriuretic Peptide 434 H Total Protein Albumin Urine Color Yellow Urine Clarity Clear Urine pH 7.0 Ur Specific [place] 1.009 Urine Protein Negative Urine Glucose (UA) Negative Urine Ketones Negative Urine Occult Blood Negative Urine Nitrate Negative Urine Bilirubin Negative Urine Urobilinogen Less than 2 Ur Leukocyte Esterase Negative Urine RBC 1 Urine WBC 1 Ur Squamous Epith Cells 3 Urine Bacteria Rare H Hyaline Casts 1 Urine Mucus Few H Micro UA Comment Culture not ind Ur Microscopic Review Not Reportable Urine Culture Comments Culture not ind Result Diagrams: 10/25/18 12:00 10/25/18 12:00 Imaging: Cervical Spine CT 10/25/18 12:15 CONCLUSION: 1. No acute cervical spine abnormality is identified. 2. Multilevel degenerative disc disease similar to the prior examination. Chest X-Ray 10/25/18 12:15 CONCLUSION: Cardiomegaly with mild interstitial edema Left upper rib fractures as described above without pneumothorax. Head CT 10/25/18 12:15 CONCLUSION: 1. Negative for an acute process 2. No significant atrophy . Ankle X-Ray 10/25/18 12:17 CONCLUSION: Nondisplaced fracture lateral malleolus. Pelvis X-Ray 10/25/18 12:17 CONCLUSION: Under mineralized bones. No acute abnormality is identified. Patient/Family Conference Family Conference Location: Bedside Issues Discussed: * Palliative care role, purpose, approach * Additional medical, psychosocial, and spiritual history * Patients general health, functional status, and cognitive changes in the months leading up to the current hospitalization * Patient/family understanding of the current medical problems * Patient/family understanding of prognosis * Patients goals of care as best understood from advance directives and/or conversations and/or values * Current medical treatment options and benefits/burdens of those options * Likely scenarios comparing ongoing aggressive care with a transition to comfort measures only * Questions answered to the best of my ability * Palliative care contact information provided Assessment and Plan - Disease Oriented Problem List (1) Multiple rib fractures (2) Bilateral ankle fractures (3) Atrial fibrillation (4) Congestive heart failure (5) Elevated lactic acid level (6) Hypertension (7) Osteoporosis - Symptom Scale (1) Pain Comment: Patient has chronic back pain and he has a spinal stimulator. Recent left wrist fracture. Diagnostics test revealed bilateral ankle fractures and multiple rib fractures. (2) Altered mental status 0-10 Scale: Unable to quantify Comment: Patient has had progressive altered mental status (AMS). Came in for further evaluation of AMS and fall. (3) Debility 0-10 Scale: Unable to quantify Comment: Progressive. Ongoing multiple comorbidities and debility. Pertinent Non-Medical Issues: Psychosocial: Patient is . She has 2 adult daughters. Patient worked at [employer] in [place]-now retired. Spiritual: Patient is Mosque Legal: Patient has a living will. Ethical issues impacting care: None identified at this time. Important Contacts: Healthcare surrogate -daughter- Marilee JacobsonQlXsnq-[phone] home/[phone] work/[phone] on living will Daughter-Matt Mcdaniel-[phone] home/[phone] work Prognosis: Mrs. Jacobson is an 16-year-old female with a past medical history significant for atrial fibrillation on Eliquis, congestive heart failure, hypertension, hyperlipidemia, osteoporosis, and chronic back pain with a spinal stimulator. Patient was brought to the emergency room on 10/25/18 by EMS for evaluation of altered mental status and patient had a fall today. Clinical course complicated with bilateral ankle fractures and multiple rib fractures. Given ongoing multiple comorbidities and debility, patient remains at high risk for further complications, deterioration and decline. . Code Status: No Code DNR Plan: PLAN: Legal decision maker: Patient has altered mental status. She is currently not able to participate in medical decision making and it is not known whether she will be able to regain this capacity. Patient has a living will with designated healthcare surrogate named as Marilee Jacobson. Goals: Aggressive short of no code. Pending discussion with healthcare surrogate Marilee Chou. CODE STATUS: No code DNR SYMPTOMS: * Pain:Patient has chronic back pain and he has a spinal stimulator. Recent left wrist fracture. Diagnostics test revealed bilateral ankle fractures and multiple rib fractures. Patient takes Percocet at home. Patient has baclofen 10 mg po every 8 hours prn; morphine sulfate 0.5 mg - 1 mg IV push every 3 hours prn and 2 mg IVP every 3 hours for breakthrough pain. Patient currently denying pain and not showing any signs of acute discomfort or distress. Pain medication appears adequate at this time. * Altered mental status: Patient has baseline of confusion but he has progressively worsened in the past [address] was negative for any acute processes. Unsure of etiology of altered mental status at this time. * Debility: Progressive. Patient has multiple ongoing comorbidities. She was recently in rehab after a wrist fracture and CHF. She is also had multiple falls at home. Palliative care will continue to follow the patient during hospital course as condition evolves, to assist patient/decision-maker with understanding of their medical conditions, weighing benefits/burdens of treatment options, for clarification of goals of treatment. Additionally will assist with any symptoms of palliative concern Appreciation Thank you for the opportunity to participate in the care of Sonia Jacobson. Attestation Attestation: To help prompt me to consider important information that might be impacting today's encounter and assessment, information from prior notes written by myself or my colleagues may have been "brought forward" into today's note. My signature on this note, however, is an attestation that I personally performed the exam, history, and/or decision-making noted today, and, unless otherwise indicated, the interactions with patient, family, and staff as well as the review of records all occurred today. I also attest that the listed assessment and stated plan reflect my best clinical judgment today based on the combination of historical information, prior notes, and today's exam/ interactions. When time spent is documented, it refers only to time spent today by the signer, or if indicated, combined time spent today by collaborating physician/nurse practitioner.
[2018-10-25] MEDS: Senna/Docusate Sodium 8.6/50 MG Tablet PO SCH (20:49)
[2018-10-25] MEDS: Metoprolol Tartrate 25 MG Tablet PO SCH (20:49)
[2018-10-26 05:05] LABS: Amphetamine Screen,Urine Neg (Neg); Barbiturate Screen,Urine Neg (Neg); Cannabinoid Screen,Urine Neg (Neg); Cocaine Screen,Urine Neg (Neg)
[2018-10-26 05:07] LABS: Opiate Screen,Urine Neg (Neg)
[2018-10-26 07:41] LABS: Baso % (Auto) 0.2 % (0.0-2.0); Hematocrit 39.4 % (35.0-46.0); Hemoglobin 12.5 gm/dL (11.6-15.3); Lymph # (Auto) 0.8 th/mm3 (1.0-4.8); Lymph % (Auto) 10.2 % (9.0-44.0); Mean Corpuscular HGB Conc 31.8 % (32.0-36.0); Mean Corpuscular Hemoglobin 29.3 pg (27.0-34.0); Mean Corpuscular Volume 92.1 fL (80.0-100.0); Mean Platelet Volume 8.3 fL (7.0-11.0); Mono # (Auto) 0.8 th/mm3 (0.0-0.9); Mono % (Auto) 9.5 % (0.0-8.0); Neut # (Auto) 6.6 th/mm3 (1.8-7.7); Neut % (Auto) 80.1 % (16.0-70.0); Platelet Count 183 th/mm3 (150-450); Red Blood Count 4.27 mil/mm3 (4.00-5.30); Red Cell Distribution Width 15.9 % (11.6-17.2); White Blood Count 8.2 th/mm3 (4.0-11.0)
[2018-10-26 08:00] LABS: Alanine Aminotransferase 17 U/L (10-53); Albumin 2.8 g/dL (3.4-5.0); Alkaline Phosphatase 111 U/L (45-117); Anion Gap 9 meq/L (5-15); Aspartate Aminotransferase 20 U/L (15-37); Blood Urea Nitrogen 22 mg/dL (7-18); Calcium 8.5 mg/dL (8.5-10.1); Carbon Dioxide 27.4 meq/L (21.0-32.0); Chloride 108 meq/L (98-107); Glomerular Filtration Rate 63 mL/min (>89); Glucose,Random 124 mg/dL (74-106); Potassium 3.2 meq/L (3.5-5.1); Sodium 144 meq/L (136-145)
[2018-10-26] MEDS: Furosemide 80 MG Tablet PO SCH (08:54)
[2018-10-26] MEDS: dilTIAZem CD 240 MG Capsule PO SCH (08:54)
[2018-10-26] MEDS: Senna/Docusate Sodium 8.6/50 MG Tablet PO SCH ×2 (08:54→20:54)
[2018-10-26] MEDS: Metoprolol Tartrate 25 MG Tablet PO SCH ×2 (08:54→20:53)
--- NOTE | 2018-10-26 11:02 | P.PNFP ---
Subjective Interval history: Patient was lying in bed this morning, she was unable to be aroused to the medical team could not answer any questions. <EkoRebecca U - 10/26/18 12:34> Results - Labs Result diagrams: 10/27/18 06:34 10/27/18 06:34 <Josie Bell R - 10/27/18 10:16> Abnormal lab results 10/27/18 10/27/18 Range/Units 06:34 06:34 RBC 3.80 L (4.00-5.30) mil/mm3 Hgb 11.2 L (11.6-15.3) gm/dL Hct 34.1 L (35.0-46.0) % Neut % (Auto) 74.9 H (16.0-70.0) % [place] % (Auto) 8.6 H (0.0-8.0) % BUN 27 H (7-18) mg/dL Creatinine 1.22 H (0.50-1.00) mg/dL Estimated GFR 42 L (>89) mL/min Random Glucose 165 H (74-106) mg/dL Calcium 7.8 L (8.5-10.1) mg/dL Total Protein 5.8 L (6.4-8.2) g/dL Albumin 2.4 L (3.4-5.0) g/dL Short CBC 10/27/18 Range/Units 06:34 WBC 7.1 (4.0-11.0) th/mm3 Hgb 11.2 L (11.6-15.3) gm/dL Hct 34.1 L (35.0-46.0) % Plt Count 185 (150-450) th/mm3 BMP 10/27/18 06:34 Sodium 138 Potassium 3.8 Chloride 100 D Carbon Dioxide 26.9 BUN 27 H Creatinine 1.22 H Calcium 7.8 L Liver Function 10/27/18 Range/Units 06:34 Total Bilirubin 0.5 (0.2-1.0) mg/dL AST 20 (15-37) U/L ALT 17 (10-53) U/L Alkaline Phosphatase 100 (45-117) U/L Albumin 2.4 L (3.4-5.0) g/dL <Josie Bell R - 10/27/18 10:16> Abnormal lab results 12/07/18 12/07/18 12/07/18 Range/Units 11:07 12:00 12:00 MCHC 31.7 L (32.0-36.0) % Neut % (Auto) 76.8 H (16.0-70.0) % [place] % (Auto) 8.4 H (0.0-8.0) % Lymph # (Auto) 0.7 L (1.0-4.8) th/mm3 PT 13.9 H (9.8-11.6) sec Potassium (3.5-5.1) meq/L Chloride (98-107) meq/L BUN (7-18) mg/dL Creatinine (0.50-1.00) mg/dL Estimated GFR (>89) mL/min POC Glucose 128 H (68-110) mg/dl Random Glucose (74-106) mg/dL Lactic Acid (0.4-2.0) mmol/L Calcium (8.5-10.1) mg/dL Total Bilirubin (0.2-1.0) mg/dL AST (15-37) U/L Alkaline Phosphatase (45-117) U/L Ammonia (11-32) mcmol/L Total Creatine Kinase (26-192) U/L Troponin I (0.02-0.05) ng/mL B-Natriuretic Peptide (0-100) pg/mL Total Protein (6.4-8.2) g/dL Albumin (3.4-5.0) g/dL Urine Bacteria (None) /hpf Urine Mucus (Occasional) /lpf Acetaminophen (10.0-30.0) mcg/mL 10/25/18 10/25/18 10/25/18 Range/Units 12: 12:00 12:00 MCHC (32.0-36.0) % Neut % (Auto) (16.0-70.0) % [place] % (Auto) (0.0-8.0) % Lymph # (Auto) (1.0-4.8) th/mm3 PT (9.8-11.6) sec Potassium 5.2 H (3.5-5.1) meq/L Chloride (98-107) meq/L BUN 25 H (7-18) mg/dL Creatinine 1.13 H (0.50-1.00) mg/dL Estimated GFR 46 L (>89) mL/min POC Glucose (68-110) mg/dl Random Glucose 121 H (74-106) mg/dL Lactic Acid 2.2 H (0.4-2.0) mmol/L Calcium 8.4 L (8.5-10.1) mg/dL Total Bilirubin (0.2-1.0) mg/dL AST 65 H (15-37) U/L Alkaline Phosphatase 119 H (45-117) U/L Ammonia (11-32) mcmol/L Total Creatine Kinase 198 H (26-192) U/L Troponin I 0.08 H (0.02-0.05) ng/mL B-Natriuretic Peptide (0-100) pg/mL Total Protein (6.4-8.2) g/dL Albumin 2.8 L (3.4-5.0) g/dL Urine Bacteria (None) /hpf Urine Mucus (Occasional) /lpf Acetaminophen (10.0-30.0) mcg/mL 10/25/18 10/25/18 10/25/18 Range/Units 12:00 12:30 12:45 MCHC (32.0-36.0) % Neut % (Auto) (16.0-70.0) % [place] % (Auto) (0.0-8.0) % Lymph # (Auto) (1.0-4.8) th/mm3 PT (9.8-11.6) sec Potassium (3.5-5.1) meq/L Chloride (98-107) meq/L BUN (7-18) mg/dL Creatinine (0.50-1.00) mg/dL Estimated GFR (>89) mL/min POC Glucose (68-110) mg/dl Random Glucose (74-106) mg/dL Lactic Acid (0.4-2.0) mmol/L Calcium (8.5-10.1) mg/dL Total Bilirubin (0.2-1.0) mg/dL AST (15-37) U/L Alkaline Phosphatase (45-117) U/L Ammonia 59 H (11-32) mcmol/L Total Creatine Kinase (26-192) U/L Troponin I (0.02-0.05) ng/mL B-Natriuretic Peptide 434 H (0-100) pg/mL Total Protein (6.4-8.2) g/dL Albumin (3.4-5.0) g/dL Urine Bacteria Rare H (None) /hpf Urine Mucus Few H (Occasional) /lpf Acetaminophen (10.0-30.0) mcg/mL 10/25/18 10/25/18 10/25/18 Range/Units 15:30 15:30 22:09 MCHC (32.0-36.0) % Neut % (Auto) (16.0-70.0) % [place] % (Auto) (0.0-8.0) % Lymph # (Auto) (1.0-4.8) th/mm3 PT (9.8-11.6) sec Potassium (3.5-5.1) meq/L Chloride (98-107) meq/L BUN (7-18) mg/dL Creatinine (0.50-1.00) mg/dL Estimated GFR (>89) mL/min POC Glucose (68-110) mg/dl Random Glucose (74-106) mg/dL Lactic Acid (0.4-2.0) mmol/L Calcium (8.5-10.1) mg/dL Total Bilirubin (0.2-1.0) mg/dL AST (15-37) U/L Alkaline Phosphatase (45-117) U/L Ammonia (11-32) mcmol/L Total Creatine Kinase (26-192) U/L Troponin I 0.07 H 0.08 H (0.02-0.05) ng/mL B-Natriuretic Peptide (0-100) pg/mL Total Protein (6.4-8.2) g/dL Albumin (3.4-5.0) g/dL Urine Bacteria (None) /hpf Urine Mucus (Occasional) /lpf Acetaminophen Less than 2.0 L (10.0-30.0) mcg/mL 10/26/18 10/26/18 Range/Units 06:42 06:42 MCHC 31.8 L (32.0-36.0) % Neut % (Auto) 80.1 H (16.0-70.0) % [place] % (Auto) 9.5 H (0.0-8.0) % Lymph # (Auto) 0.8 L (1.0-4.8) th/mm3 PT (9.8-11.6) sec Potassium 3.2 L D (3.5-5.1) meq/L Chloride 108 H (98-107) meq/L BUN 22 H (7-18) mg/dL Creatinine (0.50-1.00) mg/dL Estimated GFR 63 L (>89) mL/min POC Glucose (68-110) mg/dl Random Glucose 124 H (74-106) mg/dL Lactic Acid (0.4-2.0) mmol/L Calcium (8.5-10.1) mg/dL Total Bilirubin 1.1 H (0.2-1.0) mg/dL AST (15-37) U/L Alkaline Phosphatase (45-117) U/L Ammonia (11-32) mcmol/L Total Creatine Kinase (26-192) U/L Troponin I (0.02-0.05) ng/mL B-Natriuretic Peptide (0-100) pg/mL Total Protein 6.0 L (6.4-8.2) g/dL Albumin 2.8 L (3.4-5.0) g/dL Urine Bacteria (None) /hpf Urine Mucus (Occasional) /lpf Acetaminophen (10.0-30.0) mcg/mL Short CBC 10/25/18 10/26/18 Range/Units 12:00 06:42 WBC 5.0 8.2 D (4.0-11.0) th/mm3 Hgb 13.1 12.5 (11.6-15.3) gm/dL Hct 41.2 39.4 (35.0-46.0) % Plt Count 217 183 (150-450) th/mm3 BMP 10/25/18 10/26/18 12:00 06:42 Sodium 138 144 Potassium 5.2 H 3.2 L D Chloride 103 108 H Carbon Dioxide 29.6 27.4 BUN 25 H 22 H Creatinine 1.13 H 0.86 Calcium 8.4 L 8.5 Cardiac Enzymes 10/25/18 10/25/18 10/25/18 Range/Units 12:00 12:00 15:30 Total Creatine Kinase 198 H (26-192) U/L CK-MB (CK-2) Less than 1.0 (0.5-3.6) ng/mL Troponin I 0.08 H 0.07 H (0.02-0.05) ng/mL 10/25/18 10/25/18 Range/Units 15:30 22:09 Total Creatine Kinase (26-192) U/L CK-MB (CK-2) (0.5-3.6) ng/mL Troponin I Cancelled 0.08 H (0.02-0.05) ng/mL Liver Function 10/25/18 10/26/18 Range/Units 12:00 06:42 Total Bilirubin 0.8 1.1 H (0.2-1.0) mg/dL AST 65 H 20 (15-37) U/L ALT 23 17 (10-53) U/L Alkaline Phosphatase 119 H 111 (45-117) U/L Albumin 2.8 L 2.8 L (3.4-5.0) g/dL Urine 10/25/18 Range/Units 12:30 Urine Color Yellow (Yellw/Straw) Urine Clarity Clear (Clear) Urine pH 7.0 (5.0-8.5) Ur Specific [place] 1.009 (1.002-1.035) Urine Protein Negative (Neg-Trace) mg/dL Urine Glucose (UA) Negative (Negative) mg/dL <Eko,Rebecca U - 10/26/18 11:02> - Imaging Impressions Cervical Spine CT 10/25/18 12:15 CONCLUSION: 1. No acute cervical spine abnormality is identified. 2. Multilevel degenerative disc disease similar to the prior examination. Chest X-Ray 10/25/18 12:15 CONCLUSION: Cardiomegaly with mild interstitial edema Left upper rib fractures as described above without pneumothorax. Head CT 10/25/18 12:15 CONCLUSION: 1. Negative for an acute process 2. No significant atrophy . Ankle X-Ray 10/25/18 12:17 CONCLUSION: Nondisplaced fracture lateral malleolus. Ankle X-Ray 10/25/18 12:17 CONCLUSION: 1. Nondisplaced fracture through the medial malleolus and posterior tibial fracture which extends into the tibiotalar joint. 2. Oblique minimally displaced fracture of the distal fibular metaphysis. Pelvis X-Ray 10/25/18 12:17 CONCLUSION: Under mineralized bones. No acute abnormality is identified. <EkoRebecca U - 10/26/18 11:02> Physical Exam Vital signs: Vital Signs 10/26/18 12:00 10/26/18 16:00 10/26/18 20:00 Temperature 98 F 97.5 F L 98 F Pulse Rate 102 H 94 H 138 H Respiratory Rate 16 16 18 Blood Pressure 109/63 94/60 L 107/56 L Pulse Oximetry 95 97 95 10/27/18 00:00 10/27/18 04:00 10/27/18 08:00 Temperature 97.1 F L 98.1 F 97.6 F Pulse Rate 81 97 H 144 H Respiratory Rate 19 17 17 Blood Pressure 113/70 90/57 L Pulse Oximetry 94 L 95 96 Intake & Output 10/26/18 10/27/18 10/27/18 18:59 06:59 18:59 Intake Total 690 / 690 420 / 420 Output Total 400 / 400 Balance 290 / 290 420 / 420 Weight 46.5 kg Intake: IV 210 / 210 Ofirmev Inj 1,000 mg In 100 ml 210 / 210 @ 400 mls/hr IV.SIG Q6H [facility] Rx# :[id number] Oral 480 / 480 420 / 420 Output: Urine 400 / 400 Other: # Voids 2 # Bowel Movements 1 <Josie Bell R - 10/27/18 10:16> Vital Signs 10/25/18 12:50 10/25/18 14:42 10/25/18 16:30 Temperature 98.1 F Pulse Rate 65 80 77 Respiratory Rate 19 18 Blood Pressure 108/67 150/70 H Pulse Oximetry 95 95 94 L 10/25/18 20:00 10/26/18 00:00 10/26/18 00:48 Temperature 99.1 F 97.2 F L Pulse Rate 147 H 78 Respiratory Rate 17 16 Blood Pressure 132/58 L 111/74 Pulse Oximetry 91 L 94 L 93 L 10/26/18 04:00 10/26/18 08:00 10/26/18 08:30 Temperature 97.6 F 98.1 F Pulse Rate 84 136 H Respiratory Rate 16 16 Blood Pressure 138/69 94/67 L Pulse Oximetry 92 L 98 98 10/26/18 09:00 Temperature Pulse Rate 127 H Respiratory Rate Blood Pressure Pulse Oximetry Intake & Output 10/25/18 10/26/18 10/26/18 18:59 06:59 18:59 Intake Total 500 / 500 1200 / 1200 110 / 110 Output Total 150 / 150 Balance 500 / 500 1050 / 1050 110 / 110 Weight 40.823 kg 44 kg Intake: IV 500 / 500 1200 / 1200 110 / 110 NS Inj 1,000 ML @ 75 mls/hr IV. 1000 / 1000 CONT .[id number] [facility] Rx#:[id number] Ofirmev Inj 1,000 mg In 100 ml 200 / 200 110 / 110 @ 400 mls/hr IV.SIG Q6H [facility] Rx# :[id number] NS Inj 500 ML @ Wide Open IV. 500 / 500 SIG BOLUS ONE Rx#:[id number] Oral 0 / 0 Output: Urine 150 / 150 Other: # Bowel Movements 0 <EkLeigh cazaresRebecca U - 10/26/18 11:02> Narrative: GENERAL: Elderly white female lying in bed very sleepy, difficult to arouse SKIN: Warm and dry. HEAD: Atraumatic. Normocephalic. EYES: Pupils equal and round. No scleral icterus. No injection or drainage. ENT: No nasal bleeding or discharge. Mucous membranes pink and moist. NECK: Trachea midline. No JVD. CARDIOVASCULAR: Regular rate and rhythm. No murmurs appreciated RESPIRATORY: No accessory muscle use. Clear to auscultation. Breath sounds equal bilaterally. GASTROINTESTINAL: Abdomen soft, non-tender, nondistended. MUSCULOSKELETAL: Extremities without clubbing, cyanosis, or edema. Hard splints of the bilateral lower extremities from the mid tibia down. Adequate capillary refill in the toes, sensation intact NEUROLOGICAL: Drowsy. Normal speech. <Rebecca Zabala U - 10/26/18 12:34> Assessment and Plan - Assessment (1) Altered mental status Code(s): R41.82 - Altered mental status, unspecified Status: Acute (2) Fall Code(s): W19.XXXA - Unspecified fall, initial encounter Status: Acute (3) Bilateral ankle fractures Code(s): S82.891A - Other fracture of right lower leg, initial encounter for closed fracture; S82.892A - Other fracture of left lower leg, initial encounter for closed fracture Status: Acute (4) Multiple rib fractures Code(s): S22.49XA - Multiple fractures of ribs, unspecified side, initial encounter for closed fracture Status: Acute (5) Afib Code(s): I48.91 - Unspecified atrial fibrillation Status: Acute (6) Congestive heart failure Code(s): I50.9 - Heart failure, unspecified Status: Acute (7) Hypertension Code(s): I10 - Essential (primary) hypertension Status: Acute (8) Nutrition, metabolism, and development symptoms Code(s): R63.8 - Other symptoms and signs concerning food and fluid intake Status: Acute <Josie Bell - 10/27/18 10:16> (1) Altered mental status Code(s): R41.82 - Altered mental status, unspecified Status: Acute Plan: Family reports a several week history of steady decline in patient's mental status Initial workup was negative except for ammonia Initial ammonia was elevated at 59 on admission, wnl at 16 this am Palliative care was consulted to discuss goals of care with patient and family had steady decline * Pending discussion with healthcare surrogate Marilee Chou * No code DNR (2) Fall Code(s): W19.XXXA - Unspecified fall, initial encounter Status: Acute Plan: Head CT, cervical spine CT, pelvis x-ray unremarkable See plan below for ankle x-ray, chest x-ray findings (3) Bilateral ankle fractures Code(s): S82.891A - Other fracture of right lower leg, initial encounter for closed fracture; S82.892A - Other fracture of left lower leg, initial encounter for closed fracture Status: Acute Plan: Known history of osteoporosis and takes ibandronate monthly Right ankle x-ray showed nondisplaced fracture to the medial malleolus and posterior tibial fracture which extends into the tibiotalar joint, oblique minimally displaced fracture of the distal fibular metaphysis Left ankle x-ray shows nondisplaced fracture of the lateral malleolus Orthopedic surgery consult pending Continue IV Tylenol Hold [place] pain scale with 1 mg morphine IV for breakthrough due to sedation (4) Multiple rib fractures Code(s): S22.49XA - Multiple fractures of ribs, unspecified side, initial encounter for closed fracture Status: Acute Plan: Patient's daughter reported that patient hit her chest during her fall this morning Patient's family reports that she endorsed this No overlying bruises/skin changes on physical exam Chest x-ray on admission showed fractures of the fourth, fifth, sixth ribs anteriorly on the left Pain control as above (5) Afib Code(s): I48.91 - Unspecified atrial fibrillation Status: Acute Plan: Known history of A. fib Takes metoprolol, Cardizem Sinus rhythm on admission Continuing Eliquis (6) Congestive heart failure Code(s): I50.9 - Heart failure, unspecified Status: Acute Plan: Known history of CHF Takes metoprolol, 80 mg Lasix, Cardizem BNP of 434 on admission Continue with his home medications, no sign of fluid overload on physical exam or chest x-ray (7) Hypertension Code(s): I10 - Essential (primary) hypertension Status: Acute Plan: Reported history of hypertension Takes metoprolol, Cardizem, Lasix Normotensive on admission, will monitor (8) Nutrition, metabolism, and development symptoms Code(s): R63.8 - Other symptoms and signs concerning food and fluid intake Status: Acute Plan: Oral fluids Regular diet No significant or joint abnormalities on admission Continuing home Eliquis for DVT prophylaxis <Rebecca Zabala U - 10/26/18 12:11> - Assessment and Plan 78-year-old female with a history of CHF, A. fib, hypertension, osteoporosis presented to the emergency room after week history of progressive altered mental status with a fall on the day of presentation. Patient was found to have multiple rib fractures, bilateral ankle fractures. Orthopedic surgery consulted for management recommended. Other imaging including a head CT, cervical spine CT, pelvis x-ray were negative. Palliative care consulted to clarify goals of care. <Rebecca Zabala U - 10/26/18 12:34> Discussed Condition With: Seen and examined with Dr. Bell-attending, Dr. Blakely-PGY 1 <Rebecca Zabala U - 10/26/18 12:34> Discharge Planning: Pending some resolution of altered mental status, palliative care recommendations, orthopedic surgery recommendations. <Rebecca Zabala U - 10/26/18 12:34> - Attending Attestation Pt seen and dw the resident team. Agree with the assessment and plan. <Josie Bell R - 10/27/18 10:16> <Rebecca Zabala U - Last Filed: 10/26/18 12:11> (1) Altered mental status Qualifiers: Altered mental status type: unspecified Qualified Code(s): R41.82 - Altered mental status, unspecified (3) Bilateral ankle fractures Qualifiers: Encounter type: initial encounter Fracture type: closed Qualified Code(s): S82.891A - Other fracture of right lower leg, initial encounter for closed fracture; S82.892A - Other fracture of left lower leg, initial encounter for closed fracture (4) Multiple rib fractures Qualifiers: Encounter type: initial encounter Fracture type: closed Laterality: bilateral Qualified Code(s): S22.43XA - Multiple fractures of ribs, bilateral, initial encounter for closed fracture <Josie Bell R - Last Filed: 10/27/18 10:16> (1) Altered mental status Qualifiers: Altered mental status type: unspecified Qualified Code(s): R41.82 - Altered mental status, unspecified (3) Bilateral ankle fractures Qualifiers: Encounter type: initial encounter Fracture type: closed Qualified Code(s): S82.891A - Other fracture of right lower leg, initial encounter for closed fracture; S82.892A - Other fracture of left lower leg, initial encounter for closed fracture (4) Multiple rib fractures Qualifiers: Encounter type: initial encounter Fracture type: closed Laterality: bilateral Qualified Code(s): S22.43XA - Multiple fractures of ribs, bilateral, initial encounter for closed fracture <Rebecca Zabala U - Last Filed: 10/26/18 12:11> (1) Altered mental status Qualifiers: Altered mental status type: unspecified Qualified Code(s): R41.82 - Altered mental status, unspecified (3) Bilateral ankle fractures Qualifiers: Encounter type: initial encounter Fracture type: closed Qualified Code(s): S82.891A - Other fracture of right lower leg, initial encounter for closed fracture; S82.892A - Other fracture of left lower leg, initial encounter for closed fracture (4) Multiple rib fractures Qualifiers: Encounter type: initial encounter Fracture type: closed Laterality: bilateral Qualified Code(s): S22.43XA - Multiple fractures of ribs, bilateral, initial encounter for closed fracture <Josie Bell R - Last Filed: 10/27/18 10:16> (1) Altered mental status Qualifiers: Altered mental status type: unspecified Qualified Code(s): R41.82 - Altered mental status, unspecified (3) Bilateral ankle fractures Qualifiers: Encounter type: initial encounter Fracture type: closed Qualified Code(s): S82.891A - Other fracture of right lower leg, initial encounter for closed fracture; S82.892A - Other fracture of left lower leg, initial encounter for closed fracture (4) Multiple rib fractures Qualifiers: Encounter type: initial encounter Fracture type: closed Laterality: bilateral Qualified Code(s): S22.43XA - Multiple fractures of ribs, bilateral, initial encounter for closed fracture
[2018-10-26] MEDS ORDERED: Potassium Chloride 10 MEQ ER Capsule PO ONE (12:21)
--- NOTE | 2018-10-26 14:24 | P.PNADD ---
Addendum to Inpatient Note Additional information: Patient seen at bedside this afternoon. She states that she still has leg pain. Feels crappy this afternoon. She recalls how she broke her ankles: says that she was trying to get off of the bed and and that her legs "gave out" and she fell on the ground. She states that she feels safe at home and is well cared for. She is unable to walk steadily without assistance and would like help with that. She denies any chest pain, shortness of breath or abdominal pain today. She is urinating and defecation without any complications. All questions were answered at bedside.
--- NOTE | 2018-10-26 16:32 | P.CONOP ---
[facility] Orthopedics Consult Note - [facility] Consult date: 10/26/18 Consult reason: fracture Chief complaint: Altered mental status,elevated troponin,elevated Narrative: The patient is 78-year-old female who sustained a fall injuring both of her ankles. She was unable to bear weight. She is brought now [facility] were x-ray workup revealed bilateral ankle fractures. She She also suffered 2 rib fractures on the left chest wall. She is in quite a bit of pain with any movement. She is evaluated with her daughter at the bedside. Review of Systems All other systems reviewed negative except as stated in [facility] - History History Provided By: Family Member - Medical History Medical History: Medical History (Last Reviewed 10/26/18 @ 16:25 by Darrius Marquis MD) Atrial fibrillation Congestive heart failure Coronary artery disease Osteoporosis Chronic pain History of hysterectomy Hypertension Spinal cord stimulator status - Surgical History Surgical History: Surgical History (Last Reviewed 10/26/18 @ 16:25 by Darrius Marquis MD) H/O heart artery stent Previous back surgery - Family History Family History: Family History (Last Reviewed 10/26/18 @ 16:25 by Darrius Marquis MD) Other Alcohol abuse Family history of breast cancer Tuberculosis - Tobacco History Second Hand Smoke Exposure: No Tobacco Use In Past 30 Days: No Smoking Status: Former smoker Tobacco Type: Cigarettes - Alcohol History How Often Do You Have a Drink Containing Alcohol: Unable to Obtain - Substance Use History Substance History: No History of Abuse - Travel History Recent Travel in the [place] Within the Last 8 Weeks: No Recent Travel Out of the Country Within the Last 8 Weeks: No - Immunization History Tetanus Immunization: Unsure Hx Influenza Vaccine This Season: Yes Medications and Allergies Active Medications: Active Medications Acetaminophen (Tylenol) 650 mg PO Q6HR PRN PRN Reason: PAIN SCALE 1 TO 2 Hydrocodone Bitart/Acetaminophen ([place] 10/325) 1 tab PO Q4H PRN PRN Reason: PAIN SCALE 6 TO 10 Hydrocodone Bitart/Acetaminophen ([place] 5/325) 1 tab PO Q4H PRN PRN Reason: PAIN SCALE 3 TO 5 Al Hydroxide/Mg Hydroxide (Milk Of Magnesia Liq) 30 ml PO Q12H PRN PRN Reason: Mild Constipation Apixaban (Eliquis) 5 mg PO BID [facility] Last Admin: 10/26/18 08:55 Dose: 5 mg Aspirin (Ecotrin) 81 mg PO DAILY [facility] Last Admin: 10/26/18 08:54 Dose: 81 mg Atorvastatin Calcium (Lipitor) 20 mg PO HS [facility] Last Admin: 10/25/18 20:49 Dose: 20 mg Baclofen (Lioresal) 10 mg PO TID PRN PRN Reason: Muscle Pain Bisacodyl (Dulcolax Supp) 10 mg RECTAL DAILY PRN PRN Reason: SEVERE CONSITIPATION Diltiazem HCl (Cardizem Cd 24hr) 240 mg PO DAILY [facility] Last Admin: 10/26/18 08:54 Dose: 240 mg Furosemide (Lasix) 80 mg PO DAILY [facility] Last Admin: 10/26/18 08:54 Dose: 80 mg Lactulose (Lactulose Liq) 30 ml PO DAILY PRN PRN Reason: SEVERE CONSITIPATION Metoprolol Tartrate (Lopressor) 25 mg PO BID [facility] Last Admin: 10/26/18 08:54 Dose: 25 mg Morphine Sulfate (Morphine Inj) 1 mg IV.PUSH Q3H PRN PRN Reason: BREAKTHROUGH PAIN Naloxone HCl (Narcan Inj) 0.4 mg IV.PUSH UNSCH PRN PRN Reason: SEE LABEL COMMENTS Ondansetron HCl (Zofran Inj) 4 mg IV.PUSH Q6H PRN PRN Reason: NAUSEA OR VOMITING Pantoprazole Sodium (Protonix) 40 mg PO DAILY [facility] Last Admin: 10/26/18 08:56 Dose: Not Given Senna/Docusate Sodium (Tammy-Colace) 1 tab PO BID [facility] Last Admin: 10/26/18 08:54 Dose: 1 tab Sennosides (Senokot) 17.2 mg PO Q12H PRN PRN Reason: Moderate Constipation Sodium Chloride (Ns Flush) 2 ml IV.FLUSH UNSCH PRN PRN Reason: FLUSH AFTER USING IV ACCESS Sodium Chloride (Ns Flush) 2 ml IV.FLUSH BID [facility] Last Admin: 10/26/18 08:56 Dose: 2 ml Allergies Allergy/AdvReac Type Severity Reaction Status Date / Time adhesive Allergy Severe RASH Verified 09/19/18 12:28 Home Medications Medication Instructions Recorded Confirmed Type apixaban [Eliquis] 5 mg PO BID 08/27/18 10/25/18 History atorvastatin 20 mg PO HS 08/27/18 10/25/18 History ibandronate 150 mg PO QMONTH 08/27/18 10/25/18 History pantoprazole 40 mg PO DAILY 08/27/18 10/25/18 History polyethylene glycol 3350 17 g PO DAILY 08/27/18 10/25/18 History sennosides-docusate sodium 1 tab PO BID PRN 08/27/18 10/25/18 History [Senexon-S] aspirin [Aspir-Low] 81 mg PO DAILY 09/19/18 10/25/18 History baclofen 10 mg PO TID PRN 09/19/18 10/25/18 History furosemide [Lasix] 80 mg PO DAILY 09/19/18 10/25/18 History metoprolol tartrate 25 mg PO BID 10/25/18 10/25/18 History Exam Vital signs: Vital Signs 10/25/18 16:30 10/25/18 20:00 10/26/18 00:00 Temperature 98.1 F 99.1 F 97.2 F L Pulse Rate 77 147 H 78 Respiratory Rate 18 17 16 Blood Pressure 150/70 H 132/58 L 111/74 Pulse Oximetry 94 L 91 L 94 L 10/26/18 00:48 10/26/18 04:00 10/26/18 08:00 Temperature 97.6 F 98.1 F Pulse Rate 84 136 H Respiratory Rate 16 16 Blood Pressure 138/69 94/67 L Pulse Oximetry 93 L 92 L 98 10/26/18 08:30 10/26/18 09:00 10/26/18 12:00 Temperature 98 F Pulse Rate 127 H 102 H Respiratory Rate 16 Blood Pressure 109/63 Pulse Oximetry 98 95 Intake & Output 10/25/18 10/26/18 10/26/18 18:59 06:59 18:59 Intake Total 500 / 500 1200 / 1200 210 / 210 Output Total 150 / 150 Balance 500 / 500 1050 / 1050 210 / 210 Weight 40.823 kg 44 kg Intake: IV 500 / 500 1200 / 1200 210 / 210 NS Inj 1,000 ML @ 75 mls/hr IV. 1000 / 1000 CONT .[id number] [facility] Rx#:[id number] Ofirmev Inj 1,000 mg In 100 ml 200 / 200 210 / 210 @ 400 mls/hr IV.SIG Q6H [facility] Rx# :[id number] NS Inj 500 ML @ Wide Open IV. 500 / 500 SIG BOLUS ONE Rx#:[id number] Oral 0 / 0 Output: Urine 150 / 150 Other: # Bowel Movements 0 - Additional findings Additional findings: The patient is alert oriented appropriate. Her daughters at the bedside. Upper extremity examination shows good range of motion of the right upper extremity. She has discomfort in her chest wall with movement of the left upper extremity. She has tenderness to the mid axillary line on the left side. Lower extremity examination reveals bilateral lower extremity in very well- padded splints with the toes exposed. She has good movement, sensation and capillary refill of toes. Her skin is intact. Results - Labs Result Diagrams: 10/26/18 06:42 10/26/18 06:42 Labs: Laboratory Results - last 24 hr 10/25/18 10/25/18 10/25/18 12:30 15:30 15:30 WBC RBC Hgb Hct MCV MCH MCHC RDW Plt Count MPV Neut % (Auto) Lymph % (Auto) [place] % (Auto) Eos % (Auto) Baso % (Auto) Neut # (Auto) Lymph # (Auto) [place] # (Auto) Eos # (Auto) Baso # (Auto) WBC Differential Differential Comment Sodium Potassium Chloride Carbon Dioxide Anion Gap BUN Creatinine Estimated GFR Random Glucose Calcium Total Bilirubin AST ALT Alkaline Phosphatase Ammonia Troponin I 0.07 H Cancelled Total Protein Albumin Vitamin D 25-Hydroxy Urine Opiates Screen Neg Acetaminophen Less than 2.0 L Ur Barbiturates Screen Neg Ur Amphetamines Screen Neg U Benzodiazepines Scrn Neg Urine Cocaine Screen Neg U Cannabinoids Screen Neg Serum Alcohol Less than 3 10/25/18 10/26/18 10/26/18 22:09 06:42 06:42 WBC 8.2 D RBC 4.27 Hgb 12.5 Hct 39.4 MCV 92.1 MCH 29.3 MCHC 31.8 L RDW 15.9 Plt Count 183 MPV 8.3 Neut % (Auto) 80.1 H Lymph % (Auto) 10.2 [place] % (Auto) 9.5 H Eos % (Auto) 0.0 Baso % (Auto) 0.2 Neut # (Auto) 6.6 Lymph # (Auto) 0.8 L [place] # (Auto) 0.8 Eos # (Auto) 0.0 Baso # (Auto) 0.0 WBC Differential . Differential Comment Auto diff final Sodium Potassium Chloride Carbon Dioxide Anion Gap BUN Creatinine Estimated GFR Random Glucose Calcium Total Bilirubin AST ALT Alkaline Phosphatase Ammonia 16 Troponin I 0.08 H Total Protein Albumin Vitamin D 25-Hydroxy Urine Opiates Screen Acetaminophen Ur Barbiturates Screen Ur Amphetamines Screen U Benzodiazepines Scrn Urine Cocaine Screen U Cannabinoids Screen Serum Alcohol 10/26/18 10/26/18 06:42 06:42 WBC RBC Hgb Hct MCV MCH MCHC RDW Plt Count MPV Neut % (Auto) Lymph % (Auto) [place] % (Auto) Eos % (Auto) Baso % (Auto) Neut # (Auto) Lymph # (Auto) [place] # (Auto) Eos # (Auto) Baso # (Auto) WBC Differential Differential Comment Sodium 144 Potassium 3.2 L D Chloride 108 H Carbon Dioxide 27.4 Anion Gap 9 BUN 22 H Creatinine 0.86 Estimated GFR 63 L Random Glucose 124 H Calcium 8.5 Total Bilirubin 1.1 H AST 20 ALT 17 Alkaline Phosphatase 111 Ammonia Troponin I Total Protein 6.0 L Albumin 2.8 L Vitamin D 25-Hydroxy 35.7 Cancelled Urine Opiates Screen Acetaminophen Ur Barbiturates Screen Ur Amphetamines Screen U Benzodiazepines Scrn Urine Cocaine Screen U Cannabinoids Screen Serum Alcohol - Diagnostic results Ankle/Foot x-ray: image reviewed Ankle/Foot CT: image reviewed Assessment and Plan - Problem List (1) Bimalleolar fracture of right ankle Code(s): S82.841A - Displaced bimalleolar fracture of right lower leg, initial encounter for closed fracture Status: Acute Qualifiers: Encounter type: initial encounter Fracture type: closed (2) Fracture of lateral malleolus of left ankle Code(s): S82.62XA - Displaced fracture of lateral malleolus of left fibula, initial encounter for closed fracture Status: Acute Qualifiers: Encounter type: initial encounter Fracture type: closed Fracture alignment: nondisplaced Qualified Code(s): S82.65XA - Nondisplaced fracture of lateral malleolus of left fibula, initial encounter for closed fracture - Assessment and Plan Assessment: Bilateral ankle fractures nondisplaced Plan: The recommendation is to protect these fractures with continuation of bilateral splints. Officially she is nonweightbearing except for transfers. I believe the fractures are unlikely to displace if she uses her feet to pivot. The if we do not allow her to pivot then she would be at higher risk for bedsores and complications of recumbency. Therefore, recommend transfer draining with weight-bearing when she does this. Most of her pain is coming from rib fractures. After pain comes under control, it would be appropriate to transfer her to senior living facility for further management. I will continues follow her while she is hospitalized. Recommend follow-up in the office in 3-4 weeks. A mid-level provider, nurse practitioner PA may see this patient on a follow-up basis and continue implement the plan of care.
--- NOTE | 2018-10-26 17:26 | ECG ---
Date Performed: 10/25/2018 Time Performed: 11:06:41 PTAGE: 78 years EKG: Atrial Fibrillation Diffuse ST changes ABNORMAL RHYTHM ECG INTERPRETATION BASED ON A DEFAUL T AGE OF 40 YEARS NO PREVIOUS TRACING DOCTOR: Elba Scott Interpretating Date/Time 10/26/2018 17:22:50
--- NOTE | 2018-10-26 21:55 | MG ---
cc: Darrius Aguiar MD, PhD DATE OF STUDY: 10/26/2018 TEST NUMBER: [id number] TECHNIQUE: This is a 17-channel EEG. DESCRIPTION: The background rhythm reveals mild slowing in the theta range at 6 Hz. At times, there is a normal alpha rhythm. Occasional eye movement and muscle artifact identified. Photic results in a modest driving response. There are no epileptiform features. INTERPRETATION: Mildly abnormal study with mild generalized slowing consistent with mild encephalopathy. Darrius Aguiar MD, PhD YOVANA/rw , 07:23 PM , 07:27 PM
[2018-10-26] MEDS: Ketorolac Inj 30 MG/ML (IVP) Vial IV.PUSH PRN (22:33)
[2018-10-27] MEDS: Morphine Sulfate Inj 2 MG/ML Vial IV.PUSH PRN ×2 (00:37→07:32)
[2018-10-27] MEDS: Ketorolac Inj 30 MG/ML (IVP) Vial IV.PUSH PRN (05:33)
[2018-10-27 07:01] LABS: Baso % (Auto) 0.3 % (0.0-2.0); Eos % (Auto) 0.3 % (0.0-4.0); Hematocrit 34.1 % (35.0-46.0); Hemoglobin 11.2 gm/dL (11.6-15.3); Lymph # (Auto) 1.1 th/mm3 (1.0-4.8); Lymph % (Auto) 15.9 % (9.0-44.0); Mean Corpuscular HGB Conc 32.9 % (32.0-36.0); Mean Corpuscular Hemoglobin 29.5 pg (27.0-34.0); Mean Corpuscular Volume 89.6 fL (80.0-100.0); Mean Platelet Volume 8.4 fL (7.0-11.0); Mono # (Auto) 0.6 th/mm3 (0.0-0.9); Mono % (Auto) 8.6 % (0.0-8.0); Neut # (Auto) 5.3 th/mm3 (1.8-7.7); Neut % (Auto) 74.9 % (16.0-70.0); Platelet Count 185 th/mm3 (150-450); Red Cell Distribution Width 16.1 % (11.6-17.2); White Blood Count 7.1 th/mm3 (4.0-11.0)
[2018-10-27 07:32] LABS: Alanine Aminotransferase 17 U/L (10-53); Albumin 2.4 g/dL (3.4-5.0); Alkaline Phosphatase 100 U/L (45-117); Anion Gap 11 meq/L (5-15); Aspartate Aminotransferase 20 U/L (15-37); Blood Urea Nitrogen 27 mg/dL (7-18); Calcium 7.8 mg/dL (8.5-10.1); Carbon Dioxide 26.9 meq/L (21.0-32.0); Chloride 100 meq/L (98-107); Glomerular Filtration Rate 42 mL/min (>89); Glucose,Random 165 mg/dL (74-106); Potassium 3.8 meq/L (3.5-5.1); Sodium 138 meq/L (136-145); Total Protein 5.8 g/dL (6.4-8.2)
[2018-10-27] MEDS: dilTIAZem CD 240 MG Capsule PO SCH (08:27)
[2018-10-27] MEDS: Senna/Docusate Sodium 8.6/50 MG Tablet PO SCH ×2 (08:28→21:40)
[2018-10-27] MEDS: Furosemide 80 MG Tablet PO SCH (08:29)
[2018-10-27] MEDS: Metoprolol Tartrate 25 MG Tablet PO SCH ×3 (08:29→18:18)
[2018-10-27] MEDS ORDERED: Sodium Chlor 0.9% Inj 500 ML IV.SIG SCH (09:00)
--- NOTE | 2018-10-27 10:21 | P.PNFP ---
Subjective Interval history: No acute events overnight. Patient is awake and alert today states that aside from pain in her ankle she feels fine. Denies any dizziness, headache, chest pain or shortness of breath. Patient was mildly hypotensive overnight. She was also in A. fib this morning but denied any palpitations. <NasirJoselito B - 10/27/18 11:22> Results - Labs Result diagrams: 10/28/18 06:41 10/28/18 06:41 <Josie Brower R - 10/28/18 10:15> Abnormal lab results 10/27/18 10/28/18 10/28/18 Range/Units 12:00 06:41 06:41 RBC 3.74 L (4.00-5.30) mil/mm3 Hgb 11.1 L 10.9 L (11.6-15.3) gm/dL Hct 34.7 L 33.9 L (35.0-46.0) % [facility] % (Auto) 10.7 H (0.0-8.0) % Sodium 135 L (136-145) meq/L BUN 27 H (7-18) mg/dL Estimated GFR 56 L (>89) mL/min Calcium 8.2 L (8.5-10.1) mg/dL Short CBC 10/27/18 10/28/18 Range/Units 12:00 06:41 WBC 4.9 (4.0-11.0) th/mm3 Hgb 11.1 L 10.9 L (11.6-15.3) gm/dL Hct 34.7 L 33.9 L (35.0-46.0) % Plt Count 182 (150-450) th/mm3 [facility] 10/28/18 06:41 Sodium 135 L Potassium 3.8 Chloride 98 Carbon Dioxide 30.0 BUN 27 H Creatinine 0.96 Calcium 8.2 L <Josie Brower R - 10/28/18 10:15> Abnormal lab results 10/27/18 10/27/18 Range/Units 06:34 06:34 RBC 3.80 L (4.00-5.30) mil/mm3 Hgb 11.2 L (11.6-15.3) gm/dL Hct 34.1 L (35.0-46.0) % Neut % (Auto) 74.9 H (16.0-70.0) % [facility] % (Auto) 8.6 H (0.0-8.0) % BUN 27 H (7-18) mg/dL Creatinine 1.22 H (0.50-1.00) mg/dL Estimated GFR 42 L (>89) mL/min Random Glucose 165 H (74-106) mg/dL Calcium 7.8 L (8.5-10.1) mg/dL Total Protein 5.8 L (6.4-8.2) g/dL Albumin 2.4 L (3.4-5.0) g/dL Short CBC 10/27/18 Range/Units 06:34 WBC 7.1 (4.0-11.0) th/mm3 Hgb 11.2 L (11.6-15.3) gm/dL Hct 34.1 L (35.0-46.0) % Plt Count 185 (150-450) th/mm3 BMP 10/27/18 06:34 Sodium 138 Potassium 3.8 Chloride 100 D Carbon Dioxide 26.9 BUN 27 H Creatinine 1.22 H Calcium 7.8 L Liver Function 10/27/18 Range/Units 06:34 Total Bilirubin 0.5 (0.2-1.0) mg/dL AST 20 (15-37) U/L ALT 17 (10-53) U/L Alkaline Phosphatase 100 (45-117) U/L Albumin 2.4 L (3.4-5.0) g/dL <Joselito Best B - 10/27/18 10:21> Physical Exam Vital signs: Vital Signs 10/27/18 12:00 10/27/18 12:30 10/27/18 16:00 Temperature 97.6 F 97.3 F L Pulse Rate 105 H 119 H 77 Respiratory Rate 17 17 Blood Pressure 139/69 96/52 L Pulse Oximetry 93 L 94 L 10/27/18 16:30 10/27/18 18:17 10/27/18 20:00 Temperature 97.7 F 98.5 F Pulse Rate 80 93 H 85 Respiratory Rate 16 19 Blood Pressure 109/78 110/66 Pulse Oximetry 96 10/28/18 00:00 10/28/18 04:00 10/28/18 08:00 Temperature 97.1 F L 97.1 F L 97.9 F Pulse Rate 89 108 H 85 Respiratory Rate 17 19 18 Blood Pressure 116/60 118/88 131/97 H Pulse Oximetry 95 95 93 L Intake & Output 10/27/18 10/28/18 10/28/18 18:59 06:59 18:59 Intake Total 980 / 980 750 / 750 Balance 980 / 980 750 / 750 Weight 48.5 kg Intake: IV 500 / 500 NS Inj 500 ML @ 1000 mls/hr IV. 500 / 500 SIG BOLUS [facility] Rx#:[id number] Oral 480 / 480 750 / 750 Other: # Incontinent Voids 2 3 # Bowel Movements 1 <LeonardaJosie R - 10/28/18 10:15> Vital Signs 10/26/18 12:00 10/26/18 16:00 10/26/18 20:00 Temperature 98 F 97.5 F L 98 F Pulse Rate 102 H 94 H 138 H Respiratory Rate 16 16 18 Blood Pressure 109/63 94/60 L 107/56 L Pulse Oximetry 95 97 95 10/27/18 00:00 10/27/18 04:00 10/27/18 08:00 Temperature 97.1 F L 98.1 F 97.6 F Pulse Rate 81 97 H 144 H Respiratory Rate 19 17 17 Blood Pressure 113/70 90/57 L Pulse Oximetry 94 L 95 96 Intake & Output 10/26/18 10/27/18 10/27/18 18:59 06:59 18:59 Intake Total 690 / 690 420 / 420 Output Total 400 / 400 Balance 290 / 290 420 / 420 Weight 46.5 kg Intake: IV 210 / 210 Ofirmev Inj 1,000 mg In 100 ml 210 / 210 @ 400 mls/hr IV.SIG Q6H [facility] Rx# :[id number] Oral 480 / 480 420 / 420 Output: Urine 400 / 400 Other: # Voids 2 # Bowel Movements 1 <Joselito Best B - 10/27/18 10:21> Narrative: GENERAL: Elderly white female lying in bed very sleepy, difficult to arouse SKIN: Warm and dry. HEAD: Atraumatic. Normocephalic. EYES: Pupils equal and round. No scleral icterus. No injection or drainage. ENT: No nasal bleeding or discharge. Mucous membranes pink and moist. NECK: Trachea midline. No JVD. CARDIOVASCULAR: Irregularly irregular rhythm with a rate in the 130s. No murmurs appreciated RESPIRATORY: No accessory muscle use. Clear to auscultation. Breath sounds equal bilaterally. GASTROINTESTINAL: Abdomen soft, non-tender, nondistended. MUSCULOSKELETAL: Extremities without clubbing, cyanosis, or edema. Hard splints of the bilateral lower extremities from the mid tibia down. Adequate capillary refill in the toes, sensation intact, moving toes on command. NEUROLOGICAL: Drowsy. Normal speech. <NasirJoselito B - 10/27/18 11:22> Assessment and Plan - Assessment (1) Bilateral ankle fractures Code(s): S82.891A - Other fracture of right lower leg, initial encounter for closed fracture; S82.892A - Other fracture of left lower leg, initial encounter for closed fracture Status: Acute (2) Multiple rib fractures Code(s): S22.49XA - Multiple fractures of ribs, unspecified side, initial encounter for closed fracture Status: Acute (3) Altered mental status Code(s): R41.82 - Altered mental status, unspecified Status: Acute (4) Hypotension Code(s): I95.9 - Hypotension, unspecified Status: Acute (5) Fall Code(s): W19.XXXA - Unspecified fall, initial encounter Status: Acute (6) Afib Code(s): I48.91 - Unspecified atrial fibrillation Status: Acute (7) Congestive heart failure Code(s): I50.9 - Heart failure, unspecified Status: Acute (8) Hypertension Code(s): I10 - Essential (primary) hypertension Status: Acute (9) Nutrition, metabolism, and development symptoms Code(s): R63.8 - Other symptoms and signs concerning food and fluid intake Status: Acute <Josie Brower - 10/28/18 10:15> (1) Bilateral ankle fractures Code(s): S82.891A - Other fracture of right lower leg, initial encounter for closed fracture; S82.892A - Other fracture of left lower leg, initial encounter for closed fracture Status: Acute Plan: Known history of osteoporosis and takes ibandronate monthly Right ankle x-ray showed nondisplaced fracture to the medial malleolus and posterior tibial fracture which extends into the tibiotalar joint, oblique minimally displaced fracture of the distal fibular metaphysis Left ankle x-ray shows nondisplaced fracture of the lateral malleolus Orthopedic surgery consult recommending no surgery and rehab Continue IV Tylenol Had tried Toradol for pain but was not tolerated well, resuming [place] pain scale and 0.5 mg IV morphine for breakthrough (2) Multiple rib fractures Code(s): S22.49XA - Multiple fractures of ribs, unspecified side, initial encounter for closed fracture Status: Acute Plan: Patient's daughter reported that patient hit her chest during her fall this morning Patient's family reports that she endorsed this No overlying bruises/skin changes on physical exam Chest x-ray on admission showed fractures of the fourth, fifth, sixth ribs anteriorly on the left Pain control as above (3) Altered mental status Code(s): R41.82 - Altered mental status, unspecified Status: Acute Plan: Family reports a several week history of steady decline in patient's mental status Initial workup was negative except for ammonia Initial ammonia was elevated but resolved Currently alert and oriented x3, continue to monitor Palliative care was consulted to discuss goals of care with patient and family had steady decline * Pending discussion with healthcare surrogate Marilee Chou * No code DNR (4) Hypotension Code(s): I95.9 - Hypotension, unspecified Status: Acute Plan: Patient with a blood pressure of 90/57 this morning - asymptomatic Also associated with elevated heart rate likely secondary to her A. fib Due to this as well as an increase in her creatinine, giving a 500 mL normal saline bolus over 90 minutes Continue to monitor (5) Fall Code(s): W19.XXXA - Unspecified fall, initial encounter Status: Acute Plan: Head CT, cervical spine CT, pelvis x-ray unremarkable See plan below for ankle x-ray, chest x-ray findings (6) Afib Code(s): I48.91 - Unspecified atrial fibrillation Status: Acute Plan: Known history of A. fib Takes metoprolol, Cardizem Has had occasional bouts of A. fib prior to her metoprolol treatment, increasing metoprolol to 25 mg p.o. 3 times daily from twice daily Continuing Eliquis (7) Congestive heart failure Code(s): I50.9 - Heart failure, unspecified Status: Acute Plan: Known history of CHF Takes metoprolol, 80 mg Lasix, Cardizem Decreasing Lasix to 40 mg on 10/27 as she had a small increase in her creatinine (8) Hypertension Code(s): I10 - Essential (primary) hypertension Status: Acute Plan: Reported history of hypertension Takes metoprolol, Cardizem, Lasix See plan above (9) Nutrition, metabolism, and development symptoms Code(s): R63.8 - Other symptoms and signs concerning food and fluid intake Status: Acute Plan: Oral fluids Regular diet No significant or joint abnormalities on admission Continuing home Eliquis for DVT prophylaxis <Joselito Best - 10/27/18 11:16> - Assessment and Plan 78-year-old female with a history of CHF, A. fib, hypertension, osteoporosis presented to the emergency room after week history of progressive altered mental status with a fall on the day of presentation. Patient was found to have multiple rib fractures, bilateral ankle fractures. Orthopedic surgery consulted and recommending no surgery, will need rehab. Other imaging including a head CT, cervical spine CT, pelvis x-ray were negative. Palliative care consulted to clarify goals of care. Case management consulted for placement <Joselito Best - 10/27/18 11:22> - Attending Attestation Patient dw resident team. Agree with assessment and plan <Josie Brower R - 10/28/18 10:15> <Joselito Best B - Last Filed: 10/27/18 11:16> (1) Bilateral ankle fractures Qualifiers: Encounter type: initial encounter Fracture type: closed Qualified Code(s): S82.891A - Other fracture of right lower leg, initial encounter for closed fracture; S82.892A - Other fracture of left lower leg, initial encounter for closed fracture (2) Multiple rib fractures Qualifiers: Encounter type: initial encounter Fracture type: closed Laterality: bilateral Qualified Code(s): S22.43XA - Multiple fractures of ribs, bilateral, initial encounter for closed fracture (3) Altered mental status Qualifiers: Altered mental status type: unspecified Qualified Code(s): R41.82 - Altered mental status, unspecified <Josie Brower - Last Filed: 10/28/18 10:15> (1) Bilateral ankle fractures Qualifiers: Encounter type: initial encounter Fracture type: closed Qualified Code(s): S82.891A - Other fracture of right lower leg, initial encounter for closed fracture; S82.892A - Other fracture of left lower leg, initial encounter for closed fracture (2) Multiple rib fractures Qualifiers: Encounter type: initial encounter Fracture type: closed Laterality: bilateral Qualified Code(s): S22.43XA - Multiple fractures of ribs, bilateral, initial encounter for closed fracture (3) Altered mental status Qualifiers: Altered mental status type: unspecified Qualified Code(s): R41.82 - Altered mental status, unspecified <Joselito Best - Last Filed: 10/27/18 11:16> (1) Bilateral ankle fractures Qualifiers: Encounter type: initial encounter Fracture type: closed Qualified Code(s): S82.891A - Other fracture of right lower leg, initial encounter for closed fracture; S82.892A - Other fracture of left lower leg, initial encounter for closed fracture (2) Multiple rib fractures Qualifiers: Encounter type: initial encounter Fracture type: closed Laterality: bilateral Qualified Code(s): S22.43XA - Multiple fractures of ribs, bilateral, initial encounter for closed fracture (3) Altered mental status Qualifiers: Altered mental status type: unspecified Qualified Code(s): R41.82 - Altered mental status, unspecified <Josie Brower - Last Filed: 12/10/18 10:15> (1) Bilateral ankle fractures Qualifiers: Encounter type: initial encounter Fracture type: closed Qualified Code(s): S82.891A - Other fracture of right lower leg, initial encounter for closed fracture; S82.892A - Other fracture of left lower leg, initial encounter for closed fracture (2) Multiple rib fractures Qualifiers: Encounter type: initial encounter Fracture type: closed Laterality: bilateral Qualified Code(s): S22.43XA - Multiple fractures of ribs, bilateral, initial encounter for closed fracture (3) Altered mental status Qualifiers: Altered mental status type: unspecified Qualified Code(s): R41.82 - Altered mental status, unspecified
--- NOTE | 2018-10-27 11:32 | P.DIET ---
Nutritional Evaluation Type of nutrition evaluation: initial Nutrition consult regarding: Diet Evaluation Nutrition screening: Weight Loss > 10 lbs Screening comments: 10/25 WLS Objective - Diagnosis AMS, elevated troponin - Objective Body Mass Index: 18.8 % IBW: 93 (IBW = 110lbs) Body Weight Used for Calculations: Actual Energy Needs - Lower Range (kCal/kg): 25 Energy Needs - Upper Range (kCal/kg): 30 Lower Limit kCal/kg (kCals): 1,163 Upper Limit kCal/kg (kCals): 1,395 Lower Limit Protein Factor (Grams per Kg): 1.1 Upper Limit Protein Factor (Grams per Kg): 1.3 Lower Protein Needs (Protein): 51 Upper Protein Needs (Protein): 61 Dietitian Reviewed in Medical Record: Current diet, Curent medications, Intake & Output, Labs, Medical history Diet Order: regular Oral Diet Intake Amount: Fair 50-75% Objective Comments: PMH: Afib, CHF, CAD, HTN, osteoporosis Labs: BUN 27, Cr 1.22, GFR 42, random glucose 121 124 165 Assessment Assessment: Pt currently at nutritional risk r/t reported unplanned wt loss. Pt currently consuming 50-75% of most meals. RD to recommend Ensure Enlive BID as PO supplement for additional nutrition. Continue to monitor PO and supplement intake. Labs reviewed, dietitian following. Recommendations: 1. RD to recommend Ensure Enlive BID as PO supplement for additional nutrition 2. Continue to monitor PO and supplement intake 3. Dietitian following Dietitian to Monitor: Lab values, Glucose level, Intake & Output, Diet tolerance , PO Intake, Medical course
[2018-10-27 12:09] LABS: Hematocrit 34.7 % (35.0-46.0); Hemoglobin 11.1 gm/dL (11.6-15.3)
--- NOTE | 2018-10-27 12:13 | P.PNOP ---
Subjective Interval history: Patient c/o bilateral ankle pain. RN at bedside. Physical Exam Vital signs: Vital Signs 10/26/18 16:00 10/26/18 20:00 10/27/18 00:00 Temperature 97.5 F L 98 F 97.1 F L Pulse Rate 94 H 138 H 81 Respiratory Rate 16 18 19 Blood Pressure 94/60 L 107/56 L Pulse Oximetry 97 95 94 L 10/27/18 04:00 10/27/18 08:00 10/27/18 08:30 Temperature 98.1 F 97.6 F Pulse Rate 97 H 144 H 126 H Respiratory Rate 17 17 Blood Pressure 113/70 90/57 L Pulse Oximetry 95 96 Intake & Output 10/26/18 10/27/18 10/27/18 18:59 06:59 18:59 Intake Total 690 / 690 420 / 420 Output Total 400 / 400 Balance 290 / 290 420 / 420 Weight 46.5 kg Intake: IV 210 / 210 Ofirmev Inj 1,000 mg In 100 ml 210 / 210 @ 400 mls/hr IV.SIG Q6H SAIMA Rx# :[id number] Oral 480 / 480 420 / 420 Output: Urine 400 / 400 Other: # Voids 2 # Bowel Movements 1 Narrative: Bilateral ankles splints intact good movement of toes +sensation Results - Labs CBC & Chem 7: 10/27/18 06:34 10/27/18 06:34 Laboratory Results - last 24 hr 10/27/18 10/27/18 10/27/18 06:34 06:34 06:34 WBC 7.1 RBC 3.80 L Hgb 11.2 L Hct 34.1 L MCV 89.6 MCH 29.5 MCHC 32.9 RDW 16.1 Plt Count 185 MPV 8.4 Neut % (Auto) 74.9 H Lymph % (Auto) 15.9 [place] % (Auto) 8.6 H Eos % (Auto) 0.3 Baso % (Auto) 0.3 Neut # (Auto) 5.3 Lymph # (Auto) 1.1 [place] # (Auto) 0.6 Eos # (Auto) 0.0 Baso # (Auto) 0.0 WBC Differential . Differential Comment Auto diff final Sodium 138 Potassium 3.8 Chloride 100 D Carbon Dioxide 26.9 Anion Gap 11 BUN 27 H Creatinine 1.22 H Estimated GFR 42 L Random Glucose 165 H Calcium 7.8 L Total Bilirubin 0.5 AST 20 ALT 17 Alkaline Phosphatase 100 Ammonia 28 Total Protein 5.8 L Albumin 2.4 L Assessment and Plan - Problem List (1) Bimalleolar fracture of right ankle Code(s): S82.841A - Displaced bimalleolar fracture of right lower leg, initial encounter for closed fracture Status: Acute Qualifiers: Encounter type: initial encounter Fracture type: closed (2) Fracture of lateral malleolus of left ankle Code(s): S82.62XA - Displaced fracture of lateral malleolus of left fibula, initial encounter for closed fracture Status: Acute Qualifiers: Encounter type: initial encounter Fracture type: closed Fracture alignment: nondisplaced Qualified Code(s): S82.65XA - Nondisplaced fracture of lateral malleolus of left fibula, initial encounter for closed fracture - Assessment and Plan Assessment: Bilateral ankle fractures nondisplaced Plan: The recommendation is to protect these fractures with continuation of bilateral splints. Physical therapy - nonweightbearing to bilateral extremities. Allow to weight bear and pivot only for transfers. D/C planning -anticipating custodial facility for further management. Orthopedically stable for discharge. Will need medical clearance. Recommend follow-up in the office in 3-4 weeks.
--- NOTE | 2018-10-27 16:45 | ECG ---
Date Performed: 10/25/2018 Time Performed: 15:16:03 PTAGE: 78 years EKG: ATRIAL FIBRILLATION WITH CONTROLLED VENTRICULAR RATE DIFFUSE ST-T ABNORMALITY PROBABLY NO M AJOR CHANGE FROM PRIOR ABNORMAL ECG PREVIOUS TRACING : 10/25/2018 11.06 DOCTOR: Kevin Barraza Interpretating Date/Time 10/27/2018 16:43:39
--- NOTE | 2018-10-27 16:45 | ECG ---
Date Performed: 10/25/2018 Time Performed: 21:57:25 PTAGE: 78 years EKG: ATRIAL FIBRILLATION WITH CONTROLLED VENTRICULAR RATE DIFFUSE ST-T ABNORMALITY INCOMPLETE RB BB NO MAJOR CHANGE FROM PRIOR ABNORMAL ECG PREVIOUS TRACING : 10/25/2018 15.16 DOCTOR: Kevin Barraza Interpretating Date/Time 10/27/2018 16:44:08
--- NOTE | 2018-10-27 16:46 | ECG ---
Date Performed: 10/25/2018 Time Performed: 22:21:34 PTAGE: 78 years EKG: ATRIAL FIBRILLATION WITH CONTROLLED VENTRICULAR RATE LOW PRECORDIAL LEAD VOLTAGE LOW LIMB L EAD VOLTAGE NONSPECIFIC ST-T WAVE CHANGES PROBABLY NO MAJOR CHANGE FROM PRIOR, EXCEPT VOLTAGE IS LESS Abnormal ECG PREVIOUS TRACING : 10/25/2018 21.57.25 DOCTOR: Kevin Barraza Interpretating Date/Time 10/27/2018 16:45:17
[2018-10-28 07:18] LABS: Baso % (Auto) 0.4 % (0.0-2.0); Eos % (Auto) 0.5 % (0.0-4.0); Hematocrit 33.9 % (35.0-46.0); Hemoglobin 10.9 gm/dL (11.6-15.3); Lymph # (Auto) 1.1 th/mm3 (1.0-4.8); Mean Corpuscular HGB Conc 32.2 % (32.0-36.0); Mean Corpuscular Hemoglobin 29.2 pg (27.0-34.0); Mean Corpuscular Volume 90.6 fL (80.0-100.0); Mean Platelet Volume 8.2 fL (7.0-11.0); Mono # (Auto) 0.5 th/mm3 (0.0-0.9); Mono % (Auto) 10.7 % (0.0-8.0); Neut # (Auto) 3.3 th/mm3 (1.8-7.7); Neut % (Auto) 66.4 % (16.0-70.0); Platelet Count 182 th/mm3 (150-450); Red Blood Count 3.74 mil/mm3 (4.00-5.30); Red Cell Distribution Width 16.6 % (11.6-17.2); White Blood Count 4.9 th/mm3 (4.0-11.0)
[2018-10-28 07:50] LABS: Calcium 8.2 mg/dL (8.5-10.1); Potassium 3.8 meq/L (3.5-5.1)
--- NOTE | 2018-10-28 09:37 | P.PNFP ---
Subjective Interval history: No acute events overnight. Pain is currently well controlled on her p.o. medications. She denies any chest pain, shortness of breath, abdominal pain. She does state that she is constipated but otherwise has no complaints. <Joselito Best B - 10/28/18 12:16> Results - Labs Result diagrams: 10/28/18 06:41 10/28/18 06:41 <Josie Brower R - 10/28/18 17:19> Abnormal lab results 10/28/18 10/28/18 Range/Units 06:41 06:41 RBC 3.74 L (4.00-5.30) mil/mm3 Hgb 10.9 L (11.6-15.3) gm/dL Hct 33.9 L (35.0-46.0) % [place] % (Auto) 10.7 H (0.0-8.0) % Sodium 135 L (136-145) meq/L BUN 27 H (7-18) mg/dL Estimated GFR 56 L (>89) mL/min Calcium 8.2 L (8.5-10.1) mg/dL Short CBC 10/28/18 Range/Units 06:41 WBC 4.9 (4.0-11.0) th/mm3 Hgb 10.9 L (11.6-15.3) gm/dL Hct 33.9 L (35.0-46.0) % Plt Count 182 (150-450) th/mm3 BMP 10/28/18 06:41 Sodium 135 L Potassium 3.8 Chloride 98 Carbon Dioxide 30.0 BUN 27 H Creatinine 0.96 Calcium 8.2 L <Josie Brower R - 10/28/18 17:19> Abnormal lab results 10/27/18 10/28/18 10/28/18 Range/Units 12:00 06:41 06:41 RBC 3.74 L (4.00-5.30) mil/mm3 Hgb 11.1 L 10.9 L (11.6-15.3) gm/dL Hct 34.7 L 33.9 L (35.0-46.0) % [place] % (Auto) 10.7 H (0.0-8.0) % Sodium 135 L (136-145) meq/L BUN 27 H (7-18) mg/dL Estimated GFR 56 L (>89) mL/min Calcium 8.2 L (8.5-10.1) mg/dL Short CBC 10/27/18 10/28/18 Range/Units 12:00 06:41 WBC 4.9 (4.0-11.0) th/mm3 Hgb 11.1 L 10.9 L (11.6-15.3) gm/dL Hct 34.7 L 33.9 L (35.0-46.0) % Plt Count 182 (150-450) th/mm3 BMP 10/28/18 06:41 Sodium 135 L Potassium 3.8 Chloride 98 Carbon Dioxide 30.0 BUN 27 H Creatinine 0.96 Calcium 8.2 L <Joselito Best B - 10/28/18 09:37> Physical Exam Vital signs: Vital Signs 10/27/18 18:17 10/27/18 20:00 10/28/18 00:00 Temperature 97.7 F 98.5 F 97.1 F L Pulse Rate 93 H 85 89 Respiratory Rate 16 19 17 Blood Pressure 109/78 110/66 116/60 Pulse Oximetry 96 95 10/28/18 04:00 10/28/18 08:00 10/28/18 12:00 Temperature 97.1 F L 97.9 F 97.9 F Pulse Rate 108 H 85 130 H Respiratory Rate 19 18 20 Blood Pressure 118/88 131/97 H 145/89 H Pulse Oximetry 95 93 L 10/28/18 14:34 Temperature Pulse Rate Respiratory Rate Blood Pressure Pulse Oximetry 93 L Intake & Output 10/27/18 10/28/18 10/28/18 18:59 06:59 18:59 Intake Total 980 / 980 750 / 750 Balance 980 / 980 750 / 750 Weight 48.5 kg Intake: IV 500 / 500 NS Inj 500 ML @ 1000 mls/hr IV. 500 / 500 SIG BOLUS SAIMA Rx#:[id number] Oral 480 / 480 750 / 750 Other: # Incontinent Voids 2 3 # Bowel Movements 1 <Josie Brower R - 10/28/18 17:19> Vital Signs 10/27/18 12:00 10/27/18 12:30 10/27/18 16:00 Temperature 97.6 F 97.3 F L Pulse Rate 105 H 119 H 77 Respiratory Rate 17 17 Blood Pressure 139/69 96/52 L Pulse Oximetry 93 L 94 L 10/27/18 16:30 10/27/18 18:17 10/27/18 20:00 Temperature 97.7 F 98.5 F Pulse Rate 80 93 H 85 Respiratory Rate 16 19 Blood Pressure 109/78 110/66 Pulse Oximetry 96 10/28/18 00:00 10/28/18 04:00 10/28/18 08:00 Temperature 97.1 F L 97.1 F L 97.9 F Pulse Rate 89 108 H 85 Respiratory Rate 17 19 18 Blood Pressure 116/60 118/88 131/97 H Pulse Oximetry 95 95 93 L Intake & Output 10/27/18 10/28/18 10/28/18 18:59 06:59 18:59 Intake Total 980 / 980 750 / 750 Balance 980 / 980 750 / 750 Weight 48.5 kg Intake: IV 500 / 500 NS Inj 500 ML @ 1000 mls/hr IV. 500 / 500 SIG BOLUS SAIMA Rx#:[id number] Oral 480 / 480 750 / 750 Other: # Incontinent Voids 2 3 # Bowel Movements 1 <Joselito Best - 10/28/18 09:37> Narrative: GENERAL: Elderly white female lying in bed in no acute distress. Awake and alert and answering questions appropriately SKIN: Warm and dry. HEAD: Atraumatic. Normocephalic. EYES: Pupils equal and round. No scleral icterus. No injection or drainage. ENT: No nasal bleeding or discharge. Mucous membranes pink and moist. NECK: Trachea midline. No JVD. CARDIOVASCULAR: Irregularly irregular rhythm with a rate in the 90s. No murmurs appreciated RESPIRATORY: No accessory muscle use. Clear to auscultation. Breath sounds equal bilaterally. GASTROINTESTINAL: Abdomen soft, non-tender, nondistended. MUSCULOSKELETAL: Extremities without clubbing, cyanosis, or edema. Hard splints of the bilateral lower extremities from the mid tibia down. Adequate capillary refill in the toes, sensation intact, moving toes on command. NEUROLOGICAL: Awake and alert. Normal speech. <Joselito Best - 10/28/18 14:04> Assessment and Plan - Assessment (1) Bilateral ankle fractures Code(s): S82.891A - Other fracture of right lower leg, initial encounter for closed fracture; S82.892A - Other fracture of left lower leg, initial encounter for closed fracture Status: Acute (2) Multiple rib fractures Code(s): S22.49XA - Multiple fractures of ribs, unspecified side, initial encounter for closed fracture Status: Acute (3) Altered mental status Code(s): R41.82 - Altered mental status, unspecified Status: Acute (4) Hypotension Code(s): I95.9 - Hypotension, unspecified Status: Acute (5) Fall Code(s): W19.XXXA - Unspecified fall, initial encounter Status: Acute (6) Afib Code(s): I48.91 - Unspecified atrial fibrillation Status: Acute (7) Congestive heart failure Code(s): I50.9 - Heart failure, unspecified Status: Acute (8) Hypertension Code(s): I10 - Essential (primary) hypertension Status: Acute (9) Nutrition, metabolism, and development symptoms Code(s): R63.8 - Other symptoms and signs concerning food and fluid intake Status: Acute <LeonardaJosie Alida - 10/28/18 17:19> (1) Bilateral ankle fractures Code(s): S82.891A - Other fracture of right lower leg, initial encounter for closed fracture; S82.892A - Other fracture of left lower leg, initial encounter for closed fracture Status: Acute Plan: Known history of osteoporosis and takes ibandronate monthly Right ankle x-ray showed nondisplaced fracture to the medial malleolus and posterior tibial fracture which extends into the tibiotalar joint, oblique minimally displaced fracture of the distal fibular metaphysis Left ankle x-ray shows nondisplaced fracture of the lateral malleolus Orthopedic surgery consult recommending no surgery and rehab Pain currently well controlled on Henrietta pain scale (2) Multiple rib fractures Code(s): S22.49XA - Multiple fractures of ribs, unspecified side, initial encounter for closed fracture Status: Acute Plan: Patient's daughter reported that patient hit her chest during her fall this morning Patient's family reports that she endorsed this No overlying bruises/skin changes on physical exam Chest x-ray on admission showed fractures of the fourth, fifth, sixth ribs anteriorly on the left Pain control as above (3) Altered mental status Code(s): R41.82 - Altered mental status, unspecified Status: Acute Plan: Currently resolved (4) Hypotension Code(s): I95.9 - Hypotension, unspecified Status: Acute Plan: Resolved (5) Fall Code(s): W19.XXXA - Unspecified fall, initial encounter Status: Acute Plan: Head CT, cervical spine CT, pelvis x-ray unremarkable See plan below for ankle x-ray, chest x-ray findings (6) Afib Code(s): I48.91 - Unspecified atrial fibrillation Status: Acute Plan: Known history of A. fib Takes metoprolol, Cardizem Increase metoprolol to 3 times daily from twice daily, rate better controlled today Continuing Eliquis (7) Congestive heart failure Code(s): I50.9 - Heart failure, unspecified Status: Acute Plan: Known history of CHF Takes metoprolol, 80 mg Lasix, Cardizem Decreased Lasix to 40 mg on 10/27 as she had a small increase in her creatinine (8) Hypertension Code(s): I10 - Essential (primary) hypertension Status: Acute Plan: Reported history of hypertension Takes metoprolol, Cardizem, Lasix See plan above (9) Nutrition, metabolism, and development symptoms Code(s): R63.8 - Other symptoms and signs concerning food and fluid intake Status: Acute Plan: Oral fluids Regular diet No significant electrolyte abnormalities on admission Continuing home Eliquis for DVT prophylaxis <Joselito Best B - 10/28/18 13:55> - Assessment and Plan 78-year-old female with a history of CHF, A. fib, hypertension, osteoporosis presented to the emergency room after week history of progressive altered mental status with a fall on the day of presentation. Patient was found to have multiple rib fractures, bilateral ankle fractures. Orthopedic surgery consulted and recommending no surgery, will need rehab. Other imaging including a head CT, cervical spine CT, pelvis x-ray were negative. Palliative care consulted to clarify goals of care. Case management consulted for placement. Pain currently well controlled on p.o. medications <Joselito Best B - 10/28/18 14:04> - Attending Attestation Pt seen and examined and dw the resident team. Agree with the assessment and plan <Josie Brower R - 10/28/18 17:19> <Joselito Best B - Last Filed: 10/28/18 13:55> (1) Bilateral ankle fractures Qualifiers: Encounter type: initial encounter Fracture type: closed Qualified Code(s): S82.891A - Other fracture of right lower leg, initial encounter for closed fracture; S82.892A - Other fracture of left lower leg, initial encounter for closed fracture (2) Multiple rib fractures Qualifiers: Encounter type: initial encounter Fracture type: closed Laterality: bilateral Qualified Code(s): S22.43XA - Multiple fractures of ribs, bilateral, initial encounter for closed fracture (3) Altered mental status Qualifiers: Altered mental status type: unspecified Qualified Code(s): R41.82 - Altered mental status, unspecified <Josie Brower R - Last Filed: 10/28/18 17:19> (1) Bilateral ankle fractures Qualifiers: Encounter type: initial encounter Fracture type: closed Qualified Code(s): S82.891A - Other fracture of right lower leg, initial encounter for closed fracture; S82.892A - Other fracture of left lower leg, initial encounter for closed fracture (2) Multiple rib fractures Qualifiers: Encounter type: initial encounter Fracture type: closed Laterality: bilateral Qualified Code(s): S22.43XA - Multiple fractures of ribs, bilateral, initial encounter for closed fracture (3) Altered mental status Qualifiers: Altered mental status type: unspecified Qualified Code(s): R41.82 - Altered mental status, unspecified <Joselito Best B - Last Filed: 10/28/18 13:55> (1) Bilateral ankle fractures Qualifiers: Encounter type: initial encounter Fracture type: closed Qualified Code(s): S82.891A - Other fracture of right lower leg, initial encounter for closed fracture; S82.892A - Other fracture of left lower leg, initial encounter for closed fracture (2) Multiple rib fractures Qualifiers: Encounter type: initial encounter Fracture type: closed Laterality: bilateral Qualified Code(s): S22.43XA - Multiple fractures of ribs, bilateral, initial encounter for closed fracture (3) Altered mental status Qualifiers: Altered mental status type: unspecified Qualified Code(s): R41.82 - Altered mental status, unspecified <Josie Brower R - Last Filed: 10/28/18 17:19> (1) Bilateral ankle fractures Qualifiers: Encounter type: initial encounter Fracture type: closed Qualified Code(s): S82.891A - Other fracture of right lower leg, initial encounter for closed fracture; S82.892A - Other fracture of left lower leg, initial encounter for closed fracture (2) Multiple rib fractures Qualifiers: Encounter type: initial encounter Fracture type: closed Laterality: bilateral Qualified Code(s): S22.43XA - Multiple fractures of ribs, bilateral, initial encounter for closed fracture (3) Altered mental status Qualifiers: Altered mental status type: unspecified Qualified Code(s): R41.82 - Altered mental status, unspecified
[2018-10-28] MEDS: dilTIAZem CD 240 MG Capsule PO SCH (10:02)
[2018-10-28] MEDS: Senna/Docusate Sodium 8.6/50 MG Tablet PO SCH ×2 (10:02→22:21)
[2018-10-28] MEDS: Furosemide 40 MG Tablet PO SCH (10:02)
[2018-10-28] MEDS: Metoprolol Tartrate 25 MG Tablet PO SCH ×3 (10:03→18:35)
--- NOTE | 2018-10-28 16:02 | P.PNPAL ---
Reason for Visit Reason for visit: a. To assist with evaluation and management of symptoms including: Pain, altered mental status, debility b. To assist medical decision maker(s) with: better understanding of current medical conditions; weighing benefits/burdens of medical treatment options; making medical treatment decisions. Subjective Subjective/Interval History: Follow up medically necessary for symptom management. Patient seen and examined in her room. She is alert and oriented to self, place and situation. Today patient is more conversational. She appears to be able to weigh benefits and burdens of treatment. Patient complaining of bilateral lower extremity pain rating it 8/10. Bedside RN aware and working of medicating patient. Pain managed with [place] 5mg- 10 mg q 4 hrs prn. Orthopedic consulted- recommended continuation of bilateral splints-and non weight bearing. EEG showing mild generalized slowing consistent with mild encephalopathy. Discussed discharge plan. Patient states that she will need help since she has bilateral ankle fractures. Her daughter works during the day and her son works at night. She will not have help during the day since her son will be sleeping/ resting. Patient is amenable to rehabilitation prior to being discharged home. She state that she wants to at least know how to transfer herself from bed to a wheelchair. Patient also states that her daughter Marilee Jacobson who is her HCS helps with making medical decisions for patient. According to patient, her daughter is in agreement with patient having rehabilitation first prior to going home. Assisted patient with completion of healthcare surrogate, she named her other daughter Elayne Gutierrez as her alternate Healthcare Surrogate and if bot her daughters and son are unwilling to serve or perform their duties as HCS she would like both her sons Daniel and Raf Jacobson to serve as other alternate HCSs. Family/Friend Interactions: No family at bedside. . Advance Directives Living Will: Copy in medical record Health Care Surrogate: Copy in medical record Advance Directives Date on File: 01/25/15 Health Care Surrogate Name and Number: Marilee Chou [phone] [email or web address]/ work/[phone] Documented care wishes:: Patient has a living will which states that if patient is in persistent vegetative state and "if my attending or treating physician and another consulting physician have determined that there is no reasonable medical probability of my recovery from such condition I direct that life-prolonging procedures be withheld or withdrawn when the application of such procedures would serve only to prolong artificially the process of dying, and that I be permitted to naturally with only the administration of medication or the performance of any medical procedure deemed necessary to provide me with comfort or to alleviate pain." . Objective Vital Signs: Vital Signs 10/27/18 16:00 10/27/18 16:30 10/27/18 18:17 Temperature 97.3 F L 97.7 F Pulse Rate 77 80 93 H Respiratory Rate 17 16 Blood Pressure 96/52 L 109/78 Pulse Oximetry 94 L 10/27/18 20:00 10/28/18 00:00 10/28/18 04:00 Temperature 98.5 F 97.1 F L 97.1 F L Pulse Rate 85 89 108 H Respiratory Rate 19 17 19 Blood Pressure 110/66 116/60 118/88 Pulse Oximetry 96 95 95 10/28/18 08:00 10/28/18 12:00 10/28/18 14:34 Temperature 97.9 F 97.9 F Pulse Rate 85 130 H Respiratory Rate 18 20 Blood Pressure 131/97 H 145/89 H Pulse Oximetry 93 L 93 L Intake & Output 10/27/18 10/28/18 10/28/18 18:59 06:59 18:59 Intake Total 980 / 980 750 / 750 Balance 980 / 980 750 / 750 Weight 48.5 kg Intake: IV 500 / 500 NS Inj 500 ML @ 1000 mls/hr IV. 500 / 500 SIG BOLUS SAIMA Rx#:[id number] Oral 480 / 480 750 / 750 Other: # Incontinent Voids 2 3 # Bowel Movements 1 Physical Exam: CONSTITUTIONAL/GENERAL: This is a an elderly, cachectic ill-looking patient in no acute distress TUBES/LINES/DRAINS: PIV, SKIN: No jaundice, rashes, or lesions. Ecchymoses on upper extremities. No wounds seen anteriorly. Skin temperature appropriate. Not diaphoretic. HEAD: Atraumatic. Normocephalic. EYES: Pupils equal and round and reactive. Extraocular motions intact. No scleral icterus. No injection or drainage. Fundi not examined. ENT: Hearing grossly normal. Nose without bleeding or purulent drainage. Dry lips NECK: Trachea midline. Supple, nontender. CARDIOVASCULAR: Iregular rate and rhythm. No JVD. Peripheral pulses symmetric. RESPIRATORY/CHEST: Symmetric, unlabored respirations. Diminished breath sounds. No wheezes, rales, or rhonchi. GASTROINTESTINAL: Abdomen soft, non-tender, nondistended. No guarding. Bowel sounds present. GENITOURINARY: Without palpable bladder distension. Grant catheter in place. MUSCULOSKELETAL: Extremities without clubbing, cyanosis. No mottling or clubbing. Splints to bilateral lower extremities and brace to left wrist LYMPHATICS: Did not assess. NEUROLOGICAL: Awake, oriented to self, place and situation. Follows commands with all 4 extremities, decreased strength to bilateral lower extremities and left upper extremity. PSYCHIATRIC: No obvious anxiety/depression. no apparent hallucinations or other psychotic thought process. Diagnostic Tests Laboratory: Laboratory Results - last 72 hr 10/25/18 10/25/18 10/25/18 12:30 15:30 15:30 WBC RBC Hgb Hct MCV MCH MCHC RDW Plt Count MPV Neut % (Auto) Lymph % (Auto) Elk % (Auto) Eos % (Auto) Baso % (Auto) Neut # (Auto) Lymph # (Auto) Elk # (Auto) Eos # (Auto) Baso # (Auto) WBC Differential Differential Comment Sodium Potassium Chloride Carbon Dioxide Anion Gap BUN Creatinine Estimated GFR Random Glucose Lactic Acid 1.0 Calcium Total Bilirubin AST ALT Alkaline Phosphatase Ammonia Troponin I 0.07 H Total Protein Albumin Vitamin D 25-Hydroxy Urine Opiates Screen Neg Acetaminophen Ur Barbiturates Screen Neg Ur Amphetamines Screen Neg U Benzodiazepines Scrn Neg Urine Cocaine Screen Neg U Cannabinoids Screen Neg Serum Alcohol 10/25/18 10/25/18 10/26/18 15:30 22:09 06:42 WBC RBC Hgb Hct MCV MCH MCHC RDW Plt Count MPV Neut % (Auto) Lymph % (Auto) Elk % (Auto) Eos % (Auto) Baso % (Auto) Neut # (Auto) Lymph # (Auto) Elk # (Auto) Eos # (Auto) Baso # (Auto) WBC Differential Differential Comment Sodium Potassium Chloride Carbon Dioxide Anion Gap BUN Creatinine Estimated GFR Random Glucose Lactic Acid Calcium Total Bilirubin AST ALT Alkaline Phosphatase Ammonia 16 Troponin I Cancelled 0.08 H Total Protein Albumin Vitamin D 25-Hydroxy Urine Opiates Screen Acetaminophen Less than 2.0 L Ur Barbiturates Screen Ur Amphetamines Screen U Benzodiazepines Scrn Urine Cocaine Screen U Cannabinoids Screen Serum Alcohol Less than 3 10/26/18 10/26/18 10/26/18 06:42 06:42 06:42 WBC 8.2 D RBC 4.27 Hgb 12.5 Hct 39.4 MCV 92.1 MCH 29.3 MCHC 31.8 L RDW 15.9 Plt Count 183 MPV 8.3 Neut % (Auto) 80.1 H Lymph % (Auto) 10.2 Elk % (Auto) 9.5 H Eos % (Auto) 0.0 Baso % (Auto) 0.2 Neut # (Auto) 6.6 Lymph # (Auto) 0.8 L Elk # (Auto) 0.8 Eos # (Auto) 0.0 Baso # (Auto) 0.0 WBC Differential . Differential Comment Auto diff final Sodium 144 Potassium 3.2 L D Chloride 108 H Carbon Dioxide 27.4 Anion Gap 9 BUN 22 H Creatinine 0.86 Estimated GFR 63 L Random Glucose 124 H Lactic Acid Calcium 8.5 Total Bilirubin 1.1 H AST 20 ALT 17 Alkaline Phosphatase 111 Ammonia Troponin I Total Protein 6.0 L Albumin 2.8 L Vitamin D 25-Hydroxy 35.7 Cancelled Urine Opiates Screen Acetaminophen Ur Barbiturates Screen Ur Amphetamines Screen U Benzodiazepines Scrn Urine Cocaine Screen U Cannabinoids Screen Serum Alcohol 10/27/18 10/27/18 10/27/18 06:34 06:34 06:34 WBC 7.1 RBC 3.80 L Hgb 11.2 L Hct 34.1 L MCV 89.6 MCH 29.5 MCHC 32.9 RDW 16.1 Plt Count 185 MPV 8.4 Neut % (Auto) 74.9 H Lymph % (Auto) 15.9 Elk % (Auto) 8.6 H Eos % (Auto) 0.3 Baso % (Auto) 0.3 Neut # (Auto) 5.3 Lymph # (Auto) 1.1 Elk # (Auto) 0.6 Eos # (Auto) 0.0 Baso # (Auto) 0.0 WBC Differential . Differential Comment Auto diff final Sodium 138 Potassium 3.8 Chloride 100 D Carbon Dioxide 26.9 Anion Gap 11 BUN 27 H Creatinine 1.22 H Estimated GFR 42 L Random Glucose 165 H Lactic Acid Calcium 7.8 L Total Bilirubin 0.5 AST 20 ALT 17 Alkaline Phosphatase 100 Ammonia 28 Troponin I Total Protein 5.8 L Albumin 2.4 L Vitamin D 25-Hydroxy Urine Opiates Screen Acetaminophen Ur Barbiturates Screen Ur Amphetamines Screen U Benzodiazepines Scrn Urine Cocaine Screen U Cannabinoids Screen Serum Alcohol 10/27/18 10/28/18 10/28/18 12:00 06:41 06:41 WBC 4.9 RBC 3.74 L Hgb 11.1 L 10.9 L Hct 34.7 L 33.9 L MCV 90.6 MCH 29.2 MCHC 32.2 RDW 16.6 Plt Count 182 MPV 8.2 Neut % (Auto) 66.4 Lymph % (Auto) 22.0 Elk % (Auto) 10.7 H Eos % (Auto) 0.5 Baso % (Auto) 0.4 Neut # (Auto) 3.3 Lymph # (Auto) 1.1 Elk # (Auto) 0.5 Eos # (Auto) 0.0 Baso # (Auto) 0.0 WBC Differential . Differential Comment Auto diff final Sodium 135 L Potassium 3.8 Chloride 98 Carbon Dioxide 30.0 Anion Gap 7 BUN 27 H Creatinine 0.96 Estimated GFR 56 L Random Glucose 85 Lactic Acid Calcium 8.2 L Total Bilirubin AST ALT Alkaline Phosphatase Ammonia Troponin I Total Protein Albumin Vitamin D 25-Hydroxy Urine Opiates Screen Acetaminophen Ur Barbiturates Screen Ur Amphetamines Screen U Benzodiazepines Scrn Urine Cocaine Screen U Cannabinoids Screen Serum Alcohol Result Diagrams: 10/28/18 06:41 10/28/18 06:41 Microbiology: Microbiology 10/27/18 13:15 Stool Occult Blood (JOSEF) - Final Stool Hemoccult negative Imaging: Cervical Spine CT 10/25/18 12:15 CONCLUSION: 1. No acute cervical spine abnormality is identified. 2. Multilevel degenerative disc disease similar to the prior examination. Chest X-Ray 10/25/18 12:15 CONCLUSION: Cardiomegaly with mild interstitial edema Left upper rib fractures as described above without pneumothorax. Head CT 10/25/18 12:15 CONCLUSION: 1. Negative for an acute process 2. No significant atrophy . Ankle X-Ray 10/25/18 12:17 CONCLUSION: Nondisplaced fracture lateral malleolus. Pelvis X-Ray 10/25/18 12:17 CONCLUSION: Under mineralized bones. No acute abnormality is identified. Assessment and Plan - Disease Oriented Problem List (1) Multiple rib fractures (2) Bilateral ankle fractures (3) Atrial fibrillation (4) Congestive heart failure (5) Elevated lactic acid level (6) Hypertension (7) Osteoporosis - Symptom Scale (1) Pain 0-10 Scale: 8 Comment: Patient has chronic back pain and he has a spinal stimulator. Recent left wrist fracture. Diagnostics test revealed bilateral ankle fractures and multiple rib fractures. (2) Altered mental status 0-10 Scale: Unable to quantify Comment: Patient has had progressive altered mental status (AMS). Came in for further evaluation of AMS and fall. (3) Debility 0-10 Scale: Unable to quantify Comment: Progressive. Ongoing multiple comorbidities and debility. Pertinent Non-Medical Issues: Psychosocial: Patient is . She has 2 adult daughters and 2 adult sons. Patient worked at [employer] in [place]-now retired. Spiritual: Patient is Rastafari Legal: Patient has a living will. Ethical issues impacting care: None identified at this time. Important Contacts: Healthcare surrogate -daughter- Marilee JacobsonKiZkru-[phone] home/[phone] work/[phone] on living will Daughter-Matt Mcdaniel-[phone] home/[phone] work Son-Daniel Jacobson Son-Raf Jacobson Prognosis: Mrs. Jacobson is an 16-year-old female with a past medical history significant for atrial fibrillation on Eliquis, congestive heart failure, hypertension, hyperlipidemia, osteoporosis, and chronic back pain with a spinal stimulator. Patient was brought to the emergency room on 10/25/18 by EMS for evaluation of altered mental status and patient had a fall today. Clinical course complicated with bilateral ankle fractures and multiple rib fractures. Given ongoing multiple comorbidities and debility, patient remains at high risk for further complications, deterioration and decline. . Code Status: No Code DNR Plan: PLAN: Legal decision maker: Patient came in with altered mental status. 10/28/18 patient is oriented to self, place and situation and appears to be able to weigh in burdens and benefits of treatment. Due to patient`s chief complaint of altered mental status on admission, recommending joint decision making with patient`s HCS Marilee Jacobson. Goals: Aggressive short of no code.Patient states that she will need help since she has bilateral ankle fractures. Patient want that she to at least be able to know how to transfer herself from bed to a wheelchair. Patient also states that her daughter Marilee Jacobson who is her HCS helps with making medical decisions for patient. According to patient, her daughter is in agreement with patient having rehabilitation first prior to going home. Assisted patient with completion of healthcare surrogate, she named her other daughter Elayne Gutierrez as her alternate Healthcare Surrogate and if both daughters and son are unwilling to serve or perform their duties as HCS she would like both her sons Daniel and Raf Jacobson to serve as other alternate HCSs. CODE STATUS: No code DNR SYMPTOMS: * Pain:Patient has chronic back pain and he has a spinal stimulator. Recent left wrist fracture. Diagnostics test revealed bilateral ankle fractures and multiple rib fractures. Patient takes Percocet at home. Patient has baclofen 10 mg po every 8 hours prn; morphine sulfate 0.5 mg - 1 mg IV push every 3 hours prn and 2 mg IVP every 3 hours for breakthrough pain. Patient complaining of pain to bilateral ankles. Pain medication appears adequate at this time. * Altered mental status: Patient has baseline of confusion but he has progressively worsened in the past [address] was negative for any acute processes. Unsure of etiology of altered mental status at this time. Patient is alert, oriented to self, place and situation today 10/28/18. * Debility: Progressive. Patient has multiple ongoing comorbidities. She was recently in rehab after a wrist fracture and CHF. She has also had multiple falls at home. Palliative care will continue to follow the patient during hospital course as condition evolves, to assist patient/decision-maker with understanding of their medical conditions, weighing benefits/burdens of treatment options, for clarification of goals of treatment. Additionally will assist with any symptoms of palliative concern Attestation Attestation: To help prompt me to consider important information that might be impacting today's encounter and assessment, information from prior notes written by myself or my colleagues may have been "brought forward" into today's note. My signature on this note, however, is an attestation that I personally performed the exam, history, and/or decision-making noted today, and, unless otherwise indicated, the interactions with patient, family, and staff as well as the review of records all occurred today. I also attest that the listed assessment and stated plan reflect my best clinical judgment today based on the combination of historical information, prior notes, and today's exam/ interactions. When time spent is documented, it refers only to time spent today by the signer, or if indicated, combined time spent today by collaborating physician/nurse practitioner.
--- NOTE | 2018-10-29 08:43 | P.PNFP ---
Subjective Interval history: No acute events overnight. Patient states her pain is currently well controlled and she has no complaints. Denies any chest pain, shortness of breath, abdominal pain. Patient had bowel movement yesterday. <Joselito Best B - 10/29/18 09:57> Results - Labs Result diagrams: 10/28/18 06:41 10/28/18 06:41 <Josie Brower R - 10/29/18 14:38> Physical Exam Vital signs: Vital Signs 10/28/18 16:00 10/28/18 20:00 10/29/18 00:00 Temperature 97.4 F L 98.1 F 98 F Pulse Rate 118 H 95 H 70 Respiratory Rate 18 18 18 Blood Pressure 111/80 107/57 L 98/64 L Pulse Oximetry 94 L 95 94 L 10/29/18 04:00 10/29/18 08:00 10/29/18 08:54 Temperature 97.3 F L 97.4 F L Pulse Rate 68 71 Respiratory Rate 18 20 Blood Pressure 123/78 131/81 Pulse Oximetry 95 96 95 Intake & Output 10/28/18 10/29/18 10/29/18 18:59 06:59 18:59 Intake Total 960 / 960 240 / 240 Output Total 2100 / 2100 600 / 600 Balance -1140 / -1140 -360 / -360 Weight 48.8 kg Intake: Oral 960 / 960 240 / 240 Output: Urine 2100 / 2100 600 / 600 Other: Date of Last Bowel Movement 10/27/18 10/28/18 # Bowel Movements 0 0 <Josie Brower R - 10/29/18 14:38> Vital Signs 10/28/18 09:00 10/28/18 12:00 10/28/18 14:34 Temperature 97.9 F Pulse Rate 95 H 128 H Respiratory Rate 20 Blood Pressure 145/89 H Pulse Oximetry 93 L 10/28/18 16:00 10/28/18 20:00 10/29/18 00:00 Temperature 97.4 F L 98.1 F 98 F Pulse Rate 118 H 95 H 70 Respiratory Rate 18 18 18 Blood Pressure 111/80 107/57 L 98/64 L Pulse Oximetry 94 L 95 94 L 10/29/18 04:00 Temperature 97.3 F L Pulse Rate 68 Respiratory Rate 18 Blood Pressure 123/78 Pulse Oximetry 95 Intake & Output 10/28/18 10/29/18 10/29/18 18:59 06:59 18:59 Intake Total 960 / 960 240 / 240 Output Total 2099 600 / 600 Balance -1140 / -1140 -360 / -360 Weight 48.8 kg Intake: Oral 960 / 960 240 / 240 Output: Urine 2099 600 / 600 Other: Date of Last Bowel Movement 10/27/18 # Bowel Movements 0 0 <Joselito Best Viky - 10/29/18 08:42> Narrative: GENERAL: Elderly white female lying in bed in no acute distress. Awake and alert and answering questions appropriately SKIN: Warm and dry. HEAD: Atraumatic. Normocephalic. EYES: Pupils equal and round. No scleral icterus. No injection or drainage. ENT: No nasal bleeding or discharge. Mucous membranes pink and moist. NECK: Trachea midline. No JVD. CARDIOVASCULAR: Irregularly irregular rhythm with a rate in the 90s. No murmurs appreciated RESPIRATORY: No accessory muscle use. Clear to auscultation. Breath sounds equal bilaterally. GASTROINTESTINAL: Abdomen soft, non-tender, nondistended. MUSCULOSKELETAL: Extremities without clubbing, cyanosis, or edema. Hard splints of the bilateral lower extremities from the mid tibia down. Adequate capillary refill in the toes, sensation intact, moving toes on command. NEUROLOGICAL: Awake and alert. Normal speech. <Joselito Best Viky - 10/29/18 09:57> Assessment and Plan - Assessment (1) Bilateral ankle fractures Code(s): S82.891A - Other fracture of right lower leg, initial encounter for closed fracture; S82.892A - Other fracture of left lower leg, initial encounter for closed fracture Status: Acute (2) Multiple rib fractures Code(s): S22.49XA - Multiple fractures of ribs, unspecified side, initial encounter for closed fracture Status: Acute (3) Altered mental status Code(s): R41.82 - Altered mental status, unspecified Status: Acute (4) Hypotension Code(s): I95.9 - Hypotension, unspecified Status: Acute (5) Fall Code(s): W19.XXXA - Unspecified fall, initial encounter Status: Acute (6) Afib Code(s): I48.91 - Unspecified atrial fibrillation Status: Acute (7) Congestive heart failure Code(s): I50.9 - Heart failure, unspecified Status: Acute (8) Hypertension Code(s): I10 - Essential (primary) hypertension Status: Acute (9) Nutrition, metabolism, and development symptoms Code(s): R63.8 - Other symptoms and signs concerning food and fluid intake Status: Acute <Josie Brower - 10/29/18 14:38> (1) Bilateral ankle fractures Code(s): S82.891A - Other fracture of right lower leg, initial encounter for closed fracture; S82.892A - Other fracture of left lower leg, initial encounter for closed fracture Status: Acute Plan: Known history of osteoporosis and takes ibandronate monthly Right ankle x-ray showed nondisplaced fracture to the medial malleolus and posterior tibial fracture which extends into the tibiotalar joint, oblique minimally displaced fracture of the distal fibular metaphysis Left ankle x-ray shows nondisplaced fracture of the lateral malleolus Orthopedic surgery consult recommending no surgery and rehab -awaiting placement as patient is medically cleared for discharge Pain currently well controlled on [place] pain scale (2) Multiple rib fractures Code(s): S22.49XA - Multiple fractures of ribs, unspecified side, initial encounter for closed fracture Status: Acute Plan: Patient's daughter reported that patient hit her chest during her fall this morning Patient's family reports that she endorsed this No overlying bruises/skin changes on physical exam Chest x-ray on admission showed fractures of the fourth, fifth, sixth ribs anteriorly on the left Pain control as above (3) Altered mental status Code(s): R41.82 - Altered mental status, unspecified Status: Acute Plan: Currently resolved (4) Hypotension Code(s): I95.9 - Hypotension, unspecified Status: Acute Plan: Resolved (5) Fall Code(s): W19.XXXA - Unspecified fall, initial encounter Status: Acute Plan: Head CT, cervical spine CT, pelvis x-ray unremarkable See plan below for ankle x-ray, chest x-ray findings (6) Afib Code(s): I48.91 - Unspecified atrial fibrillation Status: Acute Plan: Known history of A. fib Takes metoprolol, Cardizem Increase metoprolol to 3 times daily from twice daily, rate better controlled today Continuing Eliquis (7) Congestive heart failure Code(s): I50.9 - Heart failure, unspecified Status: Acute Plan: Known history of CHF Takes metoprolol, 80 mg Lasix, Cardizem Decreased Lasix to 40 mg on 10/27 as she had a small increase in her creatinine (8) Hypertension Code(s): I10 - Essential (primary) hypertension Status: Acute Plan: Reported history of hypertension Takes metoprolol, Cardizem, Lasix See plan above (9) Nutrition, metabolism, and development symptoms Code(s): R63.8 - Other symptoms and signs concerning food and fluid intake Status: Acute Plan: Oral fluids Regular diet No significant electrolyte abnormalities on admission Continuing home Eliquis for DVT prophylaxis <Joselito Best - 10/29/18 09:54> - Assessment and Plan 78-year-old female with a history of CHF, A. fib, hypertension, osteoporosis presented to the emergency room after week history of progressive altered mental status with a fall on the day of presentation. Patient was found to have multiple rib fractures, bilateral ankle fractures. Orthopedic surgery consulted and recommending no surgery, will need rehab. Other imaging including a head CT, cervical spine CT, pelvis x-ray were negative. Palliative care consulted to clarify goals of care. Case management consulted for placement. Pain currently well controlled on p.o. medications. Medically cleared for discharge <Joselito Best - 10/29/18 09:57> - Attending Attestation Patient seen and examined. Agree with assessment and plan. Pt is medically stable for discharge and awaiting inpatient rehab or SNF placement. <Josie Brower R - 10/29/18 14:38> <Joselito Best - Last Filed: 10/29/18 09:54> (1) Bilateral ankle fractures Qualifiers: Encounter type: initial encounter Fracture type: closed Qualified Code(s): S82.891A - Other fracture of right lower leg, initial encounter for closed fracture; S82.892A - Other fracture of left lower leg, initial encounter for closed fracture (2) Multiple rib fractures Qualifiers: Encounter type: initial encounter Fracture type: closed Laterality: bilateral Qualified Code(s): S22.43XA - Multiple fractures of ribs, bilateral, initial encounter for closed fracture (3) Altered mental status Qualifiers: Altered mental status type: unspecified Qualified Code(s): R41.82 - Altered mental status, unspecified <Josie Brower R - Last Filed: 10/29/18 14:38> (1) Bilateral ankle fractures Qualifiers: Encounter type: initial encounter Fracture type: closed Qualified Code(s): S82.891A - Other fracture of right lower leg, initial encounter for closed fracture; S82.892A - Other fracture of left lower leg, initial encounter for closed fracture (2) Multiple rib fractures Qualifiers: Encounter type: initial encounter Fracture type: closed Laterality: bilateral Qualified Code(s): S22.43XA - Multiple fractures of ribs, bilateral, initial encounter for closed fracture (3) Altered mental status Qualifiers: Altered mental status type: unspecified Qualified Code(s): R41.82 - Altered mental status, unspecified <Joselito Best - Last Filed: 10/29/18 09:54> (1) Bilateral ankle fractures Qualifiers: Encounter type: initial encounter Fracture type: closed Qualified Code(s): S82.891A - Other fracture of right lower leg, initial encounter for closed fracture; S82.892A - Other fracture of left lower leg, initial encounter for closed fracture (2) Multiple rib fractures Qualifiers: Encounter type: initial encounter Fracture type: closed Laterality: bilateral Qualified Code(s): S22.43XA - Multiple fractures of ribs, bilateral, initial encounter for closed fracture (3) Altered mental status Qualifiers: Altered mental status type: unspecified Qualified Code(s): R41.82 - Altered mental status, unspecified <Josie Brower - Last Filed: 10/29/18 14:38> (1) Bilateral ankle fractures Qualifiers: Encounter type: initial encounter Fracture type: closed Qualified Code(s): S82.891A - Other fracture of right lower leg, initial encounter for closed fracture; S82.892A - Other fracture of left lower leg, initial encounter for closed fracture (2) Multiple rib fractures Qualifiers: Encounter type: initial encounter Fracture type: closed Laterality: bilateral Qualified Code(s): S22.43XA - Multiple fractures of ribs, bilateral, initial encounter for closed fracture (3) Altered mental status Qualifiers: Altered mental status type: unspecified Qualified Code(s): R41.82 - Altered mental status, unspecified
[2018-10-29] MEDS: Senna/Docusate Sodium 8.6/50 MG Tablet PO SCH ×2 (09:45→21:08)
[2018-10-29] MEDS: Metoprolol Tartrate 25 MG Tablet PO SCH ×3 (09:45→18:18)
[2018-10-29] MEDS: Furosemide 40 MG Tablet PO SCH (09:45)
[2018-10-29] MEDS: dilTIAZem CD 240 MG Capsule PO SCH (09:45)
--- NOTE | 2018-10-29 16:18 | P.PNPAL ---
Reason for Visit Reason for visit: a. To assist with evaluation and management of symptoms including: Pain, altered mental status, debility b. To assist medical decision maker(s) with: better understanding of current medical conditions; weighing benefits/burdens of medical treatment options; making medical treatment decisions. Subjective Subjective/Interval History: Follow up medically necessary for symptom management. Patient is in bed in her room. Alert and oriented to self, place and situation. Patient endorsing nausea. Patient has Zofran IV push prn for nausea but a peripheral IV had been discontinued per physician's orders. Bedside RN communicating with physician. Patient denies constipation. She also states that occasionally she feels pain to the bilateral ankles. Pain is currently managed with hydrocodone/ acetaminophen 10/325 q. 4 hrs prn, she has required x6 doses in the past 24 hours. Per patient, when she is medicated, her pain is tolerable. Physical therapy following with patient, recommending PT at rehab. Case management following-patient probably discharging to [facility] inpatient rehab or [facility] as a second choice. Case discussed with bedside RN. Family/Friend Interactions: No family at bedside. . Advance Directives Living Will: Copy in medical record Health Care Surrogate: Copy in medical record Advance Directives Date on File: 01/25/15 Health Care Surrogate Name and Number: Marilee Chou [phone] organ/ work/[phone] Documented care wishes:: Patient has a living will which states that if patient is in persistent vegetative state and "if my attending or treating physician and another consulting physician have determined that there is no reasonable medical probability of my recovery from such condition I direct that life-prolonging procedures be withheld or withdrawn when the application of such procedures would serve only to prolong artificially the process of dying, and that I be permitted to naturally with only the administration of medication or the performance of any medical procedure deemed necessary to provide me with comfort or to alleviate pain." . Objective Vital Signs: Vital Signs 10/28/18 20:00 10/29/18 00:00 10/29/18 04:00 Temperature 98.1 F 98 F 97.3 F L Pulse Rate 95 H 70 68 Respiratory Rate 18 18 18 Blood Pressure 107/57 L 98/64 L 123/78 Pulse Oximetry 95 94 L 95 10/29/18 08:00 10/29/18 08:54 10/29/18 12:00 Temperature 97.4 F L 97.6 F Pulse Rate 71 131 H Respiratory Rate 20 20 Blood Pressure 131/81 121/81 Pulse Oximetry 96 95 96 Intake & Output 10/28/18 10/29/18 10/29/18 18:59 06:59 18:59 Intake Total 960 / 960 240 / 240 Output Total 2100 / 2100 600 / 600 700 / 700 Balance -1140 / -1140 -360 / -360 -700 / -700 Weight 48.8 kg Intake: Oral 960 / 960 240 / 240 Output: Urine 2099 / 2099 600 / 600 700 / 700 Other: Date of Last Bowel Movement 10/27/18 10/28/18 # Bowel Movements 0 0 Physical Exam: CONSTITUTIONAL/GENERAL: This is a an elderly, cachectic ill-looking patient in no acute distress TUBES/LINES/DRAINS: SKIN: No jaundice, rashes, or lesions. Ecchymoses on upper extremities. Normothermic HEAD: Atraumatic. Normocephalic. EYES: Pupils equal and round and reactive. Extraocular motions intact. No scleral icterus. Fundi not examined. ENT: Hearing grossly normal. Nose without bleeding or purulent drainage. NECK: Trachea midline. Supple, nontender. CARDIOVASCULAR: Iregular rate and rhythm. No JVD. Peripheral pulses symmetric. RESPIRATORY/CHEST: Symmetric, unlabored respirations. Diminished breath sounds. No wheezes, rales, or rhonchi. GASTROINTESTINAL: Abdomen soft, non-tender, nondistended. No guarding. Bowel sounds present. GENITOURINARY: Without palpable bladder distension. MUSCULOSKELETAL: Extremities without clubbing, cyanosis. No mottling or clubbing. Splints to bilateral lower extremities and brace to left wrist LYMPHATICS: Did not assess. NEUROLOGICAL: Awake, oriented to self, place and situation. Follows commands with all 4 extremities, decreased strength to bilateral lower extremities and left upper extremity. PSYCHIATRIC: No obvious anxiety/depression. no apparent hallucinations or other psychotic thought process. Diagnostic Tests Laboratory: Laboratory Results - last 72 hr 10/27/18 10/27/18 10/27/18 06:34 06:34 06:34 WBC 7.1 RBC 3.80 L Hgb 11.2 L Hct 34.1 L MCV 89.6 MCH 29.5 MCHC 32.9 RDW 16.1 Plt Count 185 MPV 8.4 Neut % (Auto) 74.9 H Lymph % (Auto) 15.9 Cocke % (Auto) 8.6 H Eos % (Auto) 0.3 Baso % (Auto) 0.3 Neut # (Auto) 5.3 Lymph # (Auto) 1.1 [place] # (Auto) 0.6 Eos # (Auto) 0.0 Baso # (Auto) 0.0 WBC Differential . Differential Comment Auto diff final Sodium 138 Potassium 3.8 Chloride 100 D Carbon Dioxide 26.9 Anion Gap 11 BUN 27 H Creatinine 1.22 H Estimated GFR 42 L Random Glucose 165 H Calcium 7.8 L Total Bilirubin 0.5 AST 20 ALT 17 Alkaline Phosphatase 100 Ammonia 28 Total Protein 5.8 L Albumin 2.4 L 10/27/18 10/28/18 10/28/18 12:00 06:41 06:41 WBC 4.9 RBC 3.74 L Hgb 11.1 L 10.9 L Hct 34.7 L 33.9 L MCV 90.6 MCH 29.2 MCHC 32.2 RDW 16.6 Plt Count 182 MPV 8.2 Neut % (Auto) 66.4 Lymph % (Auto) 22.0 [place] % (Auto) 10.7 H Eos % (Auto) 0.5 Baso % (Auto) 0.4 Neut # (Auto) 3.3 Lymph # (Auto) 1.1 [place] # (Auto) 0.5 Eos # (Auto) 0.0 Baso # (Auto) 0.0 WBC Differential . Differential Comment Auto diff final Sodium 135 L Potassium 3.8 Chloride 98 Carbon Dioxide 30.0 Anion Gap 7 BUN 27 H Creatinine 0.96 Estimated GFR 56 L Random Glucose 85 Calcium 8.2 L Total Bilirubin AST ALT Alkaline Phosphatase Ammonia Total Protein Albumin Result Diagrams: 10/28/18 06:41 10/28/18 06:41 Microbiology: Microbiology 10/27/18 13:15 Stool Occult Blood (JOSEF) - Final Stool Hemoccult negative Imaging: Cervical Spine CT 10/25/18 12:15 CONCLUSION: 1. No acute cervical spine abnormality is identified. 2. Multilevel degenerative disc disease similar to the prior examination. Chest X-Ray 10/25/18 12:15 CONCLUSION: Cardiomegaly with mild interstitial edema Left upper rib fractures as described above without pneumothorax. Head CT 10/25/18 12:15 CONCLUSION: 1. Negative for an acute process 2. No significant atrophy . Ankle X-Ray 10/25/18 12:17 CONCLUSION: Nondisplaced fracture lateral malleolus. Pelvis X-Ray 10/25/18 12:17 CONCLUSION: Under mineralized bones. No acute abnormality is identified. Assessment and Plan - Disease Oriented Problem List (1) Multiple rib fractures (2) Bilateral ankle fractures (3) Atrial fibrillation (4) Congestive heart failure (5) Elevated lactic acid level (6) Hypertension (7) Osteoporosis - Symptom Scale (1) Pain Comment: Patient has chronic back pain and he has a spinal stimulator. Recent left wrist fracture. Diagnostics test revealed bilateral ankle fractures and multiple rib fractures. (2) Altered mental status 0-10 Scale: Unable to quantify Comment: Patient has had progressive altered mental status (AMS). Came in for further evaluation of AMS and fall. (3) Debility 0-10 Scale: Unable to quantify Comment: Progressive. Ongoing multiple comorbidities and debility. Pertinent Non-Medical Issues: Psychosocial: Patient is . She has 2 adult daughters and 2 adult sons. Patient worked at [employer] in [place]-now retired. Spiritual: Patient is [employer] Legal: Patient has a living will. Ethical issues impacting care: None identified at this time. Important Contacts: Healthcare surrogate -daughter- Marilee JacobsonYfThgj-[phone] home/[phone] work/[phone] on living will Daughter-Matt Mcdaniel-[phone] home/[phone] work Son-Daniel Jacobson Son-Raf Jacobson Prognosis: Mrs. Jacobson is an 16-year-old female with a past medical history significant for atrial fibrillation on Eliquis, congestive heart failure, hypertension, hyperlipidemia, osteoporosis, and chronic back pain with a spinal stimulator. Patient was brought to the emergency room on 10/25/18 by EMS for evaluation of altered mental status and patient had a fall today. Clinical course complicated with bilateral ankle fractures and multiple rib fractures. Given ongoing multiple comorbidities and debility, patient remains at high risk for further complications, deterioration and decline. . Code Status: No Code DNR Plan: PLAN: Legal decision maker: Patient came in with altered mental status. 10/28/18 patient is oriented to self, place and situation and appears to be able to weigh in burdens and benefits of treatment. Due to patient`s chief complaint of altered mental status on admission, recommending joint decision making with patient`s [facility] Marilee Jacobson. Goals: Aggressive short of no code. Plan is for patient to be discharged to rehab which she is amenable to. CODE STATUS: No code DNR SYMPTOMS: * Pain:Patient has chronic back pain and he has a spinal stimulator. Recent left wrist fracture. Diagnostics test revealed bilateral ankle fractures and multiple rib fractures. Patient takes Percocet at home. Patient has baclofen 10 mg po every 8 hours prn; morphine sulfate 0.5 mg - 1 mg IV push every 3 hours prn and 2 mg IVP every 3 hours for breakthrough pain. Patient complaining of pain to bilateral ankles. Pain medication appears adequate at this time. * Altered mental status: Patient has baseline of confusion but he has progressively worsened in the past [address] was negative for any acute processes. Unsure of etiology of altered mental status at this time. Patient is alert, oriented to self, place and situation today 10/29/18. Resolved. * Debility: Progressive. Patient has multiple ongoing comorbidities. She was recently in rehab after a wrist fracture and CHF. She has also had multiple falls at home. Palliative care will continue to follow the patient during hospital course as condition evolves, to assist patient/decision-maker with understanding of their medical conditions, weighing benefits/burdens of treatment options, for clarification of goals of treatment. Additionally will assist with any symptoms of palliative concern Attestation Attestation: To help prompt me to consider important information that might be impacting today's encounter and assessment, information from prior notes written by myself or my colleagues may have been "brought forward" into today's note. My signature on this note, however, is an attestation that I personally performed the exam, history, and/or decision-making noted today, and, unless otherwise indicated, the interactions with patient, family, and staff as well as the review of records all occurred today. I also attest that the listed assessment and stated plan reflect my best clinical judgment today based on the combination of historical information, prior notes, and today's exam/ interactions. When time spent is documented, it refers only to time spent today by the signer, or if indicated, combined time spent today by collaborating physician/nurse practitioner.
[2018-10-30] MEDS: Senna/Docusate Sodium 8.6/50 MG Tablet PO SCH ×2 (08:39→20:50)
[2018-10-30] MEDS: Furosemide 40 MG Tablet PO SCH (08:39)
[2018-10-30] MEDS: dilTIAZem CD 240 MG Capsule PO SCH (08:39)
[2018-10-30] MEDS: Metoprolol Tartrate 25 MG Tablet PO SCH ×3 (08:39→17:58)
--- NOTE | 2018-10-30 13:11 | P.PNPAL ---
Reason for Visit Reason for visit: a. To assist with evaluation and management of symptoms including: Pain, altered mental status, debility b. To assist medical decision maker(s) with: better understanding of current medical conditions; weighing benefits/burdens of medical treatment options; making medical treatment decisions. Subjective Subjective/Interval History: Follow up medically necessary for symptom management. Patient seen and examined in the room. Patient is currently in bed, requesting if she would be assisted with transferring out of bed to a recliner chair. Patient states that she is tired of being in bed. She is endorsing pain to the bilateral ankles though she is occasionally dozing off during conversation. Patient is not showing any signs of pain and discomfort. Hydrocodone has been discontinued and patient has been started on oxycodone/acetaminophen 5/325 - 10/325 every 6 hours as needed. She denies nausea at this time. Patient is more concerned now about discharging to rehabilitation. Case discussed with bedside RN and Case Management. Family/Friend Interactions: No family at bedside. . Advance Directives Living Will: Copy in medical record Health Care Surrogate: Copy in medical record Advance Directives Date on File: 01/25/15 Health Care Surrogate Name and Number: Marilee Chou [phone] [place]/ work/[phone] Documented care wishes:: Patient has a living will which states that if patient is in persistent vegetative state and "if my attending or treating physician and another consulting physician have determined that there is no reasonable medical probability of my recovery from such condition I direct that life-prolonging procedures be withheld or withdrawn when the application of such procedures would serve only to prolong artificially the process of dying, and that I be permitted to naturally with only the administration of medication or the performance of any medical procedure deemed necessary to provide me with comfort or to alleviate pain." . Objective Vital Signs: Vital Signs 10/29/18 16:00 10/29/18 17:11 10/29/18 20:00 Temperature 97.9 F 97.4 F L Pulse Rate 113 H 80 Respiratory Rate 20 20 Blood Pressure 123/82 133/64 Pulse Oximetry 96 96 96 10/30/18 00:00 10/30/18 04:00 10/30/18 08:00 Temperature 97.6 F 97.2 F L 97.2 F L Pulse Rate 79 92 H 114 H Respiratory Rate 20 20 18 Blood Pressure 115/72 125/78 126/90 Pulse Oximetry 96 93 L 94 L Intake & Output 10/29/18 10/30/18 10/30/18 18:59 06:59 18:59 Intake Total 480 / 480 240 / 240 Output Total 3000 / 3000 575 / 575 Balance -2520 / -2520 -335 / -335 Weight 49.6 kg Intake: Oral 480 / 480 240 / 240 Output: Urine 3000 / 3000 575 / 575 Other: Date of Last Bowel Movement 10/28/18 10/28/18 10/29/18 # Bowel Movements 1 0 Physical Exam: CONSTITUTIONAL/GENERAL: This is a an elderly, cachectic ill-looking patient in no acute distress TUBES/LINES/DRAINS: SKIN: No jaundice, rashes, or lesions. Ecchymoses on upper extremities. Normothermic HEAD: Atraumatic. Normocephalic. EYES: Pupils equal and round and reactive. Extraocular motions intact. No scleral icterus. Fundi not examined. ENT: Hearing grossly normal. Nose without bleeding or purulent drainage. NECK: Trachea midline. Supple, nontender. CARDIOVASCULAR: Iregular rate and rhythm. No JVD. Peripheral pulses symmetric. RESPIRATORY/CHEST: Symmetric, unlabored respirations. Diminished breath sounds. GASTROINTESTINAL: Abdomen soft, non-tender, nondistended. No guarding. Bowel sounds present. GENITOURINARY: Without palpable bladder distension. MUSCULOSKELETAL: Extremities without clubbing, cyanosis. No mottling or clubbing. Splints to bilateral lower extremities and brace to left wrist LYMPHATICS: Did not assess. NEUROLOGICAL: Awake, oriented to self, place and situation. Follows commands with all 4 extremities, decreased strength to bilateral lower extremities and left upper extremity. PSYCHIATRIC: No obvious anxiety/depression. no apparent hallucinations or other psychotic thought process. Diagnostic Tests Laboratory: Laboratory Results - last 72 hr 10/28/18 10/28/18 06:41 06:41 WBC 4.9 RBC 3.74 L Hgb 10.9 L Hct 33.9 L MCV 90.6 MCH 29.2 MCHC 32.2 RDW 16.6 Plt Count 182 MPV 8.2 Neut % (Auto) 66.4 Lymph % (Auto) 22.0 Boyd % (Auto) 10.7 H Eos % (Auto) 0.5 Baso % (Auto) 0.4 Neut # (Auto) 3.3 Lymph # (Auto) 1.1 Boyd # (Auto) 0.5 Eos # (Auto) 0.0 Baso # (Auto) 0.0 WBC Differential . Differential Comment Auto diff final Sodium 135 L Potassium 3.8 Chloride 98 Carbon Dioxide 30.0 Anion Gap 7 BUN 27 H Creatinine 0.96 Estimated GFR 56 L Random Glucose 85 Calcium 8.2 L Result Diagrams: 10/28/18 06:41 10/28/18 06:41 Microbiology: Microbiology 10/27/18 13:15 Stool Occult Blood (JOSEF) - Final Stool Hemoccult negative Imaging: Cervical Spine CT 10/25/18 12:15 CONCLUSION: 1. No acute cervical spine abnormality is identified. 2. Multilevel degenerative disc disease similar to the prior examination. Chest X-Ray 10/25/18 12:15 CONCLUSION: Cardiomegaly with mild interstitial edema Left upper rib fractures as described above without pneumothorax. Head CT 10/25/18 12:15 CONCLUSION: 1. Negative for an acute process 2. No significant atrophy . Ankle X-Ray 10/25/18 12:17 CONCLUSION: Nondisplaced fracture lateral malleolus. Pelvis X-Ray 10/25/18 12:17 CONCLUSION: Under mineralized bones. No acute abnormality is identified. Assessment and Plan - Disease Oriented Problem List (1) Multiple rib fractures (2) Bilateral ankle fractures (3) Atrial fibrillation (4) Congestive heart failure (5) Elevated lactic acid level (6) Hypertension (7) Osteoporosis - Symptom Scale (1) Pain Comment: Patient has chronic back pain and he has a spinal stimulator. Recent left wrist fracture. Diagnostics test revealed bilateral ankle fractures and multiple rib fractures. (2) Altered mental status Comment: Patient has had progressive altered mental status (AMS). Came in for further evaluation of AMS and fall. (3) Debility Comment: Progressive. Ongoing multiple comorbidities and debility. Pertinent Non-Medical Issues: Psychosocial: Patient is . She has 2 adult daughters and 2 adult sons. Patient worked at [employer] in [place]-now retired. Spiritual: Patient is Ep[employer]alian Legal: Patient has a living will. Ethical issues impacting care: None identified at this time. Important Contacts: Healthcare surrogate -daughter- Marilee JacobsonQmAauh-[phone] home/[phone] work/[phone] on living will Daughter-Matt Mcdaniel-[phone] home/[phone] work Son-Daniel Jacobson Son-Raf Jacobson Prognosis: Mrs. Jacobson is an 16-year-old female with a past medical history significant for atrial fibrillation on Eliquis, congestive heart failure, hypertension, hyperlipidemia, osteoporosis, and chronic back pain with a spinal stimulator. Patient was brought to the emergency room on 10/25/18 by EMS for evaluation of altered mental status and patient had a fall today. Clinical course complicated with bilateral ankle fractures and multiple rib fractures. Given ongoing multiple comorbidities and debility, patient remains at high risk for further complications, deterioration and decline. . Code Status: No Code DNR Plan: PLAN: Legal decision maker: Patient came in with altered mental status. 10/28/18 patient is oriented to self, place and situation and appears to be able to weigh in burdens and benefits of treatment. Due to patient`s chief complaint of altered mental status on admission, recommending joint decision making with patient`s [facility] Marilee Jacobson. Goals: Aggressive short of no code. Plan is for patient to be discharged to rehab which she is amenable to. CODE STATUS: No code DNR SYMPTOMS: * Pain:Patient has chronic back pain and he has a spinal stimulator. Recent left wrist fracture. Diagnostics test revealed bilateral ankle fractures and multiple rib fractures. Patient takes Percocet at home. Patient has baclofen 10 mg po every 8 hours prn; Patient complaining of pain to bilateral ankles though she is dozing off during conversation and not showing signs of pain. Hydrocodone is been discontinued and patient has been started on Percocet. Monitor bowel movements, patient is required multiple doses of narcotics in the past 24 hours. * Altered mental status: Patient has baseline of confusion but he has progressively worsened in the past [address] was negative for any acute processes. Unsure of etiology of altered mental status at this time. Patient is alert, oriented to self, place and situation today 10/29/18. Resolved. * Debility: Progressive. Patient has multiple ongoing comorbidities. She was recently in rehab after a wrist fracture and CHF. She has also had multiple falls at home. Plan is for patient to be discharged to a rehabilitation facility. Palliative care will continue to follow the patient during hospital course as condition evolves, to assist patient/decision-maker with understanding of their medical conditions, weighing benefits/burdens of treatment options, for clarification of goals of treatment. Additionally will assist with any symptoms of palliative concern Attestation Attestation: To help prompt me to consider important information that might be impacting today's encounter and assessment, information from prior notes written by myself or my colleagues may have been "brought forward" into today's note. My signature on this note, however, is an attestation that I personally performed the exam, history, and/or decision-making noted today, and, unless otherwise indicated, the interactions with patient, family, and staff as well as the review of records all occurred today. I also attest that the listed assessment and stated plan reflect my best clinical judgment today based on the combination of historical information, prior notes, and today's exam/ interactions. When time spent is documented, it refers only to time spent today by the signer, or if indicated, combined time spent today by collaborating physician/nurse practitioner.
--- NOTE | 2018-10-30 14:01 | P.PNFP ---
Subjective Interval history: No acute events overnight. Patient states that she was able to get up to a chair with assistance yesterday. She has no complaints currently denies any chest pain, shortness of breath, abdominal pain, diarrhea or constipation. States she is eating or drinking without difficulty. <NasirJoselito B - 10/30/18 14:34> Results - Labs Result diagrams: 10/28/18 06:41 10/28/18 06:41 <Josie Brower - 10/31/18 09:33> Physical Exam Vital signs: Vital Signs 10/30/18 12:00 10/30/18 16:00 10/30/18 20:00 Temperature 97.6 F 98.3 F 97.7 F Pulse Rate 100 H 73 77 Respiratory Rate 15 16 17 Blood Pressure 113/80 126/79 135/68 Pulse Oximetry 95 95 94 L 10/30/18 23:58 10/31/18 04:00 10/31/18 08:00 Temperature 98 F 97.8 F 97.6 F Pulse Rate 75 107 H 69 Respiratory Rate 17 18 18 Blood Pressure 128/76 138/84 114/94 H Pulse Oximetry 94 L 94 L 93 L Intake & Output 10/30/18 10/31/18 10/31/18 18:59 06:59 18:59 Intake Total 240 / 240 Output Total 1275 / 1275 700 / 700 Balance -1275 / -1275 -460 / -460 Weight 50 kg Intake: Oral 240 / 240 Output: Urine 1275 / 1275 700 / 700 Other: Date of Last Bowel Movement 10/29/18 # Bowel Movements 0 <LeonardaJosie R - 10/31/18 09:33> Vital Signs 10/29/18 16:00 10/29/18 17:11 10/29/18 20:00 Temperature 97.9 F 97.4 F L Pulse Rate 113 H 80 Respiratory Rate 20 20 Blood Pressure 123/82 133/64 Pulse Oximetry 96 96 96 10/30/18 00:00 10/30/18 04:00 10/30/18 08:00 Temperature 97.6 F 97.2 F L 97.2 F L Pulse Rate 79 92 H 114 H Respiratory Rate 20 20 18 Blood Pressure 115/72 125/78 126/90 Pulse Oximetry 96 93 L 94 L 10/30/18 12:00 Temperature 97.6 F Pulse Rate 100 H Respiratory Rate 15 Blood Pressure 113/80 Pulse Oximetry 95 Intake & Output 10/29/18 10/30/18 10/30/18 18:59 06:59 18:59 Intake Total 480 / 480 240 / 240 Output Total 3000 / 3000 575 / 575 Balance -2520 / -2520 -335 / -335 Weight 49.6 kg Intake: Oral 480 / 480 240 / 240 Output: Urine 3000 / 3000 575 / 575 Other: Date of Last Bowel Movement 10/28/18 10/28/18 10/29/18 # Bowel Movements 1 0 <Joselito Best - 10/30/18 14:01> Narrative: GENERAL: Elderly white female lying in bed in no acute distress. Awake and alert and answering questions appropriately SKIN: Warm and dry. HEAD: Atraumatic. Normocephalic. EYES: Pupils equal and round. No scleral icterus. No injection or drainage. ENT: No nasal bleeding or discharge. Mucous membranes pink and moist. NECK: Trachea midline. No JVD. CARDIOVASCULAR: Irregularly irregular rhythm with a rate in the 90s. No murmurs appreciated RESPIRATORY: No accessory muscle use. Clear to auscultation. Breath sounds equal bilaterally. GASTROINTESTINAL: Abdomen soft, non-tender, nondistended. MUSCULOSKELETAL: Extremities without clubbing, cyanosis, or edema. Hard splints of the bilateral lower extremities from the mid tibia down. Adequate capillary refill in the toes, sensation intact, moving toes on command. Moving legs around in bed more comfortably today. NEUROLOGICAL: Awake and alert. Normal speech. <Joselito Best - 10/30/18 14:34> Assessment and Plan - Assessment (1) Bilateral ankle fractures Code(s): S82.891A - Other fracture of right lower leg, initial encounter for closed fracture; S82.892A - Other fracture of left lower leg, initial encounter for closed fracture Status: Acute (2) Multiple rib fractures Code(s): S22.49XA - Multiple fractures of ribs, unspecified side, initial encounter for closed fracture Status: Acute (3) Altered mental status Code(s): R41.82 - Altered mental status, unspecified Status: Acute (4) Hypotension Code(s): I95.9 - Hypotension, unspecified Status: Acute (5) Fall Code(s): W19.XXXA - Unspecified fall, initial encounter Status: Acute (6) Afib Code(s): I48.91 - Unspecified atrial fibrillation Status: Acute (7) Congestive heart failure Code(s): I50.9 - Heart failure, unspecified Status: Acute (8) Hypertension Code(s): I10 - Essential (primary) hypertension Status: Acute (9) Nutrition, metabolism, and development symptoms Code(s): R63.8 - Other symptoms and signs concerning food and fluid intake Status: Acute <Josie Brower R - 10/31/18 09:33> (1) Bilateral ankle fractures Code(s): S82.891A - Other fracture of right lower leg, initial encounter for closed fracture; S82.892A - Other fracture of left lower leg, initial encounter for closed fracture Status: Acute Plan: Orthopedic surgery consult recommending no surgery and rehab -awaiting placement as patient is medically cleared for discharge Patient continuing to have a pain scale of 7 or higher. Switching her pain scale to Percocet as she states she is chronically on Percocet at home. (2) Multiple rib fractures Code(s): S22.49XA - Multiple fractures of ribs, unspecified side, initial encounter for closed fracture Status: Acute Plan: Chest x-ray on admission showed fractures of the fourth, fifth, sixth ribs anteriorly on the left Pain control as above (3) Altered mental status Code(s): R41.82 - Altered mental status, unspecified Status: Acute Plan: Patient presented with progressive altered mental status Currently resolved, family reported poor p.o. intake so malnutrition/metabolic disturbances may have been a component Currently eating and drinking well and has gained weight during this hospitalization. (4) Hypotension Code(s): I95.9 - Hypotension, unspecified Status: Acute Plan: Resolved (5) Fall Code(s): W19.XXXA - Unspecified fall, initial encounter Status: Acute Plan: Head CT, cervical spine CT, pelvis x-ray unremarkable See plan below for ankle x-ray, chest x-ray findings (6) Afib Code(s): I48.91 - Unspecified atrial fibrillation Status: Acute Plan: Known history of A. fib Takes metoprolol, Cardizem Increased metoprolol to 3 times daily from twice daily during this hospitalization, better controlled Continuing Eliquis (7) Congestive heart failure Code(s): I50.9 - Heart failure, unspecified Status: Acute Plan: Known history of CHF Takes metoprolol, 80 mg Lasix, Cardizem Decreased Lasix to 40 mg on 10/27 as she had a small increase in her creatinine (8) Hypertension Code(s): I10 - Essential (primary) hypertension Status: Acute Plan: Reported history of hypertension Takes metoprolol, Cardizem, Lasix See plan above (9) Nutrition, metabolism, and development symptoms Code(s): R63.8 - Other symptoms and signs concerning food and fluid intake Status: Acute Plan: Oral fluids Regular diet No significant electrolyte abnormalities on admission Continuing home Eliquis for DVT prophylaxis <Joselito Best - 10/30/18 14:26> - Assessment and Plan 78-year-old female with a history of CHF, A. fib, hypertension, osteoporosis presented to the emergency room after week history of progressive altered mental status with a fall on the day of presentation. Patient was found to have multiple rib fractures, bilateral ankle fractures. Orthopedic surgery consulted and recommending no surgery, will need rehab. Other imaging including a head CT, cervical spine CT, pelvis x-ray were negative. Palliative care consulted to clarify goals of care. Case management consulted for placement. Pain currently well controlled on p.o. medications. Medically cleared for discharge <Joselito Best - 10/30/18 14:34> - Attending Attestation Patient dw resident team. Awaiting discharge. Stable from medical standpoint awaiting placement <Josie Brower R - 10/31/18 09:33> <Joselito Best - Last Filed: 10/30/18 14:26> (1) Bilateral ankle fractures Qualifiers: Encounter type: initial encounter Fracture type: closed Qualified Code(s): S82.891A - Other fracture of right lower leg, initial encounter for closed fracture; S82.892A - Other fracture of left lower leg, initial encounter for closed fracture (2) Multiple rib fractures Qualifiers: Encounter type: initial encounter Fracture type: closed Laterality: bilateral Qualified Code(s): S22.43XA - Multiple fractures of ribs, bilateral, initial encounter for closed fracture (3) Altered mental status Qualifiers: Altered mental status type: unspecified Qualified Code(s): R41.82 - Altered mental status, unspecified <Josie Brower R - Last Filed: 10/31/18 09:33> (1) Bilateral ankle fractures Qualifiers: Encounter type: initial encounter Fracture type: closed Qualified Code(s): S82.891A - Other fracture of right lower leg, initial encounter for closed fracture; S82.892A - Other fracture of left lower leg, initial encounter for closed fracture (2) Multiple rib fractures Qualifiers: Encounter type: initial encounter Fracture type: closed Laterality: bilateral Qualified Code(s): S22.43XA - Multiple fractures of ribs, bilateral, initial encounter for closed fracture (3) Altered mental status Qualifiers: Altered mental status type: unspecified Qualified Code(s): R41.82 - Altered mental status, unspecified <Joselito Best - Last Filed: 10/30/18 14:26> (1) Bilateral ankle fractures Qualifiers: Encounter type: initial encounter Fracture type: closed Qualified Code(s): S82.891A - Other fracture of right lower leg, initial encounter for closed fracture; S82.892A - Other fracture of left lower leg, initial encounter for closed fracture (2) Multiple rib fractures Qualifiers: Encounter type: initial encounter Fracture type: closed Laterality: bilateral Qualified Code(s): S22.43XA - Multiple fractures of ribs, bilateral, initial encounter for closed fracture (3) Altered mental status Qualifiers: Altered mental status type: unspecified Qualified Code(s): R41.82 - Altered mental status, unspecified <Josie Brower - Last Filed: 10/31/18 09:33> (1) Bilateral ankle fractures Qualifiers: Encounter type: initial encounter Fracture type: closed Qualified Code(s): S82.891A - Other fracture of right lower leg, initial encounter for closed fracture; S82.892A - Other fracture of left lower leg, initial encounter for closed fracture (2) Multiple rib fractures Qualifiers: Encounter type: initial encounter Fracture type: closed Laterality: bilateral Qualified Code(s): S22.43XA - Multiple fractures of ribs, bilateral, initial encounter for closed fracture (3) Altered mental status Qualifiers: Altered mental status type: unspecified Qualified Code(s): R41.82 - Altered mental status, unspecified
[2018-10-30] MEDS: oxyCODONE/Acetaminophen 10/325 Tablet PO PRN ×2 (16:14→22:01)
[2018-10-30] MEDS ORDERED: Morphine Inj 4 MG/ML Vial IV.PUSH PRN (23:42)
[2018-10-31] MEDS: oxyCODONE/Acetaminophen 10/325 Tablet PO PRN ×2 (04:53→11:05)
[2018-10-31] MEDS: Furosemide 40 MG Tablet PO SCH (08:16)
[2018-10-31] MEDS: Metoprolol Tartrate 25 MG Tablet PO SCH ×2 (08:16→12:33)
[2018-10-31] MEDS: dilTIAZem CD 240 MG Capsule PO SCH (08:16)
[2018-10-31] MEDS: Senna/Docusate Sodium 8.6/50 MG Tablet PO SCH (08:16)
--- NOTE | 2018-10-31 09:47 | P.PNFP ---
Subjective Interval history: No acute events overnight. Patient is up in chair this morning and says that she overall feels well. Denies any chest pain, does state that she has been short of breath when transferring from bed to chair, but denies any shortness of breath at rest. Denies any nausea, vomiting, abdominal pain. She states the Percocet has been better for pain control as opposed to the [place]. <Joselito Best B - 10/31/18 09:56> Results - Labs Result diagrams: 10/28/18 06:41 10/28/18 06:41 <Josie Brower R - 10/31/18 16:02> Physical Exam Vital signs: Vital Signs 10/30/18 20:00 10/30/18 23:58 10/31/18 04:00 Temperature 97.7 F 98 F 97.8 F Pulse Rate 77 75 107 H Respiratory Rate 17 17 18 Blood Pressure 135/68 128/76 138/84 Pulse Oximetry 94 L 94 L 94 L 10/31/18 08:00 Temperature 97.6 F Pulse Rate 69 Respiratory Rate 18 Blood Pressure 114/94 H Pulse Oximetry 93 L Intake & Output 10/30/18 10/31/18 10/31/18 18:59 06:59 18:59 Intake Total 240 / 240 Output Total 1275 / 1275 700 / 700 Balance -1275 / -1275 -460 / -460 Weight 50 kg Intake: Oral 240 / 240 Output: Urine 1275 / 1275 700 / 700 Other: Date of Last Bowel Movement 10/29/18 10/29/18 # Bowel Movements 0 <Josie Brower R - 10/31/18 16:02> Vital Signs 10/30/18 12:00 10/30/18 16:00 10/30/18 20:00 Temperature 97.6 F 98.3 F 97.7 F Pulse Rate 100 H 73 77 Respiratory Rate 15 16 17 Blood Pressure 113/80 126/79 135/68 Pulse Oximetry 95 95 94 L 10/30/18 23:58 10/31/18 04:00 10/31/18 08:00 Temperature 98 F 97.8 F 97.6 F Pulse Rate 75 107 H 69 Respiratory Rate 17 18 18 Blood Pressure 128/76 138/84 114/94 H Pulse Oximetry 94 L 94 L 93 L Intake & Output 10/30/18 10/31/18 10/31/18 18:59 06:59 18:59 Intake Total 240 / 240 Output Total 1275 / 1275 700 / 700 Balance -1275 / -1275 -460 / -460 Weight 50 kg Intake: Oral 240 / 240 Output: Urine 1275 / 1275 700 / 700 Other: Date of Last Bowel Movement 10/29/18 # Bowel Movements 0 <Joselito Best Viky - 10/31/18 09:47> Narrative: GENERAL: Elderly white female sitting up in chair eating breakfast in no acute distress. Awake and alert and answering questions appropriately SKIN: Warm and dry. HEAD: Atraumatic. Normocephalic. EYES: Pupils equal and round. No scleral icterus. No injection or drainage. ENT: No nasal bleeding or discharge. Mucous membranes pink and moist. NECK: Trachea midline. No JVD. CARDIOVASCULAR: Irregularly irregular rhythm with a rate in the 90s. No murmurs appreciated RESPIRATORY: No accessory muscle use. Clear to auscultation. Breath sounds equal bilaterally. GASTROINTESTINAL: Abdomen soft, non-tender, nondistended. MUSCULOSKELETAL: Extremities without clubbing, cyanosis, or edema. Hard splints of the bilateral lower extremities from the mid tibia down. Adequate capillary refill in the toes, sensation intact, moving toes on command. NEUROLOGICAL: Awake and alert. Normal speech. <Joselito Best - 10/31/18 09:56> Assessment and Plan - Assessment (1) Bilateral ankle fractures Code(s): S82.891A - Other fracture of right lower leg, initial encounter for closed fracture; S82.892A - Other fracture of left lower leg, initial encounter for closed fracture Status: Acute (2) Multiple rib fractures Code(s): S22.49XA - Multiple fractures of ribs, unspecified side, initial encounter for closed fracture Status: Acute (3) Altered mental status Code(s): R41.82 - Altered mental status, unspecified Status: Acute (4) Hypotension Code(s): I95.9 - Hypotension, unspecified Status: Acute (5) Fall Code(s): W19.XXXA - Unspecified fall, initial encounter Status: Acute (6) Afib Code(s): I48.91 - Unspecified atrial fibrillation Status: Acute (7) Congestive heart failure Code(s): I50.9 - Heart failure, unspecified Status: Acute (8) Hypertension Code(s): I10 - Essential (primary) hypertension Status: Acute (9) Nutrition, metabolism, and development symptoms Code(s): R63.8 - Other symptoms and signs concerning food and fluid intake Status: Acute <Josie Brower - 10/31/18 16:02> (1) Bilateral ankle fractures Code(s): S82.891A - Other fracture of right lower leg, initial encounter for closed fracture; S82.892A - Other fracture of left lower leg, initial encounter for closed fracture Status: Acute Plan: Orthopedic surgery consult recommending no surgery and rehab -awaiting placement as patient is medically cleared for discharge Currently on Percocet pain scale (2) Multiple rib fractures Code(s): S22.49XA - Multiple fractures of ribs, unspecified side, initial encounter for closed fracture Status: Acute Plan: Chest x-ray on admission showed fractures of the fourth, fifth, sixth ribs anteriorly on the left Pain control as above (3) Altered mental status Code(s): R41.82 - Altered mental status, unspecified Status: Acute Plan: Patient presented with progressive altered mental status Currently resolved, family reported poor p.o. intake so malnutrition/metabolic disturbances may have been a component Currently eating and drinking well and has gained weight during this hospitalization. (4) Hypotension Code(s): I95.9 - Hypotension, unspecified Status: Acute Plan: Resolved (5) Fall Code(s): W19.XXXA - Unspecified fall, initial encounter Status: Acute Plan: Head CT, cervical spine CT, pelvis x-ray unremarkable See plan below for ankle x-ray, chest x-ray findings (6) Afib Code(s): I48.91 - Unspecified atrial fibrillation Status: Acute Plan: Known history of A. fib Takes metoprolol, Cardizem Well-controlled on current regimen Continuing Eliquis (7) Congestive heart failure Code(s): I50.9 - Heart failure, unspecified Status: Acute Plan: Known history of CHF Decrease Lasix from 80 to40 mg daily during this hospitalization, well controlled (8) Hypertension Code(s): I10 - Essential (primary) hypertension Status: Acute Plan: Reported history of hypertension Takes metoprolol, Cardizem, Lasix See plan above (9) Nutrition, metabolism, and development symptoms Code(s): R63.8 - Other symptoms and signs concerning food and fluid intake Status: Acute Plan: Oral fluids Regular diet No significant electrolyte abnormalities on admission Continuing home Eliquis for DVT prophylaxis <Joselito Best - 10/31/18 09:50> - Assessment and Plan 78-year-old female with a history of CHF, A. fib, hypertension, osteoporosis presented to the emergency room after week history of progressive altered mental status with a fall on the day of presentation. Patient was found to have multiple rib fractures, bilateral ankle fractures. Orthopedic surgery consulted and recommending no surgery, will need rehab. Other imaging including a head CT, cervical spine CT, pelvis x-ray were negative. Palliative care consulted to clarify goals of care. Case management consulted for placement. Pain currently well controlled on p.o. medications. Medically cleared for discharge. Case management working on proximal rehab versus SNF <Joselito Best - 10/31/18 09:56> - Attending Attestation Patient is medically cleared. Stable for discharge. Awaiting placement per case management <Josie Brower R - 10/31/18 16:02> <Joselito Best B - Last Filed: 10/31/18 09:50> (1) Bilateral ankle fractures Qualifiers: Encounter type: initial encounter Fracture type: closed Qualified Code(s): S82.891A - Other fracture of right lower leg, initial encounter for closed fracture; S82.892A - Other fracture of left lower leg, initial encounter for closed fracture (2) Multiple rib fractures Qualifiers: Encounter type: initial encounter Fracture type: closed Laterality: bilateral Qualified Code(s): S22.43XA - Multiple fractures of ribs, bilateral, initial encounter for closed fracture (3) Altered mental status Qualifiers: Altered mental status type: unspecified Qualified Code(s): R41.82 - Altered mental status, unspecified <Josie Brower - Last Filed: 10/31/18 16:02> (1) Bilateral ankle fractures Qualifiers: Encounter type: initial encounter Fracture type: closed Qualified Code(s): S82.891A - Other fracture of right lower leg, initial encounter for closed fracture; S82.892A - Other fracture of left lower leg, initial encounter for closed fracture (2) Multiple rib fractures Qualifiers: Encounter type: initial encounter Fracture type: closed Laterality: bilateral Qualified Code(s): S22.43XA - Multiple fractures of ribs, bilateral, initial encounter for closed fracture (3) Altered mental status Qualifiers: Altered mental status type: unspecified Qualified Code(s): R41.82 - Altered mental status, unspecified <Joselito Best - Last Filed: 10/31/18 09:50> (1) Bilateral ankle fractures Qualifiers: Encounter type: initial encounter Fracture type: closed Qualified Code(s): S82.891A - Other fracture of right lower leg, initial encounter for closed fracture; S82.892A - Other fracture of left lower leg, initial encounter for closed fracture (2) Multiple rib fractures Qualifiers: Encounter type: initial encounter Fracture type: closed Laterality: bilateral Qualified Code(s): S22.43XA - Multiple fractures of ribs, bilateral, initial encounter for closed fracture (3) Altered mental status Qualifiers: Altered mental status type: unspecified Qualified Code(s): R41.82 - Altered mental status, unspecified <Josie Brower R - Last Filed: 10/31/18 16:02> (1) Bilateral ankle fractures Qualifiers: Encounter type: initial encounter Fracture type: closed Qualified Code(s): S82.891A - Other fracture of right lower leg, initial encounter for closed fracture; S82.892A - Other fracture of left lower leg, initial encounter for closed fracture (2) Multiple rib fractures Qualifiers: Encounter type: initial encounter Fracture type: closed Laterality: bilateral Qualified Code(s): S22.43XA - Multiple fractures of ribs, bilateral, initial encounter for closed fracture (3) Altered mental status Qualifiers: Altered mental status type: unspecified Qualified Code(s): R41.82 - Altered mental status, unspecified
--- NOTE | 2018-10-31 12:47 | P.PNPAL ---
Reason for Visit Reason for visit: a. To assist with evaluation and management of symptoms including: Pain, altered mental status, debility b. To assist medical decision maker(s) with: better understanding of current medical conditions; weighing benefits/burdens of medical treatment options; making medical treatment decisions. Subjective Subjective/Interval History: Follow up medically necessary for symptom management. Patient seen and examined in the room in the presence of her daughter Effie Hunt. Patient is currently in bed and is complaining of abdominal discomfort. Patient states that she is constipated, she has not moved her bowels in 72 hours. Patient has multiple prn medications-milk of magnesia 30 mL's p.o. every 12 hours prn-and she has not received any; Dulcolax suppository 10 mg per rectum daily prn-has not received a dose, and lactulose 30 mL's p.o. daily prn-received x1 dose today 11/05/18. Introduced palliative care and its role in symptom management and establishment of goals of medical treatment to patient's daughter Marilee who is patient's designated healthcare surrogate. Re-addressed CODE STATUS with patient in the presence of her daughter. Patient's daughter stated that patient has only told her that the only thing she may not want would be to be intubated. Discussed CPR benefits, complications, limitations and patient elected do not resuscitate and do not intubate. Patient`s daughter agreed to patient`s decision after reviewing CPR, Shock and ACLS drugs. Discussed importance of having a [place], patient and daughter agreeable to completing and signing [place] DNR. Case discussed with bedside RN and Case Management. Family/Friend Interactions: See interval note. . Advance Directives Living Will: Copy in medical record Health Care Surrogate: Copy in medical record Advance Directives Date on File: 01/25/15 Health Care Surrogate Name and Number: Marilee Chou [phone] simpson/ work/[phone] Documented care wishes:: Patient has a living will which states that if patient is in persistent vegetative state and "if my attending or treating physician and another consulting physician have determined that there is no reasonable medical probability of my recovery from such condition I direct that life-prolonging procedures be withheld or withdrawn when the application of such procedures would serve only to prolong artificially the process of dying, and that I be permitted to naturally with only the administration of medication or the performance of any medical procedure deemed necessary to provide me with comfort or to alleviate pain." . Objective Vital Signs: Vital Signs 10/30/18 16:00 10/30/18 20:00 10/30/18 23:58 Temperature 98.3 F 97.7 F 98 F Pulse Rate 73 77 75 Respiratory Rate 16 17 17 Blood Pressure 126/79 135/68 128/76 Pulse Oximetry 95 94 L 94 L 10/31/18 04:00 10/31/18 08:00 Temperature 97.8 F 97.6 F Pulse Rate 107 H 69 Respiratory Rate 18 18 Blood Pressure 138/84 114/94 H Pulse Oximetry 94 L 93 L Intake & Output 10/30/18 10/31/18 10/31/18 18:59 06:59 18:59 Intake Total 240 / 240 Output Total 1275 / 1275 700 / 700 Balance -1275 / -1275 -460 / -460 Weight 50 kg Intake: Oral 240 / 240 Output: Urine 1275 / 1275 700 / 700 Other: Date of Last Bowel Movement 10/29/18 10/29/18 # Bowel Movements 0 Physical Exam: CONSTITUTIONAL/GENERAL: This is a an elderly, cachectic ill-looking patient in no acute distress TUBES/LINES/DRAINS: SKIN: No jaundice, rashes, or lesions. Ecchymoses on upper extremities. Normothermic HEAD: Atraumatic. Normocephalic. EYES: Pupils equal and round and reactive. No scleral icterus. Fundi not examined. ENT: Hearing grossly normal. Nose without bleeding or purulent drainage. NECK: Trachea midline. Supple, nontender. CARDIOVASCULAR: IrRegular rate and rhythm. Peripheral pulses symmetric. RESPIRATORY/CHEST: Symmetric, unlabored respirations. Diminished breath sounds. GASTROINTESTINAL: Abdomen soft, non-tender, nondistended. No guarding. Bowel sounds present. GENITOURINARY: Without palpable bladder distension. MUSCULOSKELETAL: Extremities without clubbing, cyanosis. Splints to bilateral lower extremities and brace to left wrist LYMPHATICS: Did not assess. NEUROLOGICAL: Awake, oriented to self, place and situation. Follows commands with all 4 extremities, decreased strength to bilateral lower extremities and left upper extremity. PSYCHIATRIC: No obvious anxiety/depression. no apparent hallucinations or other psychotic thought process. Diagnostic Tests Result Diagrams: 10/28/18 06:41 10/28/18 06:41 Imaging: Cervical Spine CT 10/25/18 12:15 CONCLUSION: 1. No acute cervical spine abnormality is identified. 2. Multilevel degenerative disc disease similar to the prior examination. Chest X-Ray 10/25/18 12:15 CONCLUSION: Cardiomegaly with mild interstitial edema Left upper rib fractures as described above without pneumothorax. Head CT 10/25/18 12:15 CONCLUSION: 1. Negative for an acute process 2. No significant atrophy . Ankle X-Ray 10/25/18 12:17 CONCLUSION: Nondisplaced fracture lateral malleolus. Pelvis X-Ray 10/25/18 12:17 CONCLUSION: Under mineralized bones. No acute abnormality is identified. Assessment and Plan - Disease Oriented Problem List (1) Multiple rib fractures (2) Bilateral ankle fractures (3) Atrial fibrillation (4) Congestive heart failure (5) Elevated lactic acid level (6) Hypertension (7) Osteoporosis - Symptom Scale (1) Pain 0-10 Scale: 5 Comment: Patient has chronic back pain and he has a spinal stimulator. Recent left wrist fracture. Diagnostics test revealed bilateral ankle fractures and multiple rib fractures. (3) Debility 0-10 Scale: Unable to quantify Comment: Progressive. Ongoing multiple comorbidities and debility. (4) Altered mental status 0-10 Scale: Unable to quantify Comment: Patient has had progressive altered mental status (AMS). Came in for further evaluation of AMS and fall. Pertinent Non-Medical Issues: Psychosocial: Patient is . She has 2 adult daughters and 2 adult sons. Patient worked at [employer] in [place]-now retired. Spiritual: Patient is Hinduism Legal: Patient has a living will. Ethical issues impacting care: None identified at this time. Important Contacts: Healthcare surrogate -daughter- Marilee JacobsonAyDigd-[phone] home/[phone] work/[phone] on living will Daughter-Matt Mcdaniel-[phone] home/[phone] work Son-Daniel Jacobson Son-Raf Jacobson Prognosis: Mrs. Jacobson is an 16-year-old female with a past medical history significant for atrial fibrillation on Eliquis, congestive heart failure, hypertension, hyperlipidemia, osteoporosis, and chronic back pain with a spinal stimulator. Patient was brought to the emergency room on 10/25/18 by EMS for evaluation of altered mental status and patient had a fall today. Clinical course complicated with bilateral ankle fractures and multiple rib fractures. Given ongoing multiple comorbidities and debility, patient remains at high risk for further complications, deterioration and decline. . Code Status: No Code DNR Plan: PLAN: Legal decision maker: Patient came in with altered mental status. 10/28/18 patient is oriented to self, place and situation and appears to be able to weigh in burdens and benefits of treatment. Due to patient`s chief complaint of altered mental status on admission, recommending joint decision making with patient`s [facility] Marilee Jacobson. Goals: Aggressive short of no code. Plan is for patient to be discharged to rehab which she is amenable to. CODE STATUS: No code DNR SYMPTOMS: * Pain:Patient has chronic back pain and he has a spinal stimulator. Recent left wrist fracture. Diagnostics test revealed bilateral ankle fractures and multiple rib fractures. Patient takes Percocet at home. Patient has baclofen 10 mg po every 8 hours prn; Patient complaining of pain to bilateral ankles though she is dozing off during conversation and not showing signs of pain. Hydrocodone is been discontinued and patient has been started on Percocet. Monitor bowel movements, patient is required multiple doses of narcotics in the past 24 hours. * Constipation: Patient states that she has not moved her bowels in the past 2 days last BM 10/28/18. Patient is complaining of abdominal discomfort and states that she is constipated. Patient has been requiring multiple doses of narcotics which may be contributing to constipation. Patient has prn medications that she has not been given yet. She has MOM, Dulcolax suppository. She has only received Lactulose prn 10/31/18. Continue to monitor bowel movements. * Altered mental status: Patient has baseline of confusion but he has progressively worsened in the past [address] was negative for any acute processes. Unsure of etiology of altered mental status at this time. Patient is alert, oriented to self, place and situation today 10/29/18. Resolved. * Debility: Progressive. Patient has multiple ongoing comorbidities. She was recently in rehab after a wrist fracture and CHF. She has also had multiple falls at home. Plan is for patient to be discharged to a rehabilitation facility. Palliative care will continue to follow the patient during hospital course as condition evolves, to assist patient/decision-maker with understanding of their medical conditions, weighing benefits/burdens of treatment options, for clarification of goals of treatment. Additionally will assist with any symptoms of palliative concern Attestation Attestation: To help prompt me to consider important information that might be impacting today's encounter and assessment, information from prior notes written by myself or my colleagues may have been "brought forward" into today's note. My signature on this note, however, is an attestation that I personally performed the exam, history, and/or decision-making noted today, and, unless otherwise indicated, the interactions with patient, family, and staff as well as the review of records all occurred today. I also attest that the listed assessment and stated plan reflect my best clinical judgment today based on the combination of historical information, prior notes, and today's exam/ interactions. When time spent is documented, it refers only to time spent today by the signer, or if indicated, combined time spent today by collaborating physician/nurse practitioner.
== END 2018-10-31 16:42 ==
LOC: NEPE 10:34 → NEDA 13:36 → N04 16:07
PROVIDERS: ADMIT Family Medicine; ATTEND Family Medicine